=== PATIENT | male | born 1945 | race African-American/Black ===

== ENCOUNTER 2016-12-20 19:34 | Inpatient (IN) | payer OTHER, MEDICAID, MEDICARE ==
[~2016-12-20] VITALS: Ht 177.8 cm; Wt 90.6 kg
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
[2016-12-20 20:01] VITALS: BP 129/77; PULSE 67; RESP 18; TEMP 99.1; O2SAT 99
[2016-12-20 20:44] LABS: AUTOMATED NEUTROPHIL # 5.3 TH/MM3 (1.8-7.7); BASOPHIL # 0.1 TH/MM3 (0-0.2); BASOPHIL % 0.8 % (0.0-2.0); EOSINOPHIL # 0.1 TH/MM3 (0-0.4); HEMATOCRIT 33.3 % (39.0-51.0); HEMO FLAGS DIFF FINAL; LYMPH % 13.8 % (9.0-44.0); MEAN CELL VOLUME 84.5 FL (80.0-100.0); MEAN CORPUSCULAR HEMOGLOBIN 28.3 PG (27.0-34.0); MEAN CORPUSCULAR HGB CONC 33.5 % (32.0-36.0); NEUT % 73.4 % (16.0-70.0); PLATELET COUNT 159 TH/MM3 (150-450); RED BLOOD COUNT 3.95 MIL/MM3 (4.50-5.90); RED CELL DISTRIBUTION WIDTH 13.9 % (11.6-17.2); WHITE BLOOD COUNT 7.3 TH/MM3 (4.0-11.0)
[2016-12-20 21:20] LABS: ALKALINE PHOSPHATASE 136 U/L (45-117); ALT (GPT) 25 U/L (12-78); ANION GAP 6 MEQ/L (5-15); AST (GOT) 23 U/L (15-37); BICARBONATE 28.6 MEQ/L (21.0-32.0); BLOOD UREA NITROGEN 22 MG/DL (7-18); CHLORIDE 106 MEQ/L (98-107); GLOMERULAR FILTRATION RATE 57 ML/MIN (>89); SODIUM (NA) 141 MEQ/L (136-145); TOTAL BILIRUBIN ADULT 0.5 MG/DL (0.2-1.0)
[2016-12-20 21:22] LABS: POTASSIUM 4.1 MEQ/L (3.5-5.1)
[2016-12-20] MEDS ORDERED: ARIP1TAB5 PO (22:11)
[2016-12-20] MEDS ORDERED: APLI5INJ2 IM (22:11)
[2016-12-20] MEDS ORDERED: ALUM1SUS PO (22:11)
[2016-12-20] MEDS ORDERED: VITA100018 PO (22:11)
[2016-12-20] MEDS ORDERED: VITA500T49 PO (22:11)
[2016-12-20] MEDS ORDERED: MELA1TAB18 PO (22:11)
[2016-12-20] MEDS ORDERED: ASPI-110 PO (22:11)
[2016-12-20] MEDS ORDERED: LOSA50TA PO (22:11)
[2016-12-20] MEDS ORDERED: ABH TOPICAL (22:11)
[2016-12-20] MEDS ORDERED: METO25TA6 PO (22:11)
[2016-12-20] MEDS ORDERED: BUSP5TAB PO (22:11)
[2016-12-20] MEDS ORDERED: AMLO10TA2 PO (22:11)
[2016-12-20 23:30] VITALS: BP 132/75; PULSE 68; RESP 18; O2SAT 99
[2016-12-20 23:43] LABS: BLOOD, URINE NEG (NEG); COMMENT (UR) CULT NOT INDICATED; CULTURE IF INDICATED CULT NOT INDICATED; GLUCOSE,URINE NEG (NEG); KETONE, URINE NEG (NEG); NITRITE,URINE NEG (NEG); PH, URINE 6.5 (5.0-8.5); URINE COLOR LIGHT-YELLOW (YELLW/STRAW)
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
[2016-12-21 03:00] VITALS: BP 135/80; PULSE 66; RESP 18; O2SAT 99
[2016-12-21 06:34] VITALS: BP 145/83; PULSE 72; RESP 18; O2SAT 100
[2016-12-21 08:07] VITALS: BP 135/102; PULSE 80; RESP 16; O2SAT 95
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
[2016-12-21] MEDS ORDERED: ALUMINUM/MAGNESIUM/SIMETH 30 ML CUP PO PRN (09:45)
[2016-12-21] MEDS: METOPROLOL SUCCINATE 25 MG EXTENDED RELEASE TAB PO SCH (10:23)
[2016-12-21] MEDS: LOSARTAN 50 MG TAB PO SCH (10:23)
[2016-12-21] MEDS: ASPIRIN EC 81 MG TABEC PO SCH (10:23)
[2016-12-21 13:53] VITALS: BP 132/88; PULSE 72; RESP 18; TEMP 98.8
[2016-12-21] MEDS ORDERED: LORazepam 2 MG/ML VIAL ONE (14:41)
[2016-12-21 18:05] VITALS: BP 128/70; PULSE 67; RESP 16; TEMP 97.2; O2SAT 98
[2016-12-21] MEDS: busPIRone HCL 5 MG TAB PO SCH (20:38)
[2016-12-22 06:07] VITALS: BP 132/86; PULSE 66; RESP 20; TEMP 97.6; O2SAT 95
[2016-12-22 08:40] LABS: HEMOGLOBIN A1a 1.2 %; HEMOGLOBIN A1b 1.3 %; HEMOGLOBIN Ao 86.8 %; HEMOGLOBIN LA1C 1.9 %
[2016-12-22] MEDS: LOSARTAN 50 MG TAB PO SCH (08:42)
[2016-12-22] MEDS: ASPIRIN EC 81 MG TABEC PO SCH (08:42)
[2016-12-22] MEDS: METOPROLOL SUCCINATE 25 MG EXTENDED RELEASE TAB PO SCH (08:42)
[2016-12-22] MEDS: busPIRone HCL 5 MG TAB PO SCH ×2 (08:43→22:13)
[2016-12-22 09:17] LABS: ANION GAP 8 MEQ/L (5-15); BICARBONATE 29.7 MEQ/L (21.0-32.0); BLOOD UREA NITROGEN 24 MG/DL (7-18); CHLORIDE 101 MEQ/L (98-107); GLOMERULAR FILTRATION RATE 75 ML/MIN (>89); HDL CHOLESTEROL 43.9 MG/DL (40.0-60.0); LDL CHOLESTEROL 122 MG/DL (0-99); POTASSIUM 4.1 MEQ/L (3.5-5.1); SODIUM (NA) 139 MEQ/L (136-145)
[2016-12-22] MEDS ORDERED: diphenhydrAMINE HCL 50 MG/ML VIAL IM STA (10:01)
[2016-12-22] MEDS ORDERED: LORazepam 2 MG/ML VIAL IM STA (10:05)
[2016-12-22] MEDS ORDERED: HALOPERIDOL LACTATE 5 MG/ML AMP IM STA (10:07)
[2016-12-22] MEDS ORDERED: ALUMINUM/MAGNESIUM/SIMETH 30 ML CUP PO PRN (10:15)
[2016-12-22] MEDS ORDERED: MAGNESIUM HYDROXIDE SUSP 30 ML CUP PO PRN (10:15)
[2016-12-22] MEDS ORDERED: ACETAMINOPHEN 325 MG TAB PO PRN (10:15)
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
--- NOTE | 2016-12-22 11:53 | HHI.PYPN ---
Objective Alert: Yes [place]: Situation (not oriented) Mood: Agitated Affect: Other (labile) Memory Intact: Comment (Impaired for recent, remote) Hallucinations: Other (unable to determine) Delusions: No Suicidal: Ideation (unable to determine) Homicidal: Ideation (unable to determine) Labs Test 12/22/16 07:14 Sodium Level 139 MEQ/L Potassium Level 4.1 MEQ/L Chloride Level 101 MEQ/L Carbon Dioxide Level 29.7 MEQ/L Anion Gap 8 MEQ/L Blood Urea Nitrogen 24 MG/DL Creatinine 1.16 MG/DL Estimat Glomerular Filtration 75 ML/MIN Rate Random Glucose 79 MG/DL Hemoglobin A1c 4.7 % Calcium Level 9.7 MG/DL Triglycerides Level 118 MG/DL Cholesterol Level 189 MG/DL LDL Cholesterol 122 MG/DL HDL Cholesterol 43.9 MG/DL Cholesterol/HDL Ratio 4.30 RATIO Vitamin B12 Level 1981 PG/ML 25-Hydroxy Vitamin D Total 30.8 ng/ML Vitals/IOs Vital Signs Date Time Temp Pulse Resp B/P Pulse Ox O2 Delivery O2 Flow Rate FiO2 12/22/16 06:07 97.6 66 20 132/86 95 12/21/16 08:07 Room Air Intake and Output 12/21/16 12/21/16 12/22/16 08:00 16:00 00:00 Intake Total 840 ml Balance 840 ml Assessment & Plan Problem List: (1) Dementia of Alzheimer's type with behavioral disturbance ICD Code: G30.8 Assessment & Plan Estimated LOS: days Request HC Surrog/Guard Advoc?: Yes Ashu Wolff MD December 22, 2016 11:53
[2016-12-22 17:18] VITALS: BP 123/80; PULSE 60; RESP 16; TEMP 96.5
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
[2016-12-22] MEDS ORDERED: ALUMINUM/MAGNESIUM/SIMETH 30 ML CUP PO SCH (21:00)
[2016-12-23 06:00] VITALS: BP 120/69; PULSE 73; RESP 16; TEMP 98.3; O2SAT 99
[2016-12-23] MEDS: CYANOCOBALAMIN 100 MCG TAB PO SCH (08:29)
[2016-12-23] MEDS: ARIPiprazole 10 MG TAB PO SCH (08:29)
[2016-12-23] MEDS: PRAVASTATIN SOD 20 MG TAB PO SCH (08:29)
[2016-12-23] MEDS: CHOLECALCIFEROL (VIT D3) 1000 UNIT TAB PO SCH (08:29)
[2016-12-23] MEDS: ASPIRIN EC 81 MG TABEC PO SCH (08:29)
[2016-12-23] MEDS: METOPROLOL SUCCINATE 25 MG EXTENDED RELEASE TAB PO SCH (08:29)
[2016-12-23] MEDS: busPIRone HCL 5 MG TAB PO SCH ×2 (08:29→20:47)
[2016-12-23] MEDS: LOSARTAN 50 MG TAB PO SCH (08:29)
[2016-12-23] MEDS: hydrOXYzine HCL 50 MG TAB PO PRN (12:19)
[2016-12-23 13:28] LABS: BICARBONATE 25.4 MEQ/L (21.0-32.0); POTASSIUM 4.2 MEQ/L (3.5-5.1)
--- NOTE | 2016-12-23 16:23 | HHI.PYPN ---
Subjective Remarks Patient seen in day room for staff, patient continues somewhat irritable labile markedly diffusely confused and demented. He is also attempting frequently to get out of his Saranya chair which the true very high fall risk of injury. Will place patient on one-to-one observation. Compliant medication Review of Systems Except as stated in HPI: all other systems reviewed are Neg Objective Alert: Yes [place]: Situation (not oriented) Mood: Agitated Affect: Other (labile) Memory Intact: Comment (Impaired for recent, remote) Hallucinations: Other (unable to determine) Delusions: No Delusion Type: Paranoid Suicidal: Ideation (unable to determine) Homicidal: Ideation (unable to determine) Insight/Judgment Very poor Labs Test 12/23/16 08:03 Sodium Level 138 MEQ/L Potassium Level 4.2 MEQ/L Chloride Level 102 MEQ/L Carbon Dioxide Level 25.4 MEQ/L Anion Gap 11 MEQ/L Blood Urea Nitrogen 23 MG/DL Creatinine 1.20 MG/DL Estimat Glomerular Filtration 73 ML/MIN Rate Random Glucose 99 MG/DL Calcium Level 9.7 MG/DL Thyroid Stimulating Hormone 2.120 uIU/ML 3rd Gen Vitals/IOs Vital Signs Date Time Temp Pulse Resp B/P Pulse Ox O2 Delivery O2 Flow Rate FiO2 12/23/16 06:00 98.3 73 16 120/69 99 12/21/16 08:07 Room Air Intake and Output 12/22/16 12/22/16 12/23/16 08:00 16:00 00:00 Intake Total 480 ml Balance 480 ml Assessment & Plan Problem List: (1) Dementia of Alzheimer's type with behavioral disturbance ICD Code: G30.8 Assessment & Plan Estimated LOS: days patient continues demented confused at times somewhat labile will place on one-to-one observation. Patient scheduled for [facility] [facility] tomorrow Justification for Cont. Inpt. At this time patient will decompensate if placed in a lower level of care Discharge Planning To be determined Request HC Surrog/Guard Advoc?: Yes Problem Qualifiers (1) Dementia of Alzheimer's type with behavioral disturbance: Qualified Code: G30.8 - Alzheimer's dementia with behavioral disturbance, unspecified timing of dementia onset Bharath Espinal MD December 23, 2016 16:23
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
[2016-12-23 20:00] VITALS: BP 104/64; PULSE 69; RESP 18; TEMP 97.4
[2016-12-23] MEDS: MELATONIN 5 MG TAB PO PRN (20:47)
[2016-12-24] MEDS: diphenhydrAMINE HCL 50 MG CAP PO PRN ×2 (01:39→21:31)
[2016-12-24] MEDS: hydrOXYzine HCL 50 MG TAB PO PRN ×2 (02:48→21:31)
[2016-12-24 05:00] VITALS: BP 93/56; PULSE 62; RESP 17; TEMP 96.5
[2016-12-24 08:34] VITALS: BP 110/60; PULSE 68
[2016-12-24] MEDS: ARIPiprazole 10 MG TAB PO SCH (09:00)
[2016-12-24] MEDS: METOPROLOL SUCCINATE 25 MG EXTENDED RELEASE TAB PO SCH (09:00)
[2016-12-24] MEDS: CYANOCOBALAMIN 100 MCG TAB PO SCH (09:00)
[2016-12-24] MEDS: busPIRone HCL 5 MG TAB PO SCH ×2 (09:00→21:31)
[2016-12-24] MEDS: PRAVASTATIN SOD 20 MG TAB PO SCH (09:00)
[2016-12-24] MEDS: CHOLECALCIFEROL (VIT D3) 1000 UNIT TAB PO SCH (09:00)
[2016-12-24] MEDS: LOSARTAN 50 MG TAB PO SCH (09:00)
[2016-12-24] MEDS: ASPIRIN EC 81 MG TABEC PO SCH (09:00)
--- NOTE | 2016-12-24 10:45 | HHI.PYPN ---
Subjective Remarks Patient seen in [place] [facility], patient case continued by Suction Operator Shauna. Chart reviewed, Patient remains confused disoriented and demented. Though no significant behavioral problems noted, compliant medications. It appears to maybe placement available for this gentleman in the near future. We'll continue to work with this and with family Review of Systems Except as stated in HPI: all other systems reviewed are Neg Objective Alert: Yes [place]: Situation (not oriented) Mood: Agitated Affect: Other (labile) Memory Intact: Comment (Impaired for recent, remote) Hallucinations: Other (unable to determine) Delusions: No Delusion Type: Paranoid Suicidal: Ideation (unable to determine) Homicidal: Ideation (unable to determine) Insight/Judgment Poor Vitals/IOs Vital Signs Date Time Temp Pulse Resp B/P Pulse Ox O2 Delivery O2 Flow Rate FiO2 12/24/16 08:34 68 110/60 12/24/16 05:00 96.5 17 12/23/16 06:00 99 12/21/16 08:07 Room Air Intake and Output 12/23/16 12/23/16 12/24/16 08:00 16:00 00:00 Intake Total 1440 ml 1440 ml Balance 1440 ml 1440 ml Assessment & Plan Problem List: (1) Dementia of Alzheimer's type with behavioral disturbance ICD Code: G30.8 Assessment & Plan Estimated LOS: days patient continues confused and demented, cases been continued by [facility] [facility] production clerks supervisor Shauna. Compliant medication. Justification for Cont. Inpt. At this time patient will decompensate in place to the lower level of care Discharge Planning To be determined Request HC Surrog/Guard Advoc?: Yes Problem Qualifiers (1) Dementia of Alzheimer's type with behavioral disturbance: Qualified Code: G30.8 - Alzheimer's dementia with behavioral disturbance, unspecified timing of dementia onset Bharath Espinal MD Dec 24, 2016 10:45
[2016-12-24 18:00] VITALS: BP 138/77; PULSE 69; RESP 18; TEMP 96.7
[2016-12-25] MEDS: MAGNESIUM HYDROXIDE SUSP 30 ML CUP PO PRN (05:59)
[2016-12-25 06:00] VITALS: BP 153/87; PULSE 64; RESP 16; TEMP 98.2
[2016-12-25] MEDS: ASPIRIN EC 81 MG TABEC PO SCH (09:31)
[2016-12-25] MEDS: METOPROLOL SUCCINATE 25 MG EXTENDED RELEASE TAB PO SCH (09:31)
[2016-12-25] MEDS: ARIPiprazole 10 MG TAB PO SCH (09:31)
[2016-12-25] MEDS: LOSARTAN 50 MG TAB PO SCH (09:31)
[2016-12-25] MEDS: PRAVASTATIN SOD 20 MG TAB PO SCH (09:31)
[2016-12-25] MEDS: CYANOCOBALAMIN 100 MCG TAB PO SCH (09:31)
[2016-12-25] MEDS: busPIRone HCL 5 MG TAB PO SCH ×2 (09:31→20:25)
[2016-12-25] MEDS: CHOLECALCIFEROL (VIT D3) 1000 UNIT TAB PO SCH (09:31)
--- NOTE | 2016-12-25 13:14 | HHI.PYPN ---
Subjective Remarks Patient seen in dayroom with nurse pain. Chart reviewed. Patient this time calm dosing arousable to confused and mildly irritable. Staff states earlier today he was somewhat more irritable especially toward staff. Compliant medications. For now continue treatment Review of Systems Except as stated in HPI: all other systems reviewed are Neg Objective Alert: Yes [place]: Situation (not oriented) Mood: Agitated Affect: Other (labile) Memory Intact: Comment (Impaired for recent, remote) Hallucinations: Other (unable to determine) Delusions: No Delusion Type: Paranoid Suicidal: Ideation (unable to determine) Homicidal: Ideation (unable to determine) Insight/Judgment Poor Vitals/IOs Vital Signs Date Time Temp Pulse Resp B/P Pulse Ox O2 Delivery O2 Flow Rate FiO2 12/25/16 06:00 98.2 64 16 153/87 12/23/16 06:00 99 12/21/16 08:07 Room Air Intake and Output 12/24/16 12/24/16 12/25/16 08:00 16:00 00:00 Intake Total 960 ml 1200 ml 480 ml Balance 960 ml 1200 ml 480 ml Assessment & Plan Problem List: (1) Dementia of Alzheimer's type with behavioral disturbance ICD Code: G30.8 Assessment & Plan Estimated LOS: days patient remains quite confused demented, with some behavioral issues. Compliant medication. For now continue treatment Justification for Cont. Inpt. At this time patient will decompensate the placed in a lower level of care Discharge Planning To be determined Request HC Surrog/Guard Advoc?: Yes Problem Qualifiers (1) Dementia of Alzheimer's type with behavioral disturbance: Qualified Code: G30.8 - Alzheimer's dementia with behavioral disturbance, unspecified timing of dementia onset Bharath Espinal MD Dec 25, 2016 13:14
[2016-12-25 19:25] VITALS: BP 127/81; PULSE 77; RESP 16; TEMP 97.2; O2SAT 95
[2016-12-25] MEDS: hydrOXYzine HCL 50 MG TAB PO PRN (20:24)
[2016-12-25] MEDS: MELATONIN 5 MG TAB PO PRN (20:25)
[2016-12-26 05:35] VITALS: BP 122/60; PULSE 61; RESP 12; TEMP 97.2; O2SAT 97
[2016-12-26] MEDS: ARIPiprazole 10 MG TAB PO SCH (08:42)
[2016-12-26] MEDS: ASPIRIN EC 81 MG TABEC PO SCH (08:43)
[2016-12-26] MEDS: METOPROLOL SUCCINATE 25 MG EXTENDED RELEASE TAB PO SCH (08:43)
[2016-12-26] MEDS: busPIRone HCL 5 MG TAB PO SCH ×2 (08:43→21:51)
[2016-12-26] MEDS: CHOLECALCIFEROL (VIT D3) 1000 UNIT TAB PO SCH (08:43)
[2016-12-26] MEDS: LOSARTAN 50 MG TAB PO SCH (08:43)
[2016-12-26] MEDS: PRAVASTATIN SOD 20 MG TAB PO SCH (08:43)
[2016-12-26] MEDS: CYANOCOBALAMIN 100 MCG TAB PO SCH (08:43)
[2016-12-26] MEDS ORDERED: LORazepam 2 MG/ML VIAL IM STA (10:16)
[2016-12-26] MEDS ORDERED: diphenhydrAMINE HCL 50 MG/ML VIAL IM STA (10:16)
[2016-12-26] MEDS ORDERED: HALOPERIDOL LACTATE 5 MG/ML AMP IM STA (10:16)
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
[2016-12-26] MEDS ORDERED: diphenhydrAMINE HCL 50 MG/ML VIAL IM ONE (16:15)
[2016-12-26] MEDS ORDERED: HALOPERIDOL LACTATE 5 MG/ML AMP IM ONE (16:15)
[2016-12-26] MEDS ORDERED: LORazepam 2 MG/ML VIAL IM ONE (16:15)
[2016-12-26 18:00] VITALS: BP 123/73; PULSE 60; RESP 16; TEMP 96.8; O2SAT 99
[2016-12-27 06:27] VITALS: BP 136/85; PULSE 65; RESP 16; TEMP 98.5; O2SAT 98
[2016-12-27] MEDS: hydrOXYzine HCL 50 MG TAB PO PRN ×2 (09:23→14:14)
[2016-12-27] MEDS: PRAVASTATIN SOD 20 MG TAB PO SCH (09:23)
[2016-12-27] MEDS: LOSARTAN 50 MG TAB PO SCH (09:23)
[2016-12-27] MEDS: busPIRone HCL 5 MG TAB PO SCH ×2 (09:23→21:01)
[2016-12-27] MEDS: CYANOCOBALAMIN 100 MCG TAB PO SCH (09:23)
[2016-12-27] MEDS: ARIPiprazole 10 MG TAB PO SCH (09:24)
[2016-12-27] MEDS: CHOLECALCIFEROL (VIT D3) 1000 UNIT TAB PO SCH (09:24)
[2016-12-27] MEDS: ASPIRIN EC 81 MG TABEC PO SCH (09:24)
[2016-12-27] MEDS: METOPROLOL SUCCINATE 25 MG EXTENDED RELEASE TAB PO SCH (09:24)
--- NOTE | 2016-12-27 10:52 | HHI.PYPN ---
Subjective Remarks Pt seen and discussed with staff. No aggression or agitation today with 1:1 staff. He remains irritable but has been more redirectable. Took medications without complaint. No side effects. Objective Alert: Yes [place]: Person Mood: Other (irritable) Affect: Restricted Memory Intact: Comment (impaired) Hallucinations: Other (none) Delusions: Yes Delusion Type: Paranoid Suicidal: Ideation (unable to determine) Homicidal: Ideation (unable to determine) Insight/Judgment poor Vitals/IOs Vital Signs Date Time Temp Pulse Resp B/P Pulse Ox O2 Delivery O2 Flow Rate FiO2 12/27/16 06:27 98.5 65 16 136/85 98 Intake and Output 12/26/16 12/26/16 12/27/16 08:00 16:00 00:00 Intake Total 0 ml 1630 ml Output Total 550 ml Balance 0 ml 1080 ml Assessment & Plan Problem List: (1) Dementia of Alzheimer's type with behavioral disturbance ICD Code: G30.8 Assessment & Plan Continue current tx plan. Estimated LOS: days Justification for Cont. Inpt. impairments in safety Request HC Surrog/Guard Advoc?: Yes Problem Qualifiers (1) Dementia of Alzheimer's type with behavioral disturbance: Qualified Code: G30.8 - Alzheimer's dementia with behavioral disturbance, unspecified timing of dementia onset Ramona Garcia MD Dec 27, 2016 10:52
[2016-12-27 18:55] VITALS: BP 131/75; PULSE 75; RESP 18; TEMP 97.2
[2016-12-28 05:53] VITALS: BP 120/55; PULSE 60; RESP 20; TEMP 97.8; O2SAT 97
[2016-12-28] MEDS: PRAVASTATIN SOD 20 MG TAB PO SCH (09:33)
[2016-12-28] MEDS: CYANOCOBALAMIN 100 MCG TAB PO SCH (09:33)
[2016-12-28] MEDS: busPIRone HCL 5 MG TAB PO SCH ×2 (09:33→20:26)
[2016-12-28] MEDS: ARIPiprazole 10 MG TAB PO SCH (09:33)
[2016-12-28] MEDS: LOSARTAN 50 MG TAB PO SCH (09:33)
[2016-12-28] MEDS: CHOLECALCIFEROL (VIT D3) 1000 UNIT TAB PO SCH (09:33)
[2016-12-28] MEDS: ASPIRIN EC 81 MG TABEC PO SCH (09:33)
[2016-12-28] MEDS: METOPROLOL SUCCINATE 25 MG EXTENDED RELEASE TAB PO SCH (09:33)
[2016-12-28] MEDS ORDERED: LORazepam 2 MG/ML VIAL IM STA (11:21)
[2016-12-28] MEDS ORDERED: HALOPERIDOL LACTATE 5 MG/ML AMP IM STA (11:21)
[2016-12-28] MEDS ORDERED: diphenhydrAMINE HCL 50 MG/ML VIAL IM STA (11:21)
[2016-12-28] MEDS ORDERED: LORazepam 2 MG/ML VIAL ONE (11:22)
[2016-12-28] MEDS ORDERED: diphenhydrAMINE HCL 50 MG/ML VIAL ONE (11:22)
[2016-12-28] MEDS ORDERED: HALOPERIDOL LACTATE 5 MG/ML AMP ONE (11:22)
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
--- NOTE | 2016-12-28 16:21 | PD.TTN ---
Present for Treatment Team Treatment Team Staff: Provider (Dr. Espinal), Nurse (Juan Alberto), Psych Therapist ( HAKEEM Fishman), Other (Regi, recreation therapy) Patient Problems 1. Discharge planning 2. Medication compliance 3. Knowledge deficit 4. Lack of coping skills Progress Toward Goals Provider Input: Dr. Bronw reported the patient has remained fiesty & aggressive. Patient's medication will be discontinued and Dr. Espinal will try another medication in an effort to see more stabilization. Psych Therapist Input: Patient remains aggressive towards peers and staff and placement will be a challenge due to these aggressive behaviors. Documentation Scribe: HAKEEM Fishman Date Resolved: Dec 28, 2016 Madyson Stanford Dec 28, 2016 16:21
[2016-12-28 18:00] VITALS: BP 103/63; PULSE 87; RESP 18; TEMP 98.2
[2016-12-28] MEDS: hydrOXYzine HCL 50 MG TAB PO PRN (20:26)
[2016-12-28] MEDS: MELATONIN 5 MG TAB PO PRN (20:26)
[2016-12-28] MEDS: QUEtiapine FUMARATE 25 MG TAB PO SCH (20:26)
[2016-12-29 05:41] VITALS: BP 97/56; PULSE 60; RESP 16; TEMP 97.5; O2SAT 96
[2016-12-29] MEDS: QUEtiapine FUMARATE 25 MG TAB PO SCH ×3 (08:00→20:54)
[2016-12-29] MEDS: busPIRone HCL 5 MG TAB PO SCH ×2 (08:40→20:54)
[2016-12-29] MEDS: PRAVASTATIN SOD 20 MG TAB PO SCH (08:40)
[2016-12-29] MEDS: CYANOCOBALAMIN 100 MCG TAB PO SCH (08:40)
[2016-12-29] MEDS: ASPIRIN EC 81 MG TABEC PO SCH (08:40)
[2016-12-29] MEDS: CHOLECALCIFEROL (VIT D3) 1000 UNIT TAB PO SCH (08:40)
[2016-12-29] MEDS: METOPROLOL SUCCINATE 25 MG EXTENDED RELEASE TAB PO SCH (08:41)
[2016-12-29] MEDS: LOSARTAN 50 MG TAB PO SCH (09:00)
--- NOTE | 2016-12-29 12:13 | HHI.PYPN ---
Subjective Remarks Patient seen in day room with nurse Juan Alberto, chart review, patient compliant medications. It appears he remains somewhat impulsive appears earlier today he did staff and they are. With me at this time patient was calm mumbling confusingly though no explosiveness noted for now continue treatment Review of Systems Except as stated in HPI: all other systems reviewed are Neg Objective Alert: Yes [place]: Person Mood: Other (irritable) Affect: Restricted Memory Intact: Comment (impaired) Hallucinations: Other (none) Delusions: Yes Delusion Type: Paranoid Suicidal: Ideation (unable to determine) Homicidal: Ideation (unable to determine) Insight/Judgment Very poor Vitals/IOs Vital Signs Date Time Temp Pulse Resp B/P Pulse Ox O2 Delivery O2 Flow Rate FiO2 12/29/16 05:41 97.5 60 16 97/56 96 Intake and Output 12/28/16 12/28/16 12/29/16 08:00 16:00 00:00 Intake Total 240 ml 720 ml Balance 240 ml 720 ml Assessment & Plan Problem List: (1) Dementia of Alzheimer's type with behavioral disturbance ICD Code: G30.8 Assessment & Plan Estimated LOS: days patient continues implanted at times somewhat explosive with his behavior. Patient compliant with medication changes done yesterday. For now continue treatment Justification for Cont. Inpt. At this time patient will decompensate placed in a lower level of care Discharge Planning To be determined Request HC Surrog/Guard Advoc?: Yes Problem Qualifiers (1) Dementia of Alzheimer's type with behavioral disturbance: Qualified Code: G30.8 - Alzheimer's dementia with behavioral disturbance, unspecified timing of dementia onset Bharath Espinal MD Dec 29, 2016 12:13
[2016-12-29 17:55] VITALS: BP 136/88
[2016-12-29] MEDS: MELATONIN 5 MG TAB PO PRN (20:53)
[2016-12-29] MEDS: hydrOXYzine HCL 50 MG TAB PO PRN (20:55)
[2016-12-30 05:23] VITALS: BP 145/76; PULSE 60; RESP 18; TEMP 96.8; O2SAT 98
[2016-12-30] MEDS: QUEtiapine FUMARATE 25 MG TAB PO SCH ×3 (08:00→20:34)
[2016-12-30] MEDS: busPIRone HCL 5 MG TAB PO SCH ×2 (08:53→20:16)
[2016-12-30] MEDS: ASPIRIN EC 81 MG TABEC PO SCH (08:53)
[2016-12-30] MEDS: LOSARTAN 50 MG TAB PO SCH (08:53)
[2016-12-30] MEDS: CYANOCOBALAMIN 100 MCG TAB PO SCH (08:54)
[2016-12-30] MEDS: METOPROLOL SUCCINATE 25 MG EXTENDED RELEASE TAB PO SCH (08:54)
[2016-12-30] MEDS: PRAVASTATIN SOD 20 MG TAB PO SCH (08:54)
[2016-12-30] MEDS: CHOLECALCIFEROL (VIT D3) 1000 UNIT TAB PO SCH (08:54)
--- NOTE | 2016-12-30 09:04 | HHI.PYPN ---
Subjective Remarks Patient seen in day room with nurse Sandra, patient eating breakfast, patient calm somewhat more alert, continues markedly disorganized speech and diffusely confused. There appears that he might have recognize me from prior visits patient compliant medication staff states he slept better last night Review of Systems Except as stated in HPI: all other systems reviewed are Neg Objective Alert: Yes [place]: Person Mood: Other (irritable) Affect: Restricted Memory Intact: Comment (impaired) Hallucinations: Other (none) Delusions: Yes Delusion Type: Paranoid Suicidal: Ideation (unable to determine) Homicidal: Ideation (unable to determine) Insight/Judgment Very poor Vitals/IOs Vital Signs Date Time Temp Pulse Resp B/P Pulse Ox O2 Delivery O2 Flow Rate FiO2 12/30/16 05:23 96.8 60 18 145/76 98 Intake and Output 12/29/16 12/29/16 12/30/16 08:00 16:00 00:00 Intake Total 0 ml 480 ml Output Total 200 ml Balance -200 ml 480 ml Assessment & Plan Problem List: (1) Dementia of Alzheimer's type with behavioral disturbance ICD Code: G30.8 Assessment & Plan Estimated LOS: days patient continues markedly demented confused though at the present time calm cooperative Justification for Cont. Inpt. At this time patient will decompensate with placed a lower level of care Discharge Planning To be determined Request HC Surrog/Guard Advoc?: Yes Problem Qualifiers (1) Dementia of Alzheimer's type with behavioral disturbance: Qualified Code: G30.8 - Alzheimer's dementia with behavioral disturbance, unspecified timing of dementia onset Bharath Espinal MD Dec 30, 2016 09:04
[2016-12-30 19:40] VITALS: BP 132/63; PULSE 72; RESP 18; TEMP 98.2
[2016-12-31] MEDS: QUEtiapine FUMARATE 25 MG TAB PO SCH ×3 (08:00→20:17)
[2016-12-31 08:45] VITALS: BP 120/63; PULSE 69; RESP 16; TEMP 97.1; O2SAT 99
[2016-12-31] MEDS: METOPROLOL SUCCINATE 25 MG EXTENDED RELEASE TAB PO SCH (09:00)
[2016-12-31] MEDS: PRAVASTATIN SOD 20 MG TAB PO SCH (09:00)
[2016-12-31] MEDS: ASPIRIN EC 81 MG TABEC PO SCH (09:00)
[2016-12-31] MEDS: LOSARTAN 50 MG TAB PO SCH (09:00)
[2016-12-31] MEDS: CHOLECALCIFEROL (VIT D3) 1000 UNIT TAB PO SCH (09:00)
[2016-12-31] MEDS: busPIRone HCL 5 MG TAB PO SCH ×2 (09:00→20:15)
[2016-12-31] MEDS: CYANOCOBALAMIN 100 MCG TAB PO SCH (09:00)
--- NOTE | 2016-12-31 10:59 | HHI.PYPN ---
Subjective Remarks Patient seen in day room with nurse Shanice, chart review, patient compliant medication. Patient continues markedly confused and disoriented though it appears his behaviors are softening this time increasing in intensity frequency and duration. For now continue treatment Review of Systems Except as stated in HPI: all other systems reviewed are Neg Objective Alert: Yes [place]: Person Mood: Other (irritable) Affect: Restricted Memory Intact: Comment (impaired) Hallucinations: Other (none) Delusions: Yes Delusion Type: Paranoid Suicidal: Ideation (unable to determine) Homicidal: Ideation (unable to determine) Insight/Judgment Poor Vitals/IOs Vital Signs Date Time Temp Pulse Resp B/P Pulse Ox O2 Delivery O2 Flow Rate FiO2 12/31/16 08:45 97.1 69 16 120/63 99 Intake and Output 12/30/16 12/30/16 12/31/16 08:00 16:00 00:00 Intake Total 360 ml 360 ml 720 ml Balance 360 ml 360 ml 720 ml Assessment & Plan Problem List: (1) Dementia of Alzheimer's type with behavioral disturbance ICD Code: G30.8 Assessment & Plan Estimated LOS: days patient continues demented confused, though it appears his behavioral issues are starting to soften. For now continue treatment Justification for Cont. Inpt. At this time patient will decompensate the placed in the lower level of care Discharge Planning To be determined Request HC Surrog/Guard Advoc?: Yes Problem Qualifiers (1) Dementia of Alzheimer's type with behavioral disturbance: Qualified Code: G30.8 - Alzheimer's dementia with behavioral disturbance, unspecified timing of dementia onset Bharath Espinal MD Dec 31, 2016 10:59
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
[2016-12-31 18:31] VITALS: BP 131/68; PULSE 68; RESP 18; TEMP 97.3; O2SAT 99
[2016-12-31] MEDS: diphenhydrAMINE HCL 50 MG CAP PO PRN (20:15)
[2017-01-01 05:00] VITALS: BP 143/76; PULSE 70; RESP 17; TEMP 97.1; O2SAT 98
[2017-01-01] MEDS: ASPIRIN EC 81 MG TABEC PO SCH (08:13)
[2017-01-01] MEDS: CYANOCOBALAMIN 100 MCG TAB PO SCH (08:14)
[2017-01-01] MEDS: busPIRone HCL 5 MG TAB PO SCH ×2 (08:14→20:26)
[2017-01-01] MEDS: hydrOXYzine HCL 50 MG TAB PO PRN (08:14)
[2017-01-01] MEDS: LOSARTAN 50 MG TAB PO SCH (08:14)
[2017-01-01] MEDS: CHOLECALCIFEROL (VIT D3) 1000 UNIT TAB PO SCH (08:14)
[2017-01-01] MEDS: METOPROLOL SUCCINATE 25 MG EXTENDED RELEASE TAB PO SCH (08:14)
[2017-01-01] MEDS: PRAVASTATIN SOD 20 MG TAB PO SCH (08:14)
[2017-01-01] MEDS: QUEtiapine FUMARATE 25 MG TAB PO SCH ×3 (08:25→20:28)
--- NOTE | 2017-01-01 11:07 | HHI.PYPN ---
Subjective Remarks Patient seen in day room with nurse Ortega, chart review, patient compliant medications. Patient continues markedly confused disoriented, patient noted recently to be making gestures in the air as if reaching for things. However no aggressive behaviors have been noted towards staff or patients. For now continue treatment Review of Systems Except as stated in HPI: all other systems reviewed are Neg Objective Alert: Yes [place]: Person Mood: Other (irritable) Affect: Restricted Memory Intact: Comment (impaired) Hallucinations: Other (none) Delusions: Yes Delusion Type: Paranoid Suicidal: Ideation (unable to determine) Homicidal: Ideation (unable to determine) Insight/Judgment Very poor Vitals/IOs Vital Signs Date Time Temp Pulse Resp B/P Pulse Ox O2 Delivery O2 Flow Rate FiO2 01/01/17 05:00 97.1 70 17 143/76 98 Intake and Output 12/31/16 12/31/16 01/01/17 08:00 16:00 00:00 Intake Total 240 ml 3360 ml Balance 240 ml 3360 ml Assessment & Plan Problem List: (1) Dementia of Alzheimer's type with behavioral disturbance ICD Code: G30.8 Assessment & Plan Estimated LOS: days patient continues demented and confused, though the been no significant behavioral problems noted. Compliant medications Justification for Cont. Inpt. At this time patient will decompensate if placed in a lower level of care Discharge Planning To be determined Request HC Surrog/Guard Advoc?: Yes Problem Qualifiers (1) Dementia of Alzheimer's type with behavioral disturbance: Qualified Code: G30.8 - Alzheimer's dementia with behavioral disturbance, unspecified timing of dementia onset Bharath Espinal MD Jan 01, 2017 11:07
[2017-01-01 18:00] VITALS: BP 126/76; PULSE 77; RESP 17; TEMP 97.6; O2SAT 96
[2017-01-01] MEDS: diphenhydrAMINE HCL 50 MG CAP PO PRN (20:26)
[2017-01-02 06:02] VITALS: BP 136/75; PULSE 65; RESP 16; TEMP 96.8; O2SAT 98
[2017-01-02] MEDS: QUEtiapine FUMARATE 25 MG TAB PO SCH ×3 (08:00→20:25)
[2017-01-02] MEDS: CHOLECALCIFEROL (VIT D3) 1000 UNIT TAB PO SCH (09:00)
[2017-01-02] MEDS: LOSARTAN 50 MG TAB PO SCH (09:00)
[2017-01-02] MEDS: ASPIRIN EC 81 MG TABEC PO SCH (09:00)
[2017-01-02] MEDS: busPIRone HCL 5 MG TAB PO SCH ×2 (09:00→20:25)
[2017-01-02] MEDS: METOPROLOL SUCCINATE 25 MG EXTENDED RELEASE TAB PO SCH (09:00)
[2017-01-02] MEDS: PRAVASTATIN SOD 20 MG TAB PO SCH (09:00)
[2017-01-02] MEDS: CYANOCOBALAMIN 100 MCG TAB PO SCH (09:00)
[2017-01-02] MEDS: HALOPERIDOL LACTATE 5 MG/ML AMP IM PRN (12:40)
[2017-01-02] MEDS: LORazepam 2 MG/ML VIAL IM PRN (12:40)
[2017-01-02] MEDS: diphenhydrAMINE HCL 50 MG/ML VIAL IM PRN (12:40)
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
[2017-01-02 18:00] VITALS: BP 140/81; PULSE 73; RESP 16; TEMP 97.6; O2SAT 100
[2017-01-03 06:27] VITALS: BP 124/68; PULSE 59; RESP 16; TEMP 97.5; O2SAT 100
[2017-01-03] MEDS: METOPROLOL SUCCINATE 25 MG EXTENDED RELEASE TAB PO SCH (09:47)
[2017-01-03] MEDS: PRAVASTATIN SOD 20 MG TAB PO SCH (09:47)
[2017-01-03] MEDS: CHOLECALCIFEROL (VIT D3) 1000 UNIT TAB PO SCH (09:47)
[2017-01-03] MEDS: LOSARTAN 50 MG TAB PO SCH (09:47)
[2017-01-03] MEDS: CYANOCOBALAMIN 100 MCG TAB PO SCH (09:47)
[2017-01-03] MEDS: busPIRone HCL 5 MG TAB PO SCH ×2 (09:47→20:20)
[2017-01-03] MEDS: ASPIRIN EC 81 MG TABEC PO SCH (09:47)
[2017-01-03] MEDS: QUEtiapine FUMARATE 25 MG TAB PO SCH ×3 (09:49→20:20)
--- NOTE | 2017-01-03 13:19 | HHI.PYPN ---
Subjective Remarks Patient was seen and case discussed with nursing. Patient remains confused and disorganized. Alert and oriented 1. Has not had a need for more ETO's. No longer combative. Compliant with medications Objective Alert: Yes [place]: Person Mood: Calm Affect: Flat Memory Intact: Comment (impaired) Hallucinations: Other (none) Delusions: Yes Delusion Type: Paranoid Suicidal: Ideation (unable to determine) Homicidal: Ideation (unable to determine) Insight/Judgment Poor Vitals/IOs Vital Signs Date Time Temp Pulse Resp B/P Pulse Ox O2 Delivery O2 Flow Rate FiO2 01/03/17 06:27 97.5 59 16 124/68 100 Intake and Output 01/02/17 01/02/17 01/03/17 08:00 16:00 00:00 Intake Total 0 ml 360 ml 960 ml Balance 0 ml 360 ml 960 ml Assessment & Plan Problem List: (1) Dementia of Alzheimer's type with behavioral disturbance ICD Code: G30.8 Assessment & Plan Continue current treatment plan Justification for Cont. Inpt. Patient will decompensate in a less restrictive setting Request HC Surrog/Guard Advoc?: Yes Problem Qualifiers (1) Dementia of Alzheimer's type with behavioral disturbance: Qualified Code: G30.8 - Alzheimer's dementia with behavioral disturbance, unspecified timing of dementia onset Omkar Lazcano DO Jan 03, 2017 13:19
[2017-01-03] MEDS: hydrOXYzine HCL 50 MG TAB PO PRN (13:28)
[2017-01-03 20:00] VITALS: BP 130/72; PULSE 63; RESP 16; TEMP 98
[2017-01-03] MEDS: diphenhydrAMINE HCL 50 MG CAP PO PRN (20:20)
[2017-01-04 05:48] VITALS: BP 138/64; PULSE 59; RESP 16; TEMP 97.5; O2SAT 97
[2017-01-04] MEDS: QUEtiapine FUMARATE 25 MG TAB PO SCH ×3 (08:00→20:36)
[2017-01-04] MEDS: ASPIRIN EC 81 MG TABEC PO SCH (09:00)
[2017-01-04] MEDS: METOPROLOL SUCCINATE 25 MG EXTENDED RELEASE TAB PO SCH (09:00)
[2017-01-04] MEDS: LOSARTAN 50 MG TAB PO SCH (09:00)
[2017-01-04 09:41] VITALS: BP 112/61; PULSE 66
[2017-01-04] MEDS: PRAVASTATIN SOD 20 MG TAB PO SCH (09:52)
[2017-01-04] MEDS: CYANOCOBALAMIN 100 MCG TAB PO SCH (09:52)
[2017-01-04] MEDS: busPIRone HCL 5 MG TAB PO SCH ×2 (09:52→20:36)
[2017-01-04] MEDS: CHOLECALCIFEROL (VIT D3) 1000 UNIT TAB PO SCH (09:52)
--- NOTE | 2017-01-04 11:27 | PD.TTN ---
Present for Treatment Team Treatment Team Staff: Provider (Dr. Espinal), Psych Therapist (Madyson Stanford), Other Clinician (rec. Regi therapy) Patient Problems 1. Discharge planning 2. Medication compliance 3. Knowledge deficit 4. Lack of coping skills Progress Toward Goals Provider Input: Dr. Espinal reported the patient's status remains unchanged. Psych Therapist Input: Counselor reported the patient continues to be a placement issue as a result of his previous behaviors at a residential facillity. Patient remains compliant with medications and oriented to person at least. Patient continues to lack insight into his mental illness, and today her appears to be coping appropriately on the unit. Nursing notes indicated the patient became combative with peers and staff over the weekend and received an injection. Per nursing notes, the patient responded well to the injection and was in good behavioral control the remainder of the weekend. Other Clinican Input: rec. Regi therapy, reported the patient is visible on the unit and unable to tolerate the group activities. Documentation Scribe: Madyson Stanford Date Resolved: Jan 04, 2017 Madyson Stanford [facility] Jan 04, 2017 11:27
--- NOTE | 2017-01-04 13:47 | HHI.PYPN ---
Subjective Remarks Patient seen in day room in Saranya chair with nurse Nguyen, chart reviewed, patient compliant medications. Patient continues confused disoriented, though he has been no significant behavioral problems recently. Patient continues to needs significant interventions and assistance by staff For now continue treatment Review of Systems Except as stated in HPI: all other systems reviewed are Neg Objective Alert: Yes [place]: Person Mood: Calm Affect: Flat Memory Intact: Comment (impaired) Hallucinations: Other (none) Delusions: Yes Delusion Type: Paranoid Suicidal: Ideation (unable to determine) Homicidal: Ideation (unable to determine) Insight/Judgment Very poor Vitals/IOs Vital Signs Date Time Temp Pulse Resp B/P Pulse Ox O2 Delivery O2 Flow Rate FiO2 01/04/17 09:41 66 112/61 01/04/17 05:48 97.5 16 97 Intake and Output 01/03/17 01/03/17 01/04/17 08:00 16:00 00:00 Intake Total 1010 ml 960 ml Balance 1010 ml 960 ml Assessment & Plan Problem List: (1) Dementia of Alzheimer's type with behavioral disturbance ICD Code: G30.8 Assessment & Plan Estimated LOS: days patient continues demented confused, eating significant interventions. But no behavioral problems noted recently Justification for Cont. Inpt. At this time patient will decompensate the placed in a lower level of care Discharge Planning To be determined Request HC Surrog/Guard Advoc?: Yes Problem Qualifiers (1) Dementia of Alzheimer's type with behavioral disturbance: Qualified Code: G30.8 - Alzheimer's dementia with behavioral disturbance, unspecified timing of dementia onset Bharath Espinal MD Jan 04, 2017 13:46
[2017-01-04 18:01] VITALS: BP 112/60; PULSE 64; RESP 17; TEMP 97.4; O2SAT 97
[2017-01-05 06:08] VITALS: BP 114/59; PULSE 67; RESP 16; TEMP 97.2; O2SAT 99
[2017-01-05] MEDS: PRAVASTATIN SOD 20 MG TAB PO SCH (10:02)
[2017-01-05] MEDS: METOPROLOL SUCCINATE 25 MG EXTENDED RELEASE TAB PO SCH (10:02)
[2017-01-05] MEDS: ASPIRIN EC 81 MG TABEC PO SCH (10:03)
[2017-01-05] MEDS: CHOLECALCIFEROL (VIT D3) 1000 UNIT TAB PO SCH (10:03)
[2017-01-05] MEDS: busPIRone HCL 5 MG TAB PO SCH ×2 (10:03→21:00)
[2017-01-05] MEDS: CYANOCOBALAMIN 100 MCG TAB PO SCH (10:03)
[2017-01-05] MEDS: LOSARTAN 50 MG TAB PO SCH (10:04)
[2017-01-05] MEDS: QUEtiapine FUMARATE 25 MG TAB PO SCH ×3 (10:06→20:00)
--- NOTE | 2017-01-05 14:25 | HHI.PYPN ---
Subjective Remarks Patient seen in dayroom with floor staff, chart review, patient compliant medications. She continues diffusely confused disorganized, today is somewhat irritable and demanding reaching for my clipboard. Otherwise no significant behavioral problems. Review of Systems Except as stated in HPI: all other systems reviewed are Neg Objective Alert: Yes [place]: Person Mood: Calm Affect: Flat Memory Intact: Comment (impaired) Hallucinations: Other (none) Delusions: Yes Delusion Type: Paranoid Suicidal: Ideation (unable to determine) Homicidal: Ideation (unable to determine) Insight/Judgment Poor Vitals/IOs Vital Signs Date Time Temp Pulse Resp B/P Pulse Ox O2 Delivery O2 Flow Rate FiO2 01/05/17 06:08 97.2 67 16 114/59 99 Intake and Output 01/04/17 01/04/17 01/05/17 08:00 16:00 00:00 Intake Total 360 ml 1780 ml Output Total 0 ml Balance 0 ml 360 ml 1780 ml Assessment & Plan Problem List: (1) Dementia of Alzheimer's type with behavioral disturbance ICD Code: G30.8 Assessment & Plan Estimated LOS: days patient continues significantly confused and demented, though behaviors she suffered somewhat his little irritable today Justification for Cont. Inpt. At this time patient will decompensate if placed in a lower level of care Discharge Planning To be determined Request HC Surrog/Guard Advoc?: Yes Problem Qualifiers (1) Dementia of Alzheimer's type with behavioral disturbance: Qualified Code: G30.8 - Alzheimer's dementia with behavioral disturbance, unspecified timing of dementia onset Bharath Espinal MD Jan 05, 2017 14:25
[2017-01-05 17:20] VITALS: BP 144/80; PULSE 75; RESP 16; TEMP 97.4; O2SAT 99
[2017-01-05] MEDS: diphenhydrAMINE HCL 50 MG CAP PO PRN (21:00)
[2017-01-05] MEDS: MELATONIN 5 MG TAB PO PRN (21:00)
[2017-01-05] MEDS: ACETAMINOPHEN 325 MG TAB PO PRN (21:00)
[2017-01-06 05:14] VITALS: BP 125/69; PULSE 64; RESP 20; TEMP 98.2
[2017-01-06] MEDS: QUEtiapine FUMARATE 25 MG TAB PO SCH ×3 (08:00→20:00)
[2017-01-06] MEDS: ASPIRIN EC 81 MG TABEC PO SCH (09:00)
[2017-01-06] MEDS: PRAVASTATIN SOD 20 MG TAB PO SCH (09:00)
[2017-01-06] MEDS: LOSARTAN 50 MG TAB PO SCH (09:00)
[2017-01-06] MEDS: CYANOCOBALAMIN 100 MCG TAB PO SCH (09:00)
[2017-01-06] MEDS: METOPROLOL SUCCINATE 25 MG EXTENDED RELEASE TAB PO SCH (09:00)
[2017-01-06] MEDS: busPIRone HCL 5 MG TAB PO SCH ×2 (09:00→21:00)
[2017-01-06] MEDS: CHOLECALCIFEROL (VIT D3) 1000 UNIT TAB PO SCH (09:00)
--- NOTE | 2017-01-06 15:52 | HHI.PYPN ---
Subjective Remarks Patient seen in day room with nurse Shanice, chart review, patient compliant medications. Patient continues confused demented at times somewhat irascible but redirectable for now continue treatment Review of Systems Except as stated in HPI: all other systems reviewed are Neg Objective Alert: Yes [place]: Person Mood: Calm Affect: Flat Memory Intact: Comment (impaired) Hallucinations: Other (none) Delusions: Yes Delusion Type: Paranoid Suicidal: Ideation (unable to determine) Homicidal: Ideation (unable to determine) Insight/Judgment Very poor Vitals/IOs Vital Signs Date Time Temp Pulse Resp B/P Pulse Ox O2 Delivery O2 Flow Rate FiO2 01/06/17 05:14 98.2 64 20 125/69 01/05/17 17:20 99 Intake and Output 01/05/17 01/05/17 01/06/17 08:00 16:00 00:00 Intake Total 720 ml Balance 720 ml Assessment & Plan Problem List: (1) Dementia of Alzheimer's type with behavioral disturbance ICD Code: G30.8 Assessment & Plan Estimated LOS: days patient continues demented and confused, at times somewhat irritable but redirectable Justification for Cont. Inpt. At this time patient decompensate if placed in a lower level of care Discharge Planning To be determined Request HC Surrog/Guard Advoc?: Yes Problem Qualifiers (1) Dementia of Alzheimer's type with behavioral disturbance: Qualified Code: G30.8 - Alzheimer's dementia with behavioral disturbance, unspecified timing of dementia onset Bharath Espinal MD Jan 06, 2017 15:52
[2017-01-06 18:00] VITALS: BP 125/80; PULSE 64; RESP 20; TEMP 98.4; O2SAT 98
[2017-01-07 06:05] VITALS: BP 162/83; PULSE 70; RESP 17; TEMP 97.2; O2SAT 96
[2017-01-07] MEDS: QUEtiapine FUMARATE 25 MG TAB PO SCH ×3 (08:00→21:33)
[2017-01-07] MEDS: CYANOCOBALAMIN 100 MCG TAB PO SCH (09:00)
[2017-01-07] MEDS: busPIRone HCL 5 MG TAB PO SCH ×2 (09:00→21:33)
[2017-01-07] MEDS: PRAVASTATIN SOD 20 MG TAB PO SCH (09:00)
[2017-01-07] MEDS: ASPIRIN EC 81 MG TABEC PO SCH (09:00)
[2017-01-07] MEDS: METOPROLOL SUCCINATE 25 MG EXTENDED RELEASE TAB PO SCH (09:00)
[2017-01-07] MEDS: CHOLECALCIFEROL (VIT D3) 1000 UNIT TAB PO SCH (09:00)
[2017-01-07] MEDS: LOSARTAN 50 MG TAB PO SCH (09:00)
--- NOTE | 2017-01-07 15:26 | HHI.PYPN ---
Subjective Remarks Patient seen in [place] court, retained by [employer] Installer Shauna, patient showed no significant behavioral problems in the court hearing, he remains diffusely confused at times somewhat irritable on the unit. The behavioral issues. For now continue treatment Review of Systems Except as stated in HPI: all other systems reviewed are Neg Objective Alert: Yes [place]: Person Mood: Calm Affect: Flat Memory Intact: Comment (impaired) Hallucinations: Other (none) Delusions: Yes Delusion Type: Paranoid Suicidal: Ideation (unable to determine) Homicidal: Ideation (unable to determine) Insight/Judgment Very poor Vitals/IOs Vital Signs Date Time Temp Pulse Resp B/P Pulse Ox O2 Delivery O2 Flow Rate FiO2 01/07/17 06:05 97.2 70 17 162/83 96 Intake and Output 01/06/17 01/06/17 01/07/17 08:00 16:00 00:00 Intake Total 360 ml 240 ml 1200 ml Output Total 1 ml Balance 359 ml 240 ml 1200 ml Assessment & Plan Problem List: (1) Dementia of Alzheimer's type with behavioral disturbance ICD Code: G30.8 Assessment & Plan Estimated LOS: days patient continues to mentioning confused, no behavioral issues are softening quite a bit. For now continue treatment Justification for Cont. Inpt. At this time patient would decompensate if placed in a lower level of care Discharge Planning To be determined Request HC Surrog/Guard Advoc?: Yes Problem Qualifiers (1) Dementia of Alzheimer's type with behavioral disturbance: Qualified Code: G30.8 - Alzheimer's dementia with behavioral disturbance, unspecified timing of dementia onset Bharath Espinal MD Jan 07, 2017 15:26
[2017-01-07 18:01] VITALS: BP 127/79; PULSE 69; RESP 17; TEMP 98.2; O2SAT 96
[2017-01-08 06:14] VITALS: BP 138/75; PULSE 88; RESP 18; TEMP 97.9; O2SAT 98
[2017-01-08] MEDS: LOSARTAN 50 MG TAB PO SCH (09:47)
[2017-01-08] MEDS: CYANOCOBALAMIN 100 MCG TAB PO SCH (09:47)
[2017-01-08] MEDS: CHOLECALCIFEROL (VIT D3) 1000 UNIT TAB PO SCH (09:48)
[2017-01-08] MEDS: busPIRone HCL 5 MG TAB PO SCH ×2 (09:48→22:00)
[2017-01-08] MEDS: PRAVASTATIN SOD 20 MG TAB PO SCH (09:48)
[2017-01-08] MEDS: ASPIRIN EC 81 MG TABEC PO SCH (09:48)
[2017-01-08] MEDS: METOPROLOL SUCCINATE 25 MG EXTENDED RELEASE TAB PO SCH (09:48)
[2017-01-08] MEDS: QUEtiapine FUMARATE 25 MG TAB PO SCH ×3 (09:49→22:00)
--- NOTE | 2017-01-08 14:20 | HHI.PYPN ---
Subjective Remarks Patient seen in day room with nurse Sandra, patient continues confused disoriented demented, though no recent behavioral problems. Compliant medications for now continue treatment Review of Systems Except as stated in HPI: all other systems reviewed are Neg Objective Alert: Yes [place]: Person Mood: Calm Affect: Flat Memory Intact: Comment (impaired) Hallucinations: Other (none) Delusions: Yes Delusion Type: Paranoid Suicidal: Ideation (unable to determine) Homicidal: Ideation (unable to determine) Insight/Judgment Poor Vitals/IOs Vital Signs Date Time Temp Pulse Resp B/P Pulse Ox O2 Delivery O2 Flow Rate FiO2 01/08/17 06:14 97.9 88 18 138/75 98 Intake and Output 01/07/17 01/07/17 01/08/17 08:00 16:00 00:00 Intake Total 120 ml 1440 ml Balance 120 ml 1440 ml Assessment & Plan Problem List: (1) Dementia of Alzheimer's type with behavioral disturbance ICD Code: G30.8 Assessment & Plan Estimated LOS: days patient continues confused and demented, but no behavioral problems. For now continue treatment Justification for Cont. Inpt. At this time patient will decompensate if placed in a lower level of care Discharge Planning To be determined Request HC Surrog/Guard Advoc?: Yes Problem Qualifiers (1) Dementia of Alzheimer's type with behavioral disturbance: Qualified Code: G30.8 - Alzheimer's dementia with behavioral disturbance, unspecified timing of dementia onset Bharath Espinal MD Jan 08, 2017 14:20
[2017-01-08 18:06] VITALS: BP 152/81; PULSE 81; RESP 18; TEMP 97.3; O2SAT 97
[2017-01-09 05:54] VITALS: BP 110/63; PULSE 62; RESP 17; TEMP 98; O2SAT 98
[2017-01-09] MEDS: QUEtiapine FUMARATE 25 MG TAB PO SCH ×3 (09:00→21:41)
[2017-01-09] MEDS: LOSARTAN 50 MG TAB PO SCH (09:00)
[2017-01-09] MEDS: busPIRone HCL 5 MG TAB PO SCH ×2 (09:00→21:41)
[2017-01-09] MEDS: ASPIRIN EC 81 MG TABEC PO SCH (09:00)
[2017-01-09] MEDS: CYANOCOBALAMIN 100 MCG TAB PO SCH (09:00)
[2017-01-09] MEDS: PRAVASTATIN SOD 20 MG TAB PO SCH (09:00)
[2017-01-09] MEDS: CHOLECALCIFEROL (VIT D3) 1000 UNIT TAB PO SCH (09:00)
[2017-01-09] MEDS: METOPROLOL SUCCINATE 25 MG EXTENDED RELEASE TAB PO SCH (09:00)
--- NOTE | 2017-01-09 13:20 | HHI.PYPN ---
Subjective Remarks Patient was seen and case discussed with nursing. Patient's behavior is well- controlled. He has not had any outbursts or verbal aggression. No longer eating Styrofoam plates. His compliant with his medications. He is alert and oriented 1 and appears internally stimulated. Objective Alert: Yes [place]: Person Mood: Calm Affect: Blunted Memory Intact: Comment (impaired) Hallucinations: Other (none) Delusions: Yes Delusion Type: Paranoid Suicidal: Ideation (unable to determine) Homicidal: Ideation (unable to determine) Insight/Judgment Poor Vitals/IOs Vital Signs Date Time Temp Pulse Resp B/P Pulse Ox O2 Delivery O2 Flow Rate FiO2 01/09/17 05:54 98.0 62 17 110/63 98 Intake and Output 01/08/17 01/08/17 01/09/17 08:00 16:00 00:00 Intake Total 1200 ml 720 ml Balance 1200 ml 720 ml Assessment & Plan Problem List: (1) Dementia of Alzheimer's type with behavioral disturbance ICD Code: G30.8 Assessment & Plan Continue current treatment plan Justification for Cont. Inpt. Patient will decompensate in a less restrictive setting Request HC Surrog/Guard Advoc?: Yes Problem Qualifiers (1) Dementia of Alzheimer's type with behavioral disturbance: Qualified Code: G30.8 - Alzheimer's dementia with behavioral disturbance, unspecified timing of dementia onset Omkar Lazcano DO Jan 09, 2017 13:20
[2017-01-09 18:12] VITALS: BP 146/81; PULSE 77; RESP 18; TEMP 97.8; O2SAT 98
[2017-01-10 06:42] VITALS: BP 143/84; PULSE 71; RESP 16; TEMP 97.6; O2SAT 97
[2017-01-10] MEDS: ASPIRIN EC 81 MG TABEC PO SCH (08:02)
[2017-01-10] MEDS: PRAVASTATIN SOD 20 MG TAB PO SCH (08:02)
[2017-01-10] MEDS: LOSARTAN 50 MG TAB PO SCH (08:02)
[2017-01-10] MEDS: busPIRone HCL 5 MG TAB PO SCH ×2 (08:02→20:26)
[2017-01-10] MEDS: QUEtiapine FUMARATE 25 MG TAB PO SCH ×3 (08:02→20:29)
[2017-01-10] MEDS: CHOLECALCIFEROL (VIT D3) 1000 UNIT TAB PO SCH (08:02)
[2017-01-10] MEDS: CYANOCOBALAMIN 100 MCG TAB PO SCH (08:02)
[2017-01-10] MEDS: METOPROLOL SUCCINATE 25 MG EXTENDED RELEASE TAB PO SCH (08:02)
--- NOTE | 2017-01-10 13:18 | HHI.PYPN ---
Subjective Remarks Patient was seen and case discussed with nursing. Patient is alert and oriented 1. No behavioral outbursts or labile mood noted today. Seclusive to self, internally preoccupied. Compliant with medications Objective Alert: Yes [place]: Person Mood: Calm Affect: Flat Memory Intact: Comment (impaired) Hallucinations: Other (none) Delusions: Yes Delusion Type: Paranoid Suicidal: Ideation (unable to determine) Homicidal: Ideation (unable to determine) Insight/Judgment Poor Vitals/IOs Vital Signs Date Time Temp Pulse Resp B/P Pulse Ox O2 Delivery O2 Flow Rate FiO2 01/10/17 06:42 97.6 71 16 143/84 97 Intake and Output 01/09/17 01/09/17 01/10/17 08:00 16:00 00:00 Intake Total 720 ml 840 ml Balance 720 ml 840 ml Assessment & Plan Problem List: (1) Dementia of Alzheimer's type with behavioral disturbance ICD Code: G30.8 Assessment & Plan Continue current treatment plan Justification for Cont. Inpt. Pt would decompensate in a less restrictive setting Request HC Surrog/Guard Advoc?: Yes Problem Qualifiers (1) Dementia of Alzheimer's type with behavioral disturbance: Qualified Code: G30.8 - Alzheimer's dementia with behavioral disturbance, unspecified timing of dementia onset Omkar Lazcano DO Jan 10, 2017 13:18
[2017-01-10] MEDS: hydrOXYzine HCL 50 MG TAB PO PRN (15:42)
[2017-01-10 18:00] VITALS: BP 119/65; PULSE 85; RESP 16; O2SAT 99
[2017-01-11 06:16] VITALS: BP 124/69; PULSE 70; RESP 20; TEMP 97.9; O2SAT 97
[2017-01-11] MEDS: busPIRone HCL 5 MG TAB PO SCH ×2 (08:37→20:38)
[2017-01-11] MEDS: PRAVASTATIN SOD 20 MG TAB PO SCH (08:37)
[2017-01-11] MEDS: LOSARTAN 50 MG TAB PO SCH (08:37)
[2017-01-11] MEDS: QUEtiapine FUMARATE 25 MG TAB PO SCH ×3 (08:37→20:38)
[2017-01-11] MEDS: CHOLECALCIFEROL (VIT D3) 1000 UNIT TAB PO SCH (08:38)
[2017-01-11] MEDS: ASPIRIN EC 81 MG TABEC PO SCH (08:38)
[2017-01-11] MEDS: CYANOCOBALAMIN 100 MCG TAB PO SCH (08:38)
[2017-01-11] MEDS: METOPROLOL SUCCINATE 25 MG EXTENDED RELEASE TAB PO SCH (08:38)
--- NOTE | 2017-01-11 10:58 | PD.TTN ---
Present for Treatment Team Treatment Team Staff: Provider (Dr. Espinal), Nurse (Juan Alberto), Psych Therapist ( Madyson Stanford), Occupational Therapist (Melia) Patient Problems 1. Discharge planning 2. Medication compliance 3. Knowledge deficit 4. Lack of coping skills Progress Toward Goals Provider Input: Dr. Espinal inquired regarding the status of this patient's placement. Nurse Input: Juan Alberto reported the patient remains compliant with medications, treatment, and in fairly good behavioral control. Psych Therapist Input: Counselor reported the patient continues to be a placement issue as a result of his aggressive behaviors. Patient lacks insight into his mental illness, and is oriented to person only. Occupational Therapist Input: Melia reported the patient does not participate in unit activities. Documentation Scribe: HAKEEM Fishman Date Resolved: Jan 11, 2017 Madyson Stanford Jan 11, 2017 10:58
--- NOTE | 2017-01-11 16:50 | HHI.PYPN ---
Subjective Remarks Patient seen in dayroom with medical student Arias, chart review, patient compliant medications. Patient continues diffusely confused and disoriented in time is doing a little bit obstreperous but overall no behavior problems. For now continue treatment Review of Systems Except as stated in HPI: all other systems reviewed are Neg Objective Alert: Yes [place]: Person Mood: Calm Affect: Flat Memory Intact: Comment (impaired) Hallucinations: Other (none) Delusions: Yes Delusion Type: Paranoid Suicidal: Ideation (unable to determine) Homicidal: Ideation (unable to determine) Insight/Judgment Very poor Vitals/IOs Vital Signs Date Time Temp Pulse Resp B/P Pulse Ox O2 Delivery O2 Flow Rate FiO2 01/11/17 06:16 97.9 70 20 124/69 97 Intake and Output 01/10/17 01/10/17 01/11/17 08:00 16:00 00:00 Intake Total 1320 ml Output Total 2 ml Balance 1318 ml Assessment & Plan Problem List: (1) Dementia of Alzheimer's type with behavioral disturbance ICD Code: G30.8 Assessment & Plan Estimated LOS: days patient continues significant demented and confused, though no significant behavioral problems. Justification for Cont. Inpt. At this time patient decompensate if placed on the lower level of care Discharge Planning To be determined Request HC Surrog/Guard Advoc?: Yes Problem Qualifiers (1) Dementia of Alzheimer's type with behavioral disturbance: Qualified Code: G30.8 - Alzheimer's dementia with behavioral disturbance, unspecified timing of dementia onset Bharath Espinal MD Jan 11, 2017 16:50
[2017-01-11 19:00] VITALS: BP 136/75; PULSE 66; RESP 15; O2SAT 98
[2017-01-12 06:00] VITALS: BP 139/81; PULSE 63; RESP 18; TEMP 97.2
[2017-01-12] MEDS: QUEtiapine FUMARATE 25 MG TAB PO SCH ×3 (08:00→20:58)
[2017-01-12] MEDS: CYANOCOBALAMIN 100 MCG TAB PO SCH (08:22)
[2017-01-12] MEDS: busPIRone HCL 5 MG TAB PO SCH ×2 (08:22→20:58)
[2017-01-12] MEDS: PRAVASTATIN SOD 20 MG TAB PO SCH (08:23)
[2017-01-12] MEDS: LOSARTAN 50 MG TAB PO SCH (08:23)
[2017-01-12] MEDS: METOPROLOL SUCCINATE 25 MG EXTENDED RELEASE TAB PO SCH (08:23)
[2017-01-12] MEDS: ASPIRIN EC 81 MG TABEC PO SCH (08:23)
[2017-01-12] MEDS: CHOLECALCIFEROL (VIT D3) 1000 UNIT TAB PO SCH (08:23)
--- NOTE | 2017-01-12 14:50 | HHI.PYPN ---
Subjective Remarks Patient seen in day room with nurse Juan Alberto and medical student Arias, chart reviewed. Patient continues confused disoriented demented, no significant behavior problems noted at this time. For now continue treatment Review of Systems Except as stated in HPI: all other systems reviewed are Neg Objective Alert: Yes [place]: Person Mood: Calm Affect: Flat Memory Intact: Comment (impaired) Hallucinations: Other (none) Delusions: Yes Delusion Type: Paranoid Suicidal: Ideation (unable to determine) Homicidal: Ideation (unable to determine) Insight/Judgment Very poor Vitals/IOs Vital Signs Date Time Temp Pulse Resp B/P Pulse Ox O2 Delivery O2 Flow Rate FiO2 01/12/17 06:00 97.2 63 18 139/81 01/11/17 19:00 98 Intake and Output 01/11/17 01/11/17 01/12/17 08:00 16:00 00:00 Intake Total 720 ml Balance 720 ml Assessment & Plan Problem List: (1) Dementia of Alzheimer's type with behavioral disturbance ICD Code: G30.8 Assessment & Plan Estimated LOS: days patient continues diffusely confused disoriented no behavior problem now continue treatment Justification for Cont. Inpt. At this time patient will decompensate with placed a lower level of care Discharge Planning To be determined Request HC Surrog/Guard Advoc?: Yes Problem Qualifiers (1) Dementia of Alzheimer's type with behavioral disturbance: Qualified Code: G30.8 - Alzheimer's dementia with behavioral disturbance, unspecified timing of dementia onset Bharath Espinal MD Jan 12, 2017 14:50
[2017-01-12 19:44] VITALS: BP 136/81; PULSE 83; RESP 18; TEMP 96.9
[2017-01-13 05:55] VITALS: BP 119/64; PULSE 67; RESP 18; TEMP 98.5
[2017-01-13] MEDS: QUEtiapine FUMARATE 25 MG TAB PO SCH ×3 (08:30→21:16)
[2017-01-13] MEDS: CYANOCOBALAMIN 100 MCG TAB PO SCH (09:00)
[2017-01-13] MEDS: METOPROLOL SUCCINATE 25 MG EXTENDED RELEASE TAB PO SCH (09:00)
[2017-01-13] MEDS: busPIRone HCL 5 MG TAB PO SCH ×2 (09:00→21:16)
[2017-01-13] MEDS: CHOLECALCIFEROL (VIT D3) 1000 UNIT TAB PO SCH (09:00)
[2017-01-13] MEDS: PRAVASTATIN SOD 20 MG TAB PO SCH (09:00)
[2017-01-13] MEDS: ASPIRIN EC 81 MG TABEC PO SCH (09:00)
[2017-01-13] MEDS: LOSARTAN 50 MG TAB PO SCH (09:00)
--- NOTE | 2017-01-13 16:03 | HHI.PYPN ---
Subjective Remarks Patient seen in day room sitting in Saranya chair, with nurse Shanice, chart reviewed, patient compliant medication. Patient remains confused and demented, though no behavioral problems noted. For now continue treatment Review of Systems Except as stated in HPI: all other systems reviewed are Neg Objective Alert: Yes [place]: Person Mood: Calm Affect: Flat Memory Intact: Comment (impaired) Hallucinations: Other (none) Delusions: Yes Delusion Type: Paranoid Suicidal: Ideation (unable to determine) Homicidal: Ideation (unable to determine) Insight/Judgment Very poor Vitals/IOs Vital Signs Date Time Temp Pulse Resp B/P Pulse Ox O2 Delivery O2 Flow Rate FiO2 01/13/17 05:55 98.5 67 18 119/64 01/11/17 19:00 98 Assessment & Plan Problem List: (1) Dementia of Alzheimer's type with behavioral disturbance ICD Code: G30.8 Assessment & Plan Estimated LOS: days patient continues demented and confused, no significant behavioral problems. For now continue treatment Justification for Cont. Inpt. At this time patient will decompensate the placed a lower level of care Discharge Planning To be determined Request HC Surrog/Guard Advoc?: Yes Problem Qualifiers (1) Dementia of Alzheimer's type with behavioral disturbance: Qualified Code: G30.8 - Alzheimer's dementia with behavioral disturbance, unspecified timing of dementia onset Bharath Espinal MD Jan 13, 2017 16:03
[2017-01-13 21:13] VITALS: BP 120/65; PULSE 75
[2017-01-13] MEDS: diphenhydrAMINE HCL 50 MG CAP PO PRN (21:16)
[2017-01-14 05:11] VITALS: BP 117/57; PULSE 71; RESP 18; TEMP 98.3
[2017-01-14] MEDS: QUEtiapine FUMARATE 25 MG TAB PO SCH ×3 (08:00→20:25)
[2017-01-14] MEDS: CYANOCOBALAMIN 100 MCG TAB PO SCH (09:00)
[2017-01-14] MEDS: METOPROLOL SUCCINATE 25 MG EXTENDED RELEASE TAB PO SCH (09:51)
[2017-01-14] MEDS: CHOLECALCIFEROL (VIT D3) 1000 UNIT TAB PO SCH (09:51)
[2017-01-14] MEDS: busPIRone HCL 5 MG TAB PO SCH ×2 (09:51→20:25)
[2017-01-14] MEDS: ASPIRIN EC 81 MG TABEC PO SCH (09:51)
[2017-01-14] MEDS: PRAVASTATIN SOD 20 MG TAB PO SCH (09:51)
[2017-01-14] MEDS: LOSARTAN 50 MG TAB PO SCH (09:51)
--- NOTE | 2017-01-14 11:00 | HHI.PYPN ---
Subjective Remarks Patient seen in dayroom with nurse Sheela medical student Arias, chart review , patient compliant medication. Patient alert though continues diffusely confused, though no significant behavioral problems. For now continue treatment Review of Systems Except as stated in HPI: all other systems reviewed are Neg Objective Alert: Yes [place]: Person Mood: Calm Affect: Flat Memory Intact: Comment (impaired) Hallucinations: Other (none) Delusions: Yes Delusion Type: Paranoid Suicidal: Ideation (unable to determine) Homicidal: Ideation (unable to determine) Insight/Judgment Poor Vitals/IOs Vital Signs Date Time Temp Pulse Resp B/P Pulse Ox O2 Delivery O2 Flow Rate FiO2 01/14/17 05:11 98.3 71 18 117/57 01/11/17 19:00 98 Intake and Output 01/13/17 01/13/17 01/13/17 07:59 15:59 23:59 Intake Total 840 ml 960 ml Balance 840 ml 960 ml Assessment & Plan Problem List: (1) Dementia of Alzheimer's type with behavioral disturbance ICD Code: G30.8 Assessment & Plan Estimated LOS: days patient seen in day room sitting in Saranya chair, his calm no 7 behavioral problems noted continues diffusely confused and disoriented for now continue treatment Justification for Cont. Inpt. At this time patient will decompensate with placed in a lower level of care Discharge Planning To be determined Request HC Surrog/Guard Advoc?: Yes Problem Qualifiers (1) Dementia of Alzheimer's type with behavioral disturbance: Qualified Code: G30.8 - Alzheimer's dementia with behavioral disturbance, unspecified timing of dementia onset Bharath Espinal MD Jan 14, 2017 11:00
[2017-01-14 18:00] VITALS: BP 147/88; PULSE 68; RESP 17; TEMP 97.9; O2SAT 99
[2017-01-15 06:19] VITALS: BP 114/62; PULSE 64; RESP 16; TEMP 98.3; O2SAT 96
[2017-01-15] MEDS: QUEtiapine FUMARATE 25 MG TAB PO SCH ×3 (08:00→21:32)
[2017-01-15] MEDS: PRAVASTATIN SOD 20 MG TAB PO SCH (09:00)
[2017-01-15] MEDS: busPIRone HCL 5 MG TAB PO SCH ×2 (09:39→21:32)
[2017-01-15] MEDS: CHOLECALCIFEROL (VIT D3) 1000 UNIT TAB PO SCH (09:39)
[2017-01-15] MEDS: ASPIRIN EC 81 MG TABEC PO SCH (09:39)
[2017-01-15] MEDS: CYANOCOBALAMIN 100 MCG TAB PO SCH (09:39)
[2017-01-15] MEDS: METOPROLOL SUCCINATE 25 MG EXTENDED RELEASE TAB PO SCH (09:39)
[2017-01-15] MEDS: LOSARTAN 50 MG TAB PO SCH (09:40)
--- NOTE | 2017-01-15 10:43 | HHI.PYPN ---
Subjective Remarks Patient seen in day room with nurse Momo and medical student Arias, chart review, patient compliant medication. He should alert diffusely confused disoriented though no significant behavioral problems. For now continue treatment Review of Systems Except as stated in HPI: all other systems reviewed are Neg Objective Alert: Yes [place]: Person Mood: Calm Affect: Flat Memory Intact: Comment (impaired) Hallucinations: Other (none) Delusions: Yes Delusion Type: Paranoid Suicidal: Ideation (unable to determine) Homicidal: Ideation (unable to determine) Insight/Judgment Very poor Vitals/IOs Vital Signs Date Time Temp Pulse Resp B/P Pulse Ox O2 Delivery O2 Flow Rate FiO2 01/15/17 06:19 98.3 64 16 114/62 96 Intake and Output 01/14/17 01/14/17 01/15/17 08:00 16:00 00:00 Intake Total 1080 ml 600 ml Balance 1080 ml 600 ml Assessment & Plan Problem List: (1) Dementia of Alzheimer's type with behavioral disturbance ICD Code: G30.8 Assessment & Plan Estimated LOS: days patient continues confused and demented, compliant medication, no significant pain or problems noted. Justification for Cont. Inpt. At this time patient will decompensate if placed in a lower level of care Discharge Planning To be determined Request HC Surrog/Guard Advoc?: Yes Problem Qualifiers (1) Dementia of Alzheimer's type with behavioral disturbance: Qualified Code: G30.8 - Alzheimer's dementia with behavioral disturbance, unspecified timing of dementia onset Bharath Espinal MD Jan 15, 2017 10:43
[2017-01-15 18:28] VITALS: BP 123/72; PULSE 76; RESP 17; TEMP 98.4; O2SAT 97
[2017-01-16 06:00] VITALS: BP_SYST 123; BP_SYST 135; BP_DIAS 63; BP_DIAS 72; PULSE 68; PULSE 76; RESP 16; RESP 17; TEMP 97.4; TEMP 98.4; O2SAT 97
[2017-01-16] MEDS: ASPIRIN EC 81 MG TABEC PO SCH (11:29)
[2017-01-16] MEDS: QUEtiapine FUMARATE 25 MG TAB PO SCH ×3 (11:31→21:19)
[2017-01-16] MEDS: LOSARTAN 50 MG TAB PO SCH (11:31)
[2017-01-16] MEDS: busPIRone HCL 5 MG TAB PO SCH ×2 (11:31→21:17)
[2017-01-16] MEDS: METOPROLOL SUCCINATE 25 MG EXTENDED RELEASE TAB PO SCH (11:31)
[2017-01-16] MEDS: CHOLECALCIFEROL (VIT D3) 1000 UNIT TAB PO SCH (11:31)
[2017-01-16] MEDS: CYANOCOBALAMIN 100 MCG TAB PO SCH (11:31)
[2017-01-16] MEDS: PRAVASTATIN SOD 20 MG TAB PO SCH (11:31)
[2017-01-16] MEDS: ACETAMINOPHEN 325 MG TAB PO PRN (12:01)
--- NOTE | 2017-01-16 12:51 | HHI.PYPN ---
Subjective Remarks Pt seen and discussed with staff. He has been intermittently resistant and combative during care today. Compliant with medications. He states that MD has been fired. No SI/HI Objective Alert: Yes [place]: Person Mood: Calm Affect: Restricted Memory Intact: Comment (impaired) Hallucinations: Other (none) Delusions: Yes Delusion Type: Paranoid Suicidal: Ideation (denies) Homicidal: Ideation (denies) Insight/Judgment poor Vitals/IOs Vital Signs Date Time Temp Pulse Resp B/P Pulse Ox O2 Delivery O2 Flow Rate FiO2 01/16/17 06:00 97.4 68 16 135/63 97 Intake and Output 01/15/17 01/15/17 01/16/17 08:00 16:00 00:00 Intake Total 480 ml 3440 ml Balance 480 ml 3440 ml Assessment & Plan Problem List: (1) Dementia of Alzheimer's type with behavioral disturbance ICD Code: G30.8 Assessment & Plan Continue current tx plan. Estimated LOS: days Justification for Cont. Inpt. risk of decompensation Request HC Surrog/Guard Advoc?: Yes Problem Qualifiers (1) Dementia of Alzheimer's type with behavioral disturbance: Qualified Code: G30.8 - Alzheimer's dementia with behavioral disturbance, unspecified timing of dementia onset Ramona Garcia MD Jan 16, 2017 12:51
[2017-01-16 18:00] VITALS: BP 123/69; PULSE 70; TEMP 97.8; O2SAT 99
[2017-01-17 05:39] VITALS: BP 122/60; PULSE 63; RESP 18; TEMP 97.4
[2017-01-17] MEDS: LOSARTAN 50 MG TAB PO SCH (09:26)
[2017-01-17] MEDS: ASPIRIN EC 81 MG TABEC PO SCH (09:26)
[2017-01-17] MEDS: QUEtiapine FUMARATE 25 MG TAB PO SCH ×3 (09:26→21:17)
[2017-01-17] MEDS: PRAVASTATIN SOD 20 MG TAB PO SCH (09:27)
[2017-01-17] MEDS: CYANOCOBALAMIN 100 MCG TAB PO SCH (09:27)
[2017-01-17] MEDS: METOPROLOL SUCCINATE 25 MG EXTENDED RELEASE TAB PO SCH (09:27)
[2017-01-17] MEDS: busPIRone HCL 5 MG TAB PO SCH ×2 (09:27→21:17)
[2017-01-17] MEDS: CHOLECALCIFEROL (VIT D3) 1000 UNIT TAB PO SCH (09:27)
--- NOTE | 2017-01-17 11:31 | HHI.PYPN ---
Subjective Remarks Pt seen and discussed with staff. He has been less combative with care but is still impulsive and has been grabbing at staff on occasion.Spending most of morning napping in dayroom. Appetite is good. Cooperative with medications. No SI/HI Objective Alert: Yes [place]: Person Mood: Calm Affect: Restricted Memory Intact: Comment (impaired) Hallucinations: Other (none) Delusions: No Delusion Type: Other (none elicited) Suicidal: Ideation (denies) Homicidal: Ideation (denies) Insight/Judgment poor Vitals/IOs Vital Signs Date Time Temp Pulse Resp B/P Pulse Ox O2 Delivery O2 Flow Rate FiO2 01/17/17 05:39 97.4 63 18 122/60 01/16/17 18:00 99 Intake and Output 01/16/17 01/16/17 01/17/17 08:00 16:00 00:00 Intake Total 360 ml 360 ml 960 ml Balance 360 ml 360 ml 960 ml Assessment & Plan Problem List: (1) Dementia of Alzheimer's type with behavioral disturbance ICD Code: G30.8 Assessment & Plan Continue current tx plan Estimated LOS: days Justification for Cont. Inpt. risk of decompensation Request HC Surrog/Guard Advoc?: Yes Problem Qualifiers (1) Dementia of Alzheimer's type with behavioral disturbance: Qualified Code: G30.8 - Alzheimer's dementia with behavioral disturbance, unspecified timing of dementia onset aRmona Garcia MD Jan 17, 2017 11:30
[2017-01-17] MEDS: LORazepam 2 MG/ML VIAL IM PRN (17:33)
[2017-01-18 05:30] VITALS: BP 137/75; PULSE 69; RESP 16; TEMP 98.2; O2SAT 96
[2017-01-18] MEDS: QUEtiapine FUMARATE 25 MG TAB PO SCH ×4 (08:00→21:04)
--- NOTE | 2017-01-18 08:52 | HHI.PYPN ---
Subjective Remarks Patient seen in day room with nurse Tiffany chart review, patient compliant medication. This continues confused demented, at times somewhat mildly irritable but no behavior problems. For now continue treatment Review of Systems Except as stated in HPI: all other systems reviewed are Neg Objective Alert: Yes [place]: Person Mood: Calm Affect: Restricted Memory Intact: Comment (impaired) Hallucinations: Other (none) Delusions: No Delusion Type: Other (none elicited) Suicidal: Ideation (denies) Homicidal: Ideation (denies) Insight/Judgment Poor Vitals/IOs Vital Signs Date Time Temp Pulse Resp B/P Pulse Ox O2 Delivery O2 Flow Rate FiO2 01/18/17 05:30 98.2 69 16 137/75 96 Intake and Output 01/17/17 01/17/17 01/18/17 08:00 16:00 00:00 Intake Total 720 ml 960 ml Balance 720 ml 960 ml Assessment & Plan Problem List: (1) Dementia of Alzheimer's type with behavioral disturbance ICD Code: G30.8 Assessment & Plan Patient continues confused and demented, though no significant behavioral problems Estimated LOS: days Justification for Cont. Inpt. At this time patient will decompensate with placed in a lower level of care Discharge Planning To be determined Request HC Surrog/Guard Advoc?: Yes Problem Qualifiers (1) Dementia of Alzheimer's type with behavioral disturbance: Qualified Code: G30.8 - Alzheimer's dementia with behavioral disturbance, unspecified timing of dementia onset Bharath Espinal MD Jan 18, 2017 08:52
[2017-01-18] MEDS: METOPROLOL SUCCINATE 25 MG EXTENDED RELEASE TAB PO SCH (09:08)
[2017-01-18] MEDS: CHOLECALCIFEROL (VIT D3) 1000 UNIT TAB PO SCH (09:08)
[2017-01-18] MEDS: PRAVASTATIN SOD 20 MG TAB PO SCH (09:08)
[2017-01-18] MEDS: busPIRone HCL 5 MG TAB PO SCH ×3 (09:09→21:04)
[2017-01-18] MEDS: LOSARTAN 50 MG TAB PO SCH (09:09)
[2017-01-18] MEDS: ASPIRIN EC 81 MG TABEC PO SCH (09:09)
[2017-01-18] MEDS: CYANOCOBALAMIN 100 MCG TAB PO SCH (09:10)
--- NOTE | 2017-01-18 11:52 | PD.TTN ---
Present for Treatment Team Treatment Team Staff: Provider (Dr. Bai), Psych Therapist (Madyson Stanford), Occupational Therapist (Jim) Patient Problems 1. Discharge planning 2. Medication compliance 3. Knowledge deficit 4. Lack of coping skills Progress Toward Goals Provider Input: Dr. bai reported the patient's mental status remains unchanged. Psych Therapist Input: Counselor reproted the patient remains a difficult placement based on patient's previous behaviors at his SNF. Occupational Therapist Input: Jim reported the patient is not attemding therapeutic groups or activities. Documentation Scribe: HAKEEM Fishman Date Resolved: Jan 18, 2017 Madyson StanfordKris Jan 18, 2017 11:52
[2017-01-18] MEDS: HALOPERIDOL LACTATE 5 MG/ML AMP IM PRN (17:47)
[2017-01-18 18:00] VITALS: BP 133/78; PULSE 86; RESP 20
[2017-01-18 22:31] VITALS: BP 111/66; PULSE 64; RESP 20; TEMP 97.4; O2SAT 98
[2017-01-19 06:00] VITALS: BP 151/71; PULSE 71; RESP 17; O2SAT 95
[2017-01-19] MEDS: QUEtiapine FUMARATE 25 MG TAB PO SCH ×3 (08:00→21:14)
[2017-01-19] MEDS: CYANOCOBALAMIN 100 MCG TAB PO SCH (09:00)
[2017-01-19] MEDS: LOSARTAN 50 MG TAB PO SCH (09:00)
[2017-01-19] MEDS: CHOLECALCIFEROL (VIT D3) 1000 UNIT TAB PO SCH (09:00)
[2017-01-19] MEDS: ASPIRIN EC 81 MG TABEC PO SCH (09:00)
[2017-01-19] MEDS: PRAVASTATIN SOD 20 MG TAB PO SCH (09:00)
[2017-01-19] MEDS: METOPROLOL SUCCINATE 25 MG EXTENDED RELEASE TAB PO SCH (09:00)
[2017-01-19] MEDS: busPIRone HCL 5 MG TAB PO SCH ×2 (09:00→21:14)
--- NOTE | 2017-01-19 12:57 | HHI.PYPN ---
Subjective Remarks Patient seen in day room with medical student Arias, patient seen in Saranya chair, chart review, patient compliant medication. Patient continues calm no diffusely confused all 4 spheres Review of Systems Except as stated in HPI: all other systems reviewed are Neg Objective Alert: Yes [place]: Person Mood: Calm Affect: Restricted Memory Intact: Comment (impaired) Hallucinations: Other (none) Delusions: No Delusion Type: Other (none elicited) Suicidal: Ideation (denies) Homicidal: Ideation (denies) Insight/Judgment Very poor Vitals/IOs Vital Signs Date Time Temp Pulse Resp B/P Pulse Ox O2 Delivery O2 Flow Rate FiO2 01/19/17 06:00 71 17 151/71 95 01/18/17 22:31 97.4 Intake and Output 01/18/17 01/18/17 01/19/17 08:00 16:00 00:00 Intake Total 0 ml 1080 ml 2160 ml Output Total 4 ml Balance 0 ml 1080 ml 2156 ml Assessment & Plan Problem List: (1) Dementia of Alzheimer's type with behavioral disturbance ICD Code: G30.8 Assessment & Plan Estimated LOS: days patient continues demented and confused, though no significant behavioral problems. For now continue treatment Justification for Cont. Inpt. At this time patient will decompensate as to the lower level of care Discharge Planning To be determined Request HC Surrog/Guard Advoc?: Yes Problem Qualifiers (1) Dementia of Alzheimer's type with behavioral disturbance: Qualified Code: G30.8 - Alzheimer's dementia with behavioral disturbance, unspecified timing of dementia onset Bharath Espinal MD Jan 19, 2017 12:57
[2017-01-19 17:43] VITALS: BP 128/84; PULSE 82; RESP 16; O2SAT 95
[2017-01-19] MEDS: MELATONIN 5 MG TAB PO PRN (23:58)
[2017-01-20 06:25] VITALS: BP 140/78; PULSE 65; RESP 17; TEMP 96.4; O2SAT 95
[2017-01-20] MEDS: QUEtiapine FUMARATE 25 MG TAB PO SCH ×3 (08:00→20:00)
[2017-01-20] MEDS: CHOLECALCIFEROL (VIT D3) 1000 UNIT TAB PO SCH (09:00)
[2017-01-20] MEDS: CYANOCOBALAMIN 100 MCG TAB PO SCH (09:00)
[2017-01-20] MEDS: busPIRone HCL 5 MG TAB PO SCH ×2 (09:00→21:00)
[2017-01-20] MEDS: LOSARTAN 50 MG TAB PO SCH (09:00)
[2017-01-20] MEDS: METOPROLOL SUCCINATE 25 MG EXTENDED RELEASE TAB PO SCH (09:00)
[2017-01-20] MEDS: ASPIRIN EC 81 MG TABEC PO SCH (09:00)
[2017-01-20] MEDS: PRAVASTATIN SOD 20 MG TAB PO SCH (09:00)
--- NOTE | 2017-01-20 10:49 | HHI.PYPN ---
Subjective Remarks Patient seen in day room with nurse Shanice, chart reviewed, patient compliant medication. Patient continues confused demented at this time no significant behavioral problems. Compliant medications. Review of Systems Except as stated in HPI: all other systems reviewed are Neg Objective Alert: Yes [place]: Person Mood: Calm Affect: Restricted Memory Intact: Comment (impaired) Hallucinations: Other (none) Delusions: No Delusion Type: Other (none elicited) Suicidal: Ideation (denies) Homicidal: Ideation (denies) Insight/Judgment Poor Vitals/IOs Vital Signs Date Time Temp Pulse Resp B/P Pulse Ox O2 Delivery O2 Flow Rate FiO2 01/20/17 06:25 96.4 65 17 140/78 95 Intake and Output 01/19/17 01/19/17 01/20/17 08:00 16:00 00:00 Intake Total 960 ml 1950 ml Balance 960 ml 1950 ml Assessment & Plan Problem List: (1) Dementia of Alzheimer's type with behavioral disturbance ICD Code: G30.8 Assessment & Plan Estimated LOS: days patient continues demented confused though no behavior problems at the present time. Justification for Cont. Inpt. At this time patient decompensate and placed a lower level of care Discharge Planning To be determined Request HC Surrog/Guard Advoc?: Yes Problem Qualifiers (1) Dementia of Alzheimer's type with behavioral disturbance: Qualified Code: G30.8 - Alzheimer's dementia with behavioral disturbance, unspecified timing of dementia onset Bharath Espinal MD Jan 20, 2017 10:49
[2017-01-20 18:00] VITALS: BP 142/75; PULSE 86; RESP 19; TEMP 92.7; O2SAT 96
[2017-01-21 06:03] VITALS: BP 122/62; PULSE 63; RESP 18; TEMP 98.2; O2SAT 96
[2017-01-21] MEDS: QUEtiapine FUMARATE 25 MG TAB PO SCH ×3 (08:00→20:00)
[2017-01-21] MEDS: CYANOCOBALAMIN 100 MCG TAB PO SCH (09:00)
[2017-01-21] MEDS: busPIRone HCL 5 MG TAB PO SCH ×2 (09:00→20:52)
[2017-01-21] MEDS: LOSARTAN 50 MG TAB PO SCH (09:00)
[2017-01-21] MEDS: ASPIRIN EC 81 MG TABEC PO SCH (09:00)
[2017-01-21] MEDS: METOPROLOL SUCCINATE 25 MG EXTENDED RELEASE TAB PO SCH (09:00)
[2017-01-21] MEDS: CHOLECALCIFEROL (VIT D3) 1000 UNIT TAB PO SCH (09:00)
[2017-01-21] MEDS: PRAVASTATIN SOD 20 MG TAB PO SCH (09:00)
--- NOTE | 2017-01-21 10:02 | HHI.PYPN ---
Subjective Remarks Patient seen in dayroom with medical student Arias, chart reviewed, patient compliant medications. She continues no significant behavioral problems continues markedly confused disoriented though redirectable. For now continue treatment Review of Systems Except as stated in HPI: all other systems reviewed are Neg Objective Alert: Yes [place]: Person Mood: Calm Affect: Restricted Memory Intact: Comment (impaired) Hallucinations: Other (none) Delusions: No Delusion Type: Other (none elicited) Suicidal: Ideation (denies) Homicidal: Ideation (denies) Insight/Judgment Very poor Vitals/IOs Vital Signs Date Time Temp Pulse Resp B/P Pulse Ox O2 Delivery O2 Flow Rate FiO2 01/21/17 06:03 98.2 63 18 122/62 96 Intake and Output 01/20/17 01/20/17 01/21/17 08:00 16:00 00:00 Intake Total 360 ml 240 ml 960 ml Output Total 111 ml Balance 249 ml 240 ml 960 ml Assessment & Plan Problem List: (1) Dementia of Alzheimer's type with behavioral disturbance ICD Code: G30.8 Assessment & Plan Estimated LOS: days patient continues confused and demented, though most significant behavioral problems. Compliant medication Justification for Cont. Inpt. At this time patient will decompensate if placed in a lower level of care Discharge Planning To be determined Request HC Surrog/Guard Advoc?: Yes Problem Qualifiers (1) Dementia of Alzheimer's type with behavioral disturbance: Qualified Code: G30.8 - Alzheimer's dementia with behavioral disturbance, unspecified timing of dementia onset Bharath Espinal MD Jan 21, 2017 10:02
[2017-01-21 20:47] VITALS: BP 138/73; PULSE 69; RESP 18; TEMP 98.6; O2SAT 99
[2017-01-22 06:05] VITALS: BP 132/68; PULSE 72; RESP 17; TEMP 97.3; O2SAT 97
[2017-01-22] MEDS: QUEtiapine FUMARATE 25 MG TAB PO SCH ×3 (08:00→20:00)
[2017-01-22] MEDS: CYANOCOBALAMIN 100 MCG TAB PO SCH (08:37)
[2017-01-22] MEDS: CHOLECALCIFEROL (VIT D3) 1000 UNIT TAB PO SCH (08:37)
[2017-01-22] MEDS: ASPIRIN EC 81 MG TABEC PO SCH (08:37)
[2017-01-22] MEDS: LOSARTAN 50 MG TAB PO SCH (08:37)
[2017-01-22] MEDS: PRAVASTATIN SOD 20 MG TAB PO SCH (08:37)
[2017-01-22] MEDS: busPIRone HCL 5 MG TAB PO SCH ×2 (08:37→22:01)
[2017-01-22] MEDS: METOPROLOL SUCCINATE 25 MG EXTENDED RELEASE TAB PO SCH (08:37)
--- NOTE | 2017-01-22 11:08 | HHI.PYPN ---
Subjective Remarks Patient seen in day room with nurse Juan Alberto and medical student Arias, chart review, patient compliant medication. Patient continues confused demented, times showing some mild irritability but overall no significant behavioral problems Review of Systems Except as stated in HPI: all other systems reviewed are Neg Objective Alert: Yes [place]: Person Mood: Calm Affect: Restricted Memory Intact: Comment (impaired) Hallucinations: Other (none) Delusions: No Delusion Type: Other (none elicited) Suicidal: Ideation (denies) Homicidal: Ideation (denies) Insight/Judgment Very poor Vitals/IOs Vital Signs Date Time Temp Pulse Resp B/P Pulse Ox O2 Delivery O2 Flow Rate FiO2 01/22/17 06:05 97.3 72 17 132/68 97 Intake and Output 01/21/17 01/21/17 01/22/17 08:00 16:00 00:00 Intake Total 240 ml 240 ml 600 ml Balance 240 ml 240 ml 600 ml Assessment & Plan Problem List: (1) Dementia of Alzheimer's type with behavioral disturbance ICD Code: G30.8 Assessment & Plan Estimated LOS: days patient is demented and confused though no significant behavioral problems. For now continue treatment Justification for Cont. Inpt. At this time patient decompensate if placed in a lower level of care Discharge Planning To be determined Request HC Surrog/Guard Advoc?: Yes Problem Qualifiers (1) Dementia of Alzheimer's type with behavioral disturbance: Qualified Code: G30.8 - Alzheimer's dementia with behavioral disturbance, unspecified timing of dementia onset Bharath Espinal MD Jan 22, 2017 11:08
[2017-01-22 17:51] VITALS: BP 112/66; PULSE 89; RESP 16; TEMP 97.8; O2SAT 95
[2017-01-23] MEDS: QUEtiapine FUMARATE 25 MG TAB PO SCH ×3 (08:00→19:56)
[2017-01-23 09:06] VITALS: BP 103/59; PULSE 65; RESP 18; O2SAT 99
[2017-01-23] MEDS: PRAVASTATIN SOD 20 MG TAB PO SCH (10:32)
[2017-01-23] MEDS: busPIRone HCL 5 MG TAB PO SCH ×2 (10:32→19:57)
[2017-01-23] MEDS: LOSARTAN 50 MG TAB PO SCH (10:32)
[2017-01-23] MEDS: ASPIRIN EC 81 MG TABEC PO SCH (10:32)
[2017-01-23] MEDS: METOPROLOL SUCCINATE 25 MG EXTENDED RELEASE TAB PO SCH (10:33)
[2017-01-23] MEDS: CYANOCOBALAMIN 100 MCG TAB PO SCH (10:33)
[2017-01-23] MEDS: CHOLECALCIFEROL (VIT D3) 1000 UNIT TAB PO SCH (10:33)
--- NOTE | 2017-01-23 12:10 | HHI.PYPN ---
Subjective Remarks Patient was seen and case discussed with nursing. Patient is pleasant and cooperative with exam. She is alert and oriented 1. Responding to internal stimuli pretending to eat and grabbing at things that are not there. Mood is "alright." He is eating and drinking well per nursing. Compliant with his medications Objective Alert: Yes [place]: Person Mood: Calm Affect: Blunted Memory Intact: Comment (impaired) Hallucinations: Other (none) Delusions: No Delusion Type: Other (internally stimulated) Suicidal: Ideation (denies) Homicidal: Ideation (denies) Insight/Judgment Poor Vitals/IOs Vital Signs Date Time Temp Pulse Resp B/P Pulse Ox O2 Delivery O2 Flow Rate FiO2 01/23/17 09:06 65 18 103/59 99 01/22/17 17:51 97.8 Intake and Output 01/22/17 01/22/17 01/23/17 08:00 16:00 00:00 Intake Total 3600 ml 1320 ml Balance 3600 ml 1320 ml Assessment & Plan Problem List: (1) Dementia of Alzheimer's type with behavioral disturbance ICD Code: G30.8 Assessment & Plan Continue current treatment plan Justification for Cont. Inpt. Patient will decompensate in a less restrictive setting Request HC Surrog/Guard Advoc?: Yes Problem Qualifiers (1) Dementia of Alzheimer's type with behavioral disturbance: Qualified Code: G30.8 - Alzheimer's dementia with behavioral disturbance, unspecified timing of dementia onset Omkar Lazcano DO Jan 23, 2017 12:10
[2017-01-23 18:24] VITALS: BP 139/73; PULSE 74; RESP 17; TEMP 98.1; O2SAT 97
[2017-01-24 06:13] VITALS: BP 125/73; PULSE 79; RESP 16; TEMP 97.9; O2SAT 97
[2017-01-24] MEDS: QUEtiapine FUMARATE 25 MG TAB PO SCH ×3 (08:29→21:14)
[2017-01-24] MEDS: ASPIRIN EC 81 MG TABEC PO SCH (08:29)
[2017-01-24] MEDS: PRAVASTATIN SOD 20 MG TAB PO SCH (08:29)
[2017-01-24] MEDS: busPIRone HCL 5 MG TAB PO SCH ×2 (08:29→21:14)
[2017-01-24] MEDS: METOPROLOL SUCCINATE 25 MG EXTENDED RELEASE TAB PO SCH (08:29)
[2017-01-24] MEDS: CHOLECALCIFEROL (VIT D3) 1000 UNIT TAB PO SCH (08:30)
[2017-01-24] MEDS: LOSARTAN 50 MG TAB PO SCH (08:34)
[2017-01-24] MEDS: CYANOCOBALAMIN 100 MCG TAB PO SCH (08:36)
--- NOTE | 2017-01-24 12:26 | HHI.PYPN ---
Subjective Remarks Patient was seen and case discussed with nursing. Patient is alert and oriented 1. Remains internally preoccupied picking at things in the air. Behaving well on the unit. Denies suicidal ideation intent or plan. Eating and sleeping well per nursing Objective Alert: Yes [place]: Person Mood: Calm Affect: Restricted Memory Intact: Comment (impaired) Hallucinations: Other (none) Delusions: No Delusion Type: Other (internally stimulated) Suicidal: Ideation (denies) Homicidal: Ideation (denies) Insight/Judgment Poor Vitals/IOs Vital Signs Date Time Temp Pulse Resp B/P Pulse Ox O2 Delivery O2 Flow Rate FiO2 01/24/17 06:13 97.9 79 16 125/73 97 Intake and Output 01/23/17 01/23/17 01/24/17 08:00 16:00 00:00 Intake Total 360 ml 840 ml Balance 360 ml 840 ml Assessment & Plan Problem List: (1) Dementia of Alzheimer's type with behavioral disturbance ICD Code: G30.8 Assessment & Plan Continue current treatment plan Justification for Cont. Inpt. Patient will decompensate in a less restrictive setting Request HC Surrog/Guard Advoc?: Yes Problem Qualifiers (1) Dementia of Alzheimer's type with behavioral disturbance: Qualified Code: G30.8 - Alzheimer's dementia with behavioral disturbance, unspecified timing of dementia onset Omkar Lazcano DO Jan 24, 2017 12:26
[2017-01-24 18:16] VITALS: BP 117/57; PULSE 63; RESP 18; TEMP 97.3; O2SAT 98
[2017-01-25 05:37] VITALS: BP 109/69; PULSE 61; RESP 18; TEMP 96.4; O2SAT 97
[2017-01-25] MEDS: QUEtiapine FUMARATE 25 MG TAB PO SCH ×3 (08:00→20:23)
[2017-01-25] MEDS: METOPROLOL SUCCINATE 25 MG EXTENDED RELEASE TAB PO SCH (08:21)
[2017-01-25] MEDS: PRAVASTATIN SOD 20 MG TAB PO SCH (08:21)
[2017-01-25] MEDS: CHOLECALCIFEROL (VIT D3) 1000 UNIT TAB PO SCH (08:21)
[2017-01-25] MEDS: ASPIRIN EC 81 MG TABEC PO SCH (08:21)
[2017-01-25] MEDS: busPIRone HCL 5 MG TAB PO SCH ×2 (08:21→20:23)
[2017-01-25] MEDS: LOSARTAN 50 MG TAB PO SCH (08:21)
[2017-01-25] MEDS: CYANOCOBALAMIN 100 MCG TAB PO SCH (09:00)
--- NOTE | 2017-01-25 09:41 | HHI.PYPN ---
Subjective Remarks Patient seen in the day room with nurse Juan Alberto and medical student Arias, chart review, patient compliant medications. Continues confused demented though no significant behavioral issues. For now continue treatment Review of Systems Except as stated in HPI: all other systems reviewed are Neg Objective Alert: Yes [place]: Person Mood: Calm Affect: Restricted Memory Intact: Comment (impaired) Hallucinations: Other (none) Delusions: No Delusion Type: Other (internally stimulated) Suicidal: Ideation (denies) Homicidal: Ideation (denies) Insight/Judgment Very poor Vitals/IOs Vital Signs Date Time Temp Pulse Resp B/P Pulse Ox O2 Delivery O2 Flow Rate FiO2 01/25/17 05:37 96.4 61 18 109/69 97 Intake and Output 01/24/17 01/24/17 01/25/17 08:00 16:00 00:00 Intake Total 0 ml 1680 ml Balance 0 ml 1680 ml Assessment & Plan Problem List: (1) Dementia of Alzheimer's type with behavioral disturbance ICD Code: G30.8 Assessment & Plan Estimated LOS: days patient continues confused and demented, though no significant behavioral problems. Compliant medications Justification for Cont. Inpt. At this time patient will decompensate the placed in a lower level of care Discharge Planning To be determined Request HC Surrog/Guard Advoc?: Yes Problem Qualifiers (1) Dementia of Alzheimer's type with behavioral disturbance: Qualified Code: G30.8 - Alzheimer's dementia with behavioral disturbance, unspecified timing of dementia onset Bharath Espinal MD Jan 25, 2017 09:41
--- NOTE | 2017-01-25 11:14 | PD.TTN ---
Present for Treatment Team Treatment Team Staff: Provider, Psych Therapist, Occupational Therapist Patient Problems 1. Discharge planning 2. Medication compliance 3. Knowledge deficit 4. Lack of coping skills Progress Toward Goals Provider Input: Per treating psychiatrist patient's medication adjustments continues, no major behavior issues or concerns. Psych Therapist Input: [facility] who states they are unsure if they are able to accept patient due to his previous behavior towards accepting care/treatment. Counselor will contact other facilities to initiate appropriate discharge plan. Occupational Therapist Input: Per OT staff patient lacks insight or ability to participate with unit actives. Documentation Scribe: KHAI Fontenot Sandra LMHC Jan 25, 2017 11:14
[2017-01-25 18:00] VITALS: BP 135/75; PULSE 85; RESP 17; TEMP 97.6; O2SAT 98
[2017-01-26 05:47] VITALS: BP 138/68; PULSE 63; RESP 16; O2SAT 96
--- NOTE | 2017-01-26 07:57 | HHI.PYPN ---
Subjective Remarks Patient seen in day room with nurse Juan Alberto and medical student Arias, chart reviewed, patient compliant medications. Patient continues confused demented, but no behavioral problems. For now continue treatment Review of Systems Except as stated in HPI: all other systems reviewed are Neg Objective Alert: Yes [place]: Person Mood: Calm Affect: Restricted Memory Intact: Comment (impaired) Hallucinations: Other (none) Delusions: No Delusion Type: Other (internally stimulated) Suicidal: Ideation (denies) Homicidal: Ideation (denies) Insight/Judgment Very poor Vitals/IOs Vital Signs Date Time Temp Pulse Resp B/P Pulse Ox O2 Delivery O2 Flow Rate FiO2 01/26/17 05:47 63 16 138/68 96 01/25/17 18:00 97.6 Intake and Output 01/25/17 01/25/17 01/26/17 08:00 16:00 00:00 Intake Total 360 ml 2400 ml Balance 360 ml 2400 ml Assessment & Plan Problem List: (1) Dementia of Alzheimer's type with behavioral disturbance ICD Code: G30.8 Assessment & Plan Estimated LOS: days patient continues to [place] confused though no behavioral problems. Compliant medications. For now continue treatment Justification for Cont. Inpt. This time patient would decompensate if placed in a lower level of care Discharge Planning To be determined Request HC Surrog/Guard Advoc?: Yes Problem Qualifiers (1) Dementia of Alzheimer's type with behavioral disturbance: Qualified Code: G30.8 - Alzheimer's dementia with behavioral disturbance, unspecified timing of dementia onset Bharath Espinal MD Jan 26, 2017 07:57
[2017-01-26] MEDS: QUEtiapine FUMARATE 25 MG TAB PO SCH ×3 (08:04→20:00)
[2017-01-26] MEDS: CYANOCOBALAMIN 100 MCG TAB PO SCH (08:04)
[2017-01-26] MEDS: LOSARTAN 50 MG TAB PO SCH (08:05)
[2017-01-26] MEDS: busPIRone HCL 5 MG TAB PO SCH ×2 (08:05→21:15)
[2017-01-26] MEDS: METOPROLOL SUCCINATE 25 MG EXTENDED RELEASE TAB PO SCH (08:05)
[2017-01-26] MEDS: PRAVASTATIN SOD 20 MG TAB PO SCH (08:05)
[2017-01-26] MEDS: CHOLECALCIFEROL (VIT D3) 1000 UNIT TAB PO SCH (08:05)
[2017-01-26] MEDS: ASPIRIN EC 81 MG TABEC PO SCH (08:05)
[2017-01-26 18:34] VITALS: BP 134/72; PULSE 72; RESP 16; O2SAT 97
[2017-01-27 04:48] VITALS: BP 126/70; PULSE 65; RESP 16; TEMP 97.1; O2SAT 96
[2017-01-27] MEDS: METOPROLOL SUCCINATE 25 MG EXTENDED RELEASE TAB PO SCH (08:44)
[2017-01-27] MEDS: CYANOCOBALAMIN 100 MCG TAB PO SCH (08:44)
[2017-01-27] MEDS: ASPIRIN EC 81 MG TABEC PO SCH (08:44)
[2017-01-27] MEDS: PRAVASTATIN SOD 20 MG TAB PO SCH (08:44)
[2017-01-27] MEDS: busPIRone HCL 5 MG TAB PO SCH ×2 (08:44→22:18)
[2017-01-27] MEDS: LOSARTAN 50 MG TAB PO SCH (08:45)
[2017-01-27] MEDS: CHOLECALCIFEROL (VIT D3) 1000 UNIT TAB PO SCH (08:45)
[2017-01-27] MEDS: QUEtiapine FUMARATE 25 MG TAB PO SCH ×3 (08:46→22:18)
--- NOTE | 2017-01-27 09:56 | HHI.PYPN ---
Subjective Remarks Patient seen in day room with nurse Chanel and counselor Madyson, chart review , patient compliant medications. Patient continues alert diffusely confused demented, though no significant behavioral problems noted. For now continue treatment Review of Systems Except as stated in HPI: all other systems reviewed are Neg Objective Alert: Yes [place]: Person Mood: Calm Affect: Restricted Memory Intact: Comment (impaired) Hallucinations: Other (none) Delusions: No Delusion Type: Other (internally stimulated) Suicidal: Ideation (denies) Homicidal: Ideation (denies) Insight/Judgment Very poor Vitals/IOs Vital Signs Date Time Temp Pulse Resp B/P Pulse Ox O2 Delivery O2 Flow Rate FiO2 01/27/17 04:48 97.1 65 16 126/70 96 Intake and Output 01/26/17 01/26/17 01/27/17 08:00 16:00 00:00 Intake Total 240 ml 1680 ml Balance 240 ml 1680 ml Assessment & Plan Problem List: (1) Dementia of Alzheimer's type with behavioral disturbance ICD Code: G30.8 Assessment & Plan Estimated LOS: days patient continues demented confused but no significant behavioral problems. For now continue treatment Justification for Cont. Inpt. At this time patient will decompensate if placed in a lower level of care Discharge Planning To be determined Request HC Surrog/Guard Advoc?: Yes Problem Qualifiers (1) Dementia of Alzheimer's type with behavioral disturbance: Qualified Code: G30.8 - Alzheimer's dementia with behavioral disturbance, unspecified timing of dementia onset Bharath Espinal MD Jan 27, 2017 09:56
[2017-01-27] MEDS: diphenhydrAMINE HCL 50 MG/ML VIAL IM PRN (14:30)
[2017-01-27] MEDS: LORazepam 2 MG/ML VIAL IM PRN (14:30)
[2017-01-27] MEDS: HALOPERIDOL LACTATE 5 MG/ML AMP IM PRN (14:30)
[2017-01-28 06:30] VITALS: BP 131/87; PULSE 74; RESP 19; TEMP 97
[2017-01-28] MEDS: QUEtiapine FUMARATE 25 MG TAB PO SCH ×3 (08:00→20:43)
[2017-01-28] MEDS: busPIRone HCL 5 MG TAB PO SCH ×2 (09:00→20:43)
[2017-01-28] MEDS: LOSARTAN 50 MG TAB PO SCH (09:00)
[2017-01-28] MEDS: CHOLECALCIFEROL (VIT D3) 1000 UNIT TAB PO SCH (09:00)
[2017-01-28] MEDS: CYANOCOBALAMIN 100 MCG TAB PO SCH (09:00)
[2017-01-28] MEDS: ASPIRIN EC 81 MG TABEC PO SCH (09:00)
[2017-01-28] MEDS: METOPROLOL SUCCINATE 25 MG EXTENDED RELEASE TAB PO SCH (09:00)
[2017-01-28] MEDS: PRAVASTATIN SOD 20 MG TAB PO SCH (09:00)
--- NOTE | 2017-01-28 10:56 | HHI.PYPN ---
Subjective Remarks Patient seen in day room with nurse Candace and medical student Arias. Chart reviewed. Patient continues confused disoriented at this time no behavioral problem. Compliant medications. Now continue treatment Review of Systems Except as stated in HPI: all other systems reviewed are Neg Objective Alert: Yes [place]: Person Mood: Calm Affect: Restricted Memory Intact: Comment (impaired) Hallucinations: Other (none) Delusions: No Delusion Type: Other (internally stimulated) Suicidal: Ideation (denies) Homicidal: Ideation (denies) Insight/Judgment Poor Vitals/IOs Vital Signs Date Time Temp Pulse Resp B/P Pulse Ox O2 Delivery O2 Flow Rate FiO2 01/28/17 06:30 97.0 74 19 131/87 01/27/17 04:48 96 Intake and Output 01/27/17 01/27/17 01/28/17 08:00 16:00 00:00 Intake Total 480 ml 360 ml Balance 480 ml 360 ml Assessment & Plan Problem List: (1) Dementia of Alzheimer's type with behavioral disturbance ICD Code: G30.8 Assessment & Plan Estimated LOS: days patient continues confused demented, but this time no significant behavioral problems. Compliant medication. For now continue treatment Justification for Cont. Inpt. This time patient would decompensate the placed in the lower level of care Discharge Planning To be determined Request HC Surrog/Guard Advoc?: Yes Problem Qualifiers (1) Dementia of Alzheimer's type with behavioral disturbance: Qualified Code: G30.8 - Alzheimer's dementia with behavioral disturbance, unspecified timing of dementia onset Bharath Espinal MD Jan 28, 2017 10:56
[2017-01-28 19:46] VITALS: BP 120/70; PULSE 77; RESP 17; TEMP 98; O2SAT 95
[2017-01-29 04:00] VITALS: BP 135/84; PULSE 67; RESP 18; TEMP 96.6; O2SAT 100
[2017-01-29] MEDS: CHOLECALCIFEROL (VIT D3) 1000 UNIT TAB PO SCH (08:10)
[2017-01-29] MEDS: PRAVASTATIN SOD 20 MG TAB PO SCH (08:10)
[2017-01-29] MEDS: ASPIRIN EC 81 MG TABEC PO SCH (08:10)
[2017-01-29] MEDS: busPIRone HCL 5 MG TAB PO SCH ×2 (08:10→20:31)
[2017-01-29] MEDS: CYANOCOBALAMIN 100 MCG TAB PO SCH (08:10)
[2017-01-29] MEDS: METOPROLOL SUCCINATE 25 MG EXTENDED RELEASE TAB PO SCH (08:10)
[2017-01-29] MEDS: LOSARTAN 50 MG TAB PO SCH (08:10)
[2017-01-29] MEDS: QUEtiapine FUMARATE 25 MG TAB PO SCH ×3 (08:11→20:31)
[2017-01-29] MEDS: HALOPERIDOL LACTATE 5 MG/ML AMP IM PRN (14:41)
--- NOTE | 2017-01-29 16:06 | HHI.PYPN ---
Subjective Remarks Patient seen in day room with nurses bernardino good. Chart reviewed. Patient continues confused demented at times somewhat irritable. There is an area of dryness noted on his right forearm just distal to the antecubital fossa. Daughter some cream for that Review of Systems Except as stated in HPI: all other systems reviewed are Neg Objective Alert: Yes [place]: Person Mood: Calm Affect: Restricted Memory Intact: Comment (impaired) Hallucinations: Other (none) Delusions: No Delusion Type: Other (internally stimulated) Suicidal: Ideation (denies) Homicidal: Ideation (denies) Insight/Judgment Very poor Vitals/IOs Vital Signs Date Time Temp Pulse Resp B/P Pulse Ox O2 Delivery O2 Flow Rate FiO2 01/29/17 04:00 96.6 67 18 135/84 100 Intake and Output 01/28/17 01/28/17 01/29/17 08:00 16:00 00:00 Intake Total 720 ml 480 ml Balance 720 ml 480 ml Assessment & Plan Problem List: (1) Dementia of Alzheimer's type with behavioral disturbance ICD Code: G30.8 Assessment & Plan Estimated LOS: days patient continues dementia confused at times somewhat irritable. His rash noted on his right volar proximal forearm will order some appointment for that Justification for Cont. Inpt. At this time patient will decompensate a placed a lower level of care Discharge Planning To be determined Request HC Surrog/Guard Advoc?: Yes Problem Qualifiers (1) Dementia of Alzheimer's type with behavioral disturbance: Qualified Code: G30.8 - Alzheimer's dementia with behavioral disturbance, unspecified timing of dementia onset Bharath Espinal MD Jan 29, 2017 16:06
[2017-01-29 16:31] VITALS: BP 109/61; PULSE 67; RESP 18; TEMP 97.8; O2SAT 97
[2017-01-29] MEDS: MELATONIN 5 MG TAB PO PRN (20:29)
[2017-01-29] MEDS: ACETAMINOPHEN 325 MG TAB PO PRN (20:31)
[2017-01-29] MEDS: BETAMETHASONE/CLOTRIMAZOLE CREAM 15 GM TOPICAL SCH (21:52)
[2017-01-30 04:00] VITALS: BP 115/63; PULSE 60; RESP 16; TEMP 98.4
[2017-01-30] MEDS: BETAMETHASONE/CLOTRIMAZOLE CREAM 15 GM TOPICAL SCH ×2 (08:42→21:53)
[2017-01-30] MEDS: PRAVASTATIN SOD 20 MG TAB PO SCH (08:42)
[2017-01-30] MEDS: busPIRone HCL 5 MG TAB PO SCH ×2 (08:43→21:53)
[2017-01-30] MEDS: CYANOCOBALAMIN 100 MCG TAB PO SCH (08:43)
[2017-01-30] MEDS: ASPIRIN EC 81 MG TABEC PO SCH (08:43)
[2017-01-30] MEDS: LOSARTAN 50 MG TAB PO SCH (08:43)
[2017-01-30] MEDS: METOPROLOL SUCCINATE 25 MG EXTENDED RELEASE TAB PO SCH (08:43)
[2017-01-30] MEDS: CHOLECALCIFEROL (VIT D3) 1000 UNIT TAB PO SCH (08:43)
[2017-01-30] MEDS: QUEtiapine FUMARATE 25 MG TAB PO SCH ×3 (08:48→21:53)
--- NOTE | 2017-01-30 16:27 | HHI.PYPN ---
Subjective Remarks Pt seen and discussed with staff. Pt has been calm and cooperative without any behavioral problems on unit. He is compliant with care and medications. No SI/HI Objective Alert: Yes [place]: Person Mood: Calm Affect: Restricted Memory Intact: Comment (impaired) Hallucinations: Other (none) Delusions: No Delusion Type: Other (none) Suicidal: Ideation (denies) Homicidal: Ideation (denies) Insight/Judgment poor Vitals/IOs Vital Signs Date Time Temp Pulse Resp B/P Pulse Ox O2 Delivery O2 Flow Rate FiO2 01/30/17 04:00 98.4 60 16 115/63 01/29/17 16:31 97 Intake and Output 01/29/17 01/29/17 01/30/17 08:00 16:00 00:00 Intake Total 240 ml 360 ml Balance 240 ml 360 ml Assessment & Plan Problem List: (1) Dementia of Alzheimer's type with behavioral disturbance ICD Code: G30.8 Assessment & Plan Continue current tx plan. Estimated LOS: days Justification for Cont. Inpt. risk of decompensation Request HC Surrog/Guard Advoc?: Yes Problem Qualifiers (1) Dementia of Alzheimer's type with behavioral disturbance: Qualified Code: G30.8 - Alzheimer's dementia with behavioral disturbance, unspecified timing of dementia onset Ramona Garcia MD Jan 30, 2017 16:27
[2017-01-30 18:00] VITALS: BP 122/71; PULSE 76; RESP 18; TEMP 97.6; O2SAT 97
[2017-01-31 06:11] VITALS: BP 132/74; PULSE 65; RESP 18; TEMP 98.5; O2SAT 98
[2017-01-31] MEDS: ASPIRIN EC 81 MG TABEC PO SCH (07:59)
[2017-01-31] MEDS: PRAVASTATIN SOD 20 MG TAB PO SCH (08:01)
[2017-01-31] MEDS: LOSARTAN 50 MG TAB PO SCH (08:01)
[2017-01-31] MEDS: busPIRone HCL 5 MG TAB PO SCH ×2 (08:01→21:15)
[2017-01-31] MEDS: METOPROLOL SUCCINATE 25 MG EXTENDED RELEASE TAB PO SCH (08:01)
[2017-01-31] MEDS: CHOLECALCIFEROL (VIT D3) 1000 UNIT TAB PO SCH (08:01)
[2017-01-31] MEDS: CYANOCOBALAMIN 100 MCG TAB PO SCH (08:01)
[2017-01-31] MEDS: QUEtiapine FUMARATE 25 MG TAB PO SCH ×3 (08:03→21:16)
[2017-01-31] MEDS: BETAMETHASONE/CLOTRIMAZOLE CREAM 15 GM TOPICAL SCH ×2 (08:03→21:15)
--- NOTE | 2017-01-31 14:22 | HHI.PYPN ---
Subjective Remarks Pt seen and discussed with staff. No behavioral disturbances or agitation. Cooperative with care. Pt has been napping off and on for most of the day but easily arouses. No SI/HI Objective Alert: Yes [place]: Person Mood: Calm Affect: Restricted Memory Intact: Comment (impaired) Hallucinations: Other (none) Delusions: No Delusion Type: Other (none) Suicidal: Ideation (denies) Homicidal: Ideation (denies) Insight/Judgment poor Vitals/IOs Vital Signs Date Time Temp Pulse Resp B/P Pulse Ox O2 Delivery O2 Flow Rate FiO2 01/31/17 06:11 98.5 65 18 132/74 98 Intake and Output 01/30/17 01/30/17 01/31/17 08:00 16:00 00:00 Intake Total 340 ml 720 ml Balance 340 ml 720 ml Assessment & Plan Problem List: (1) Dementia of Alzheimer's type with behavioral disturbance ICD Code: G30.8 Assessment & Plan continue current tx plan. Estimated LOS: days Justification for Cont. Inpt. risk of decompensation Request HC Surrog/Guard Advoc?: Yes Problem Qualifiers (1) Dementia of Alzheimer's type with behavioral disturbance: Qualified Code: G30.8 - Alzheimer's dementia with behavioral disturbance, unspecified timing of dementia onset Ramona Garcia MD Jan 31, 2017 14:22
[2017-02-01 06:29] VITALS: BP 141/77; PULSE 67; RESP 17; TEMP 97.6; O2SAT 96
[2017-02-01] MEDS: LOSARTAN 50 MG TAB PO SCH (08:17)
[2017-02-01] MEDS: QUEtiapine FUMARATE 25 MG TAB PO SCH ×3 (08:17→21:02)
[2017-02-01] MEDS: CYANOCOBALAMIN 100 MCG TAB PO SCH (08:18)
[2017-02-01] MEDS: ASPIRIN EC 81 MG TABEC PO SCH (08:18)
[2017-02-01] MEDS: BETAMETHASONE/CLOTRIMAZOLE CREAM 15 GM TOPICAL SCH ×2 (08:18→21:02)
[2017-02-01] MEDS: METOPROLOL SUCCINATE 25 MG EXTENDED RELEASE TAB PO SCH (08:18)
[2017-02-01] MEDS: busPIRone HCL 5 MG TAB PO SCH ×2 (08:18→21:02)
[2017-02-01] MEDS: CHOLECALCIFEROL (VIT D3) 1000 UNIT TAB PO SCH (08:18)
[2017-02-01] MEDS: PRAVASTATIN SOD 20 MG TAB PO SCH (08:18)
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
--- NOTE | 2017-02-01 14:20 | HHI.PYPN ---
Subjective Remarks Patient discussed with treatment team, patient seen on unit with nurse a she chart reviewed. Patient compliant medication. Patients napping today in Saranya chair was arousable to somewhat irritable continues confused and disoriented. For now continue treatment Review of Systems Except as stated in HPI: all other systems reviewed are Neg Objective Alert: Yes [place]: Person Mood: Calm Affect: Restricted Memory Intact: Comment (impaired) Hallucinations: Other (none) Delusions: No Delusion Type: Other (none) Suicidal: Ideation (denies) Homicidal: Ideation (denies) Insight/Judgment Poor Vitals/IOs Vital Signs Date Time Temp Pulse Resp B/P Pulse Ox O2 Delivery O2 Flow Rate FiO2 02/01/17 06:29 97.6 67 17 141/77 96 Intake and Output 01/31/17 01/31/17 02/01/17 08:00 16:00 00:00 Intake Total 840 ml 240 ml Balance 840 ml 240 ml Assessment & Plan Problem List: (1) Dementia of Alzheimer's type with behavioral disturbance ICD Code: G30.8 Assessment & Plan Estimated LOS: days patient continues confused and demented, though no significant behavioral problems. For now continue treatment Justification for Cont. Inpt. At this time patient will decompensate if placed in a lower level of care Discharge Planning To be determined Request HC Surrog/Guard Advoc?: Yes Problem Qualifiers (1) Dementia of Alzheimer's type with behavioral disturbance: Qualified Code: G30.8 - Alzheimer's dementia with behavioral disturbance, unspecified timing of dementia onset Bharath Espinal MD Feb 01, 2017 14:20
[2017-02-01 18:00] VITALS: BP 132/72; PULSE 88; RESP 16; O2SAT 97
[2017-02-02 06:00] VITALS: BP 143/79; PULSE 64; RESP 20; TEMP 97.7; O2SAT 97
[2017-02-02] MEDS: BETAMETHASONE/CLOTRIMAZOLE CREAM 15 GM TOPICAL SCH ×2 (09:00→21:55)
[2017-02-02] MEDS: PRAVASTATIN SOD 20 MG TAB PO SCH (09:13)
[2017-02-02] MEDS: METOPROLOL SUCCINATE 25 MG EXTENDED RELEASE TAB PO SCH (09:13)
[2017-02-02] MEDS: CHOLECALCIFEROL (VIT D3) 1000 UNIT TAB PO SCH (09:13)
[2017-02-02] MEDS: LOSARTAN 50 MG TAB PO SCH (09:13)
[2017-02-02] MEDS: CYANOCOBALAMIN 100 MCG TAB PO SCH (09:13)
[2017-02-02] MEDS: busPIRone HCL 5 MG TAB PO SCH ×2 (09:13→21:54)
[2017-02-02] MEDS: ASPIRIN EC 81 MG TABEC PO SCH (09:13)
[2017-02-02] MEDS: QUEtiapine FUMARATE 25 MG TAB PO SCH ×3 (09:14→21:54)
--- NOTE | 2017-02-02 11:47 | HHI.PYPN ---
Subjective Remarks Patient seen in day room with nurse Sheela. Patient calm confused at this time, though issues some resistance at times to interventions by staff. For now continue treatment Review of Systems Except as stated in HPI: all other systems reviewed are Neg Objective Alert: Yes [place]: Person Mood: Calm Affect: Restricted Memory Intact: Comment (impaired) Hallucinations: Other (none) Delusions: No Delusion Type: Other (none) Suicidal: Ideation (denies) Homicidal: Ideation (denies) Insight/Judgment Very poor Vitals/IOs Vital Signs Date Time Temp Pulse Resp B/P Pulse Ox O2 Delivery O2 Flow Rate FiO2 02/02/17 06:00 97.7 64 20 143/79 97 Intake and Output 02/01/17 02/01/17 02/02/17 08:00 16:00 00:00 Intake Total 360 ml 1440 ml 360 ml Balance 360 ml 1440 ml 360 ml Assessment & Plan Problem List: (1) Dementia of Alzheimer's type with behavioral disturbance ICD Code: G30.8 Assessment & Plan Estimated LOS: days patient continues [place] confused showing some resistance when interventions and necessary Justification for Cont. Inpt. At this time patient will decompensate then placed the lower level of care Discharge Planning To be determined Request HC Surrog/Guard Advoc?: Yes Problem Qualifiers (1) Dementia of Alzheimer's type with behavioral disturbance: Qualified Code: G30.8 - Alzheimer's dementia with behavioral disturbance, unspecified timing of dementia onset Bharath Espinal MD Feb 02, 2017 11:46
[2017-02-02 16:12] VITALS: BP 127/67; PULSE 80; RESP 18; TEMP 96.9; O2SAT 95
[2017-02-03 07:06] VITALS: BP 128/72; PULSE 63; RESP 18; TEMP 97.5
[2017-02-03] MEDS: QUEtiapine FUMARATE 25 MG TAB PO SCH ×3 (08:00→21:35)
[2017-02-03] MEDS: METOPROLOL SUCCINATE 25 MG EXTENDED RELEASE TAB PO SCH (09:00)
[2017-02-03] MEDS: CHOLECALCIFEROL (VIT D3) 1000 UNIT TAB PO SCH (09:00)
[2017-02-03] MEDS: CYANOCOBALAMIN 100 MCG TAB PO SCH (09:00)
[2017-02-03] MEDS: BETAMETHASONE/CLOTRIMAZOLE CREAM 15 GM TOPICAL SCH ×2 (09:00→21:00)
[2017-02-03] MEDS: PRAVASTATIN SOD 20 MG TAB PO SCH (09:00)
[2017-02-03] MEDS: LOSARTAN 50 MG TAB PO SCH (09:00)
[2017-02-03] MEDS: ASPIRIN EC 81 MG TABEC PO SCH (09:00)
[2017-02-03] MEDS: busPIRone HCL 5 MG TAB PO SCH ×2 (09:00→21:35)
--- NOTE | 2017-02-03 15:01 | HHI.PYPN ---
Subjective Remarks Patient seen in day room with nurse Shanice, chart review, patient compliant medications. Patient continues confused disoriented at times somewhat irritable and labile though overall able to be redirected patient scheduled for [place] [facility] tomorrow Review of Systems Except as stated in HPI: all other systems reviewed are Neg Objective Alert: Yes [place]: Person Mood: Calm Affect: Restricted Memory Intact: Comment (impaired) Hallucinations: Other (none) Delusions: No Delusion Type: Other (none) Suicidal: Ideation (denies) Homicidal: Ideation (denies) Insight/Judgment Very poor Vitals/IOs Vital Signs Date Time Temp Pulse Resp B/P Pulse Ox O2 Delivery O2 Flow Rate FiO2 02/03/17 07:06 97.5 63 18 128/72 02/02/17 16:12 95 Intake and Output 02/02/17 02/02/17 02/03/17 08:00 16:00 00:00 Intake Total 600 ml 2160 ml Balance 600 ml 2160 ml Assessment & Plan Problem List: (1) Dementia of Alzheimer's type with behavioral disturbance ICD Code: G30.8 Assessment & Plan Estimated LOS: days patient continues diffusely confused and demented at times needing redirection at times somewhat irritable Justification for Cont. Inpt. At this time patient will decompensate placed a lower level of care Discharge Planning To be determined Request HC Surrog/Guard Advoc?: Yes Problem Qualifiers (1) Dementia of Alzheimer's type with behavioral disturbance: Qualified Code: G30.8 - Alzheimer's dementia with behavioral disturbance, unspecified timing of dementia onset Bharath Espinal MD Feb 03, 2017 15:01
[2017-02-03 18:00] VITALS: BP 127/60; PULSE 84; RESP 16; TEMP 97.6; O2SAT 99
[2017-02-04 06:18] VITALS: BP 128/69; PULSE 66; RESP 16; TEMP 98.1; O2SAT 96
[2017-02-04] MEDS: QUEtiapine FUMARATE 25 MG TAB PO SCH ×3 (08:00→21:21)
[2017-02-04] MEDS: PRAVASTATIN SOD 20 MG TAB PO SCH (09:00)
[2017-02-04] MEDS: CHOLECALCIFEROL (VIT D3) 1000 UNIT TAB PO SCH (09:00)
[2017-02-04] MEDS: busPIRone HCL 5 MG TAB PO SCH ×2 (09:00→21:21)
[2017-02-04] MEDS: CYANOCOBALAMIN 1,000 MCG TAB PO SCH (09:00)
[2017-02-04] MEDS: ASPIRIN EC 81 MG TABEC PO SCH (09:00)
[2017-02-04] MEDS: METOPROLOL SUCCINATE 25 MG EXTENDED RELEASE TAB PO SCH (09:00)
[2017-02-04] MEDS: LOSARTAN 50 MG TAB PO SCH (09:00)
[2017-02-04] MEDS: BETAMETHASONE/CLOTRIMAZOLE CREAM 15 GM TOPICAL SCH (09:00)
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
[2017-02-04 18:00] VITALS: BP 152/74; PULSE 77; RESP 17; TEMP 98; O2SAT 96
[2017-02-05 06:00] VITALS: BP 146/74; PULSE 71; RESP 17; TEMP 98.5
[2017-02-05] MEDS: QUEtiapine FUMARATE 25 MG TAB PO SCH ×3 (08:00→20:33)
[2017-02-05] MEDS: CHOLECALCIFEROL (VIT D3) 1000 UNIT TAB PO SCH (09:00)
[2017-02-05] MEDS: PRAVASTATIN SOD 20 MG TAB PO SCH (09:00)
[2017-02-05] MEDS: CYANOCOBALAMIN 1,000 MCG TAB PO SCH (09:00)
[2017-02-05] MEDS: LOSARTAN 50 MG TAB PO SCH (09:00)
[2017-02-05] MEDS: busPIRone HCL 5 MG TAB PO SCH ×2 (09:00→20:33)
[2017-02-05] MEDS: ASPIRIN EC 81 MG TABEC PO SCH (09:00)
[2017-02-05] MEDS: METOPROLOL SUCCINATE 25 MG EXTENDED RELEASE TAB PO SCH (09:00)
--- NOTE | 2017-02-05 15:37 | HHI.PYPN ---
Subjective Remarks Patient seen in day room with nurse Juan Alberto. Patient continues confused demented , at times somewhat irritable but there is no aggressive outbursts noted yet today, compliant medications Review of Systems Except as stated in HPI: all other systems reviewed are Neg Objective Alert: Yes [place]: Person Mood: Calm Affect: Restricted Memory Intact: Comment (impaired) Hallucinations: Other (none) Delusions: No Delusion Type: Other (none) Suicidal: Ideation (denies) Homicidal: Ideation (denies) Insight/Judgment Very poor Vitals/IOs Vital Signs Date Time Temp Pulse Resp B/P Pulse Ox O2 Delivery O2 Flow Rate FiO2 02/05/17 06:00 98.5 71 17 146/74 02/04/17 18:00 96 Intake and Output 02/04/17 02/04/17 02/04/17 07:59 15:59 23:59 Intake Total 0 ml 960 ml Balance 0 ml 960 ml Assessment & Plan Problem List: (1) Dementia of Alzheimer's type with behavioral disturbance ICD Code: G30.8 Assessment & Plan Patient continues dementia confused though today no behavioral problems Justification for Cont. Inpt. At this time patient will decompensate if placed in a lower level of care Discharge Planning To be determined Request HC Surrog/Guard Advoc?: Yes Problem Qualifiers (1) Dementia of Alzheimer's type with behavioral disturbance: Qualified Code: G30.8 - Alzheimer's dementia with behavioral disturbance, unspecified timing of dementia onset Bharath Espinal MD Feb 05, 2017 15:37
[2017-02-05 18:00] VITALS: BP 166/77; PULSE 75; RESP 19; TEMP 97.5; O2SAT 97
[2017-02-06 05:52] VITALS: BP 134/65; PULSE 63; RESP 18; TEMP 97.5; O2SAT 97
[2017-02-06] MEDS: busPIRone HCL 5 MG TAB PO SCH ×2 (08:49→20:44)
[2017-02-06] MEDS: LOSARTAN 50 MG TAB PO SCH (08:49)
[2017-02-06] MEDS: CYANOCOBALAMIN 1,000 MCG TAB PO SCH (08:49)
[2017-02-06] MEDS: PRAVASTATIN SOD 20 MG TAB PO SCH (08:49)
[2017-02-06] MEDS: METOPROLOL SUCCINATE 25 MG EXTENDED RELEASE TAB PO SCH (08:49)
[2017-02-06] MEDS: ASPIRIN EC 81 MG TABEC PO SCH (08:49)
[2017-02-06] MEDS: CHOLECALCIFEROL (VIT D3) 1000 UNIT TAB PO SCH (08:49)
[2017-02-06] MEDS: QUEtiapine FUMARATE 25 MG TAB PO SCH ×3 (09:44→20:44)
--- NOTE | 2017-02-06 09:52 | HHI.PYPN ---
Subjective Remarks Patient was seen and case discussed with nursing. Patient is alert and oriented 1. Internally preoccupied and picking at things in the air. Behaving well on the unit. Compliant with his medications. Objective Alert: Yes [place]: Person Mood: Calm Affect: Blunted Memory Intact: Comment (impaired) Hallucinations: Other (none) Delusions: No Delusion Type: Other (internally preoccupied) Suicidal: Ideation (denies) Homicidal: Ideation (denies) Insight/Judgment Poor Vitals/IOs Vital Signs Date Time Temp Pulse Resp B/P Pulse Ox O2 Delivery O2 Flow Rate FiO2 02/06/17 05:52 97.5 63 18 134/65 97 Intake and Output 02/05/17 02/05/17 02/05/17 07:59 15:59 23:59 Intake Total 960 ml 960 ml 360 ml Output Total 1 ml Balance 960 ml 960 ml 359 ml Assessment & Plan Problem List: (1) Dementia of Alzheimer's type with behavioral disturbance ICD Code: G30.8 Assessment & Plan Continue current treatment plan Justification for Cont. Inpt. Patient will decompensate in a less restrictive setting Request HC Surrog/Guard Advoc?: Yes Problem Qualifiers (1) Dementia of Alzheimer's type with behavioral disturbance: Qualified Code: G30.8 - Alzheimer's dementia with behavioral disturbance, unspecified timing of dementia onset Omkar Lazcano DO Feb 06, 2017 09:52
[2017-02-06 20:00] VITALS: BP 161/78; PULSE 70; RESP 18; TEMP 97.1; O2SAT 98
[2017-02-07 06:00] VITALS: BP 117/61; PULSE 70; RESP 16; TEMP 98.6; O2SAT 96
[2017-02-07] MEDS: METOPROLOL SUCCINATE 25 MG EXTENDED RELEASE TAB PO SCH (09:00)
[2017-02-07] MEDS: PRAVASTATIN SOD 20 MG TAB PO SCH (09:05)
[2017-02-07] MEDS: CYANOCOBALAMIN 1,000 MCG TAB PO SCH (09:05)
[2017-02-07] MEDS: CHOLECALCIFEROL (VIT D3) 1000 UNIT TAB PO SCH (09:05)
[2017-02-07] MEDS: LOSARTAN 50 MG TAB PO SCH (09:05)
[2017-02-07] MEDS: busPIRone HCL 5 MG TAB PO SCH ×2 (09:05→20:03)
[2017-02-07] MEDS: ASPIRIN EC 81 MG TABEC PO SCH (09:05)
[2017-02-07] MEDS: QUEtiapine FUMARATE 25 MG TAB PO SCH ×3 (09:07→20:03)
--- NOTE | 2017-02-07 13:45 | HHI.PYPN ---
Subjective Remarks Patient was seen and case discussed with nursing. Patient is less internally preoccupied and his not picking at the air today. When asked them what purpose of that was, if perhaps he is seen things that are not there, patient mumbles unintelligibly. Alert and oriented 1. Compliant with medications and behaving well on the unit Objective Alert: Yes [place]: Person Mood: Calm Affect: Restricted Memory Intact: Comment (impaired) Hallucinations: Other (none) Delusions: No Delusion Type: Other (internally preoccupied) Suicidal: Ideation (denies) Homicidal: Ideation (denies) Insight/Judgment Poor Vitals/IOs Vital Signs Date Time Temp Pulse Resp B/P Pulse Ox O2 Delivery O2 Flow Rate FiO2 02/07/17 06:00 98.6 70 16 117/61 96 Intake and Output 02/06/17 02/06/17 02/06/17 07:59 15:59 23:59 Intake Total 360 ml 780 ml Balance 360 ml 780 ml Assessment & Plan Problem List: (1) Dementia of Alzheimer's type with behavioral disturbance ICD Code: G30.8 Assessment & Plan Continue current treatment plan Justification for Cont. Inpt. Patient will decompensate in a less restrictive setting Request HC Surrog/Guard Advoc?: Yes Problem Qualifiers (1) Dementia of Alzheimer's type with behavioral disturbance: Qualified Code: G30.8 - Alzheimer's dementia with behavioral disturbance, unspecified timing of dementia onset Omkar Lazcano DO Feb 07, 2017 13:44
[2017-02-08 05:28] VITALS: BP 129/73; PULSE 67; RESP 19; TEMP 98.9; O2SAT 95
[2017-02-08] MEDS: CHOLECALCIFEROL (VIT D3) 1000 UNIT TAB PO SCH (09:55)
[2017-02-08] MEDS: PRAVASTATIN SOD 20 MG TAB PO SCH (09:55)
[2017-02-08] MEDS: LOSARTAN 50 MG TAB PO SCH (09:55)
[2017-02-08] MEDS: CYANOCOBALAMIN 1,000 MCG TAB PO SCH (09:56)
[2017-02-08] MEDS: busPIRone HCL 5 MG TAB PO SCH ×2 (09:56→20:46)
[2017-02-08] MEDS: METOPROLOL SUCCINATE 25 MG EXTENDED RELEASE TAB PO SCH (09:56)
[2017-02-08] MEDS: ASPIRIN EC 81 MG TABEC PO SCH (09:56)
[2017-02-08] MEDS: QUEtiapine FUMARATE 25 MG TAB PO SCH ×3 (10:01→20:46)
--- NOTE | 2017-02-08 15:56 | HHI.PYPN ---
Subjective Remarks Patient seen in day room with Dr. Sharp, chart reviewed. Patient calm cooperative no issues at this time with his behavior. Continues diffusely confused and disoriented. Compliant medications. For now continue treatment Review of Systems Except as stated in HPI: all other systems reviewed are Neg Objective Alert: Yes [place]: Person Mood: Calm Affect: Restricted Memory Intact: Comment (impaired) Hallucinations: Other (none) Delusions: No Delusion Type: Other (internally preoccupied) Suicidal: Ideation (denies) Homicidal: Ideation (denies) Insight/Judgment Very poor Vitals/IOs Vital Signs Date Time Temp Pulse Resp B/P Pulse Ox O2 Delivery O2 Flow Rate FiO2 02/08/17 05:28 98.9 67 19 129/73 95 Intake and Output 02/07/17 02/07/17 02/08/17 08:00 16:00 00:00 Intake Total 3030 ml Balance 3030 ml Assessment & Plan Problem List: (1) Dementia of Alzheimer's type with behavioral disturbance ICD Code: G30.8 Assessment & Plan Estimated LOS: days patient continues confused and demented, no behavior problems noted today Justification for Cont. Inpt. At this time patient decompensate if placed on lower level of care Discharge Planning To be determined Request HC Surrog/Guard Advoc?: Yes Problem Qualifiers (1) Dementia of Alzheimer's type with behavioral disturbance: Qualified Code: G30.8 - Alzheimer's dementia with behavioral disturbance, unspecified timing of dementia onset Bharath Espinal MD Feb 08, 2017 15:56
[2017-02-08 16:50] VITALS: BP 134/77; PULSE 72; RESP 18; TEMP 97.3; O2SAT 96
[2017-02-09 06:10] VITALS: BP 148/92; PULSE 88; RESP 18; TEMP 98.3; O2SAT 98
[2017-02-09] MEDS: CHOLECALCIFEROL (VIT D3) 1000 UNIT TAB PO SCH (08:45)
[2017-02-09] MEDS: CYANOCOBALAMIN 1,000 MCG TAB PO SCH (08:45)
[2017-02-09] MEDS: ASPIRIN EC 81 MG TABEC PO SCH (08:45)
[2017-02-09] MEDS: METOPROLOL SUCCINATE 25 MG EXTENDED RELEASE TAB PO SCH (08:45)
[2017-02-09] MEDS: busPIRone HCL 5 MG TAB PO SCH ×2 (08:46→21:04)
[2017-02-09] MEDS: PRAVASTATIN SOD 20 MG TAB PO SCH (08:46)
[2017-02-09] MEDS: LOSARTAN 50 MG TAB PO SCH (08:46)
[2017-02-09] MEDS: QUEtiapine FUMARATE 25 MG TAB PO SCH ×3 (08:47→21:04)
--- NOTE | 2017-02-09 10:49 | HHI.PYPN ---
Subjective Remarks Patient seen in day room with nurse Candi, chart review, patient compliant medications. Patient at this time calm continues confused and demented. Though no behavioral problems. For now continue treatment Review of Systems Except as stated in HPI: all other systems reviewed are Neg Objective Alert: Yes [place]: Person Mood: Calm Affect: Restricted Memory Intact: Comment (impaired) Hallucinations: Other (none) Delusions: No Delusion Type: Other (internally preoccupied) Suicidal: Ideation (denies) Homicidal: Ideation (denies) Insight/Judgment Very poor Vitals/IOs Vital Signs Date Time Temp Pulse Resp B/P Pulse Ox O2 Delivery O2 Flow Rate FiO2 02/09/17 06:10 98.3 88 18 148/92 98 Intake and Output 02/08/17 02/08/17 02/09/17 08:00 16:00 00:00 Intake Total 1920 ml Balance 1920 ml Assessment & Plan Problem List: (1) Dementia of Alzheimer's type with behavioral disturbance ICD Code: G30.8 Assessment & Plan Estimated LOS: days patient continues confused and demented, noticing a behavior problems noted recently. Compliant with medications Justification for Cont. Inpt. At this time patient will decompensate if placed in a lower level of care Discharge Planning To be determined Request HC Surrog/Guard Advoc?: Yes Problem Qualifiers (1) Dementia of Alzheimer's type with behavioral disturbance: Qualified Code: G30.8 - Alzheimer's dementia with behavioral disturbance, unspecified timing of dementia onset Bharath Espinal MD Feb 09, 2017 10:49
--- NOTE | 2017-02-09 13:39 | PD.TTN ---
Present for Treatment Team Treatment Team Staff: Provider (Dr. Espinal), Nurse (Candi), Psych Therapist ( HAKEEM Fishman) Patient Problems 1. Discharge planning 2. Medication compliance 3. Knowledge deficit 4. Lack of coping skills Progress Toward Goals Provider Input: Dr. Espinal inquired regarding patient's medication compliance and placement. Nurse Input: Candi reported the patient remains compliant with medications and calm. Psych Therapist Input: Counselor requested the Doctor order a evaluation of patient's pacemaker, per patient's 's request. Documentation Scribe: Hakeem Fishman Date Resolved: Feb 08, 2017 Madyson Stanford Feb 09, 2017 13:39
[2017-02-09 18:04] VITALS: BP 123/75; PULSE 80; RESP 18; O2SAT 99
[2017-02-10 06:00] VITALS: BP 143/73; PULSE 70; RESP 18; TEMP 98.4
[2017-02-10] MEDS: QUEtiapine FUMARATE 25 MG TAB PO SCH ×3 (09:12→20:45)
[2017-02-10] MEDS: CYANOCOBALAMIN 1,000 MCG TAB PO SCH (09:13)
[2017-02-10] MEDS: busPIRone HCL 5 MG TAB PO SCH ×2 (09:14→20:45)
[2017-02-10] MEDS: METOPROLOL SUCCINATE 25 MG EXTENDED RELEASE TAB PO SCH (09:14)
[2017-02-10] MEDS: LOSARTAN 50 MG TAB PO SCH (09:14)
[2017-02-10] MEDS: CHOLECALCIFEROL (VIT D3) 1000 UNIT TAB PO SCH (09:14)
[2017-02-10] MEDS: PRAVASTATIN SOD 20 MG TAB PO SCH (09:14)
[2017-02-10] MEDS: ASPIRIN EC 81 MG TABEC PO SCH (09:15)
--- NOTE | 2017-02-10 11:08 | HHI.PYPN ---
Subjective Remarks Patient seen in activities room nurse Alex, chart review, patient compliant medications. Patient continues diffusely confused demented, though no significant behavior problems noted recently. Review of Systems Except as stated in HPI: all other systems reviewed are Neg Objective Alert: Yes [place]: Person Mood: Calm Affect: Restricted Memory Intact: Comment (impaired) Hallucinations: Other (none) Delusions: No Delusion Type: Other (internally preoccupied) Suicidal: Ideation (denies) Homicidal: Ideation (denies) Insight/Judgment Very poor Vitals/IOs Vital Signs Date Time Temp Pulse Resp B/P Pulse Ox O2 Delivery O2 Flow Rate FiO2 02/10/17 06:00 98.4 70 18 143/73 02/09/17 18:04 99 Intake and Output 02/09/17 02/09/17 02/10/17 08:00 16:00 00:00 Intake Total 960 ml 840 ml Balance 960 ml 840 ml Assessment & Plan Problem List: (1) Dementia of Alzheimer's type with behavioral disturbance ICD Code: G30.8 Assessment & Plan Patient continues demented confused somewhat disoriented, but no behavior problems recently. Justification for Cont. Inpt. At this time patient will decompensate if placed in a lower level of care Discharge Planning To be determined Request HC Surrog/Guard Advoc?: Yes Problem Qualifiers (1) Dementia of Alzheimer's type with behavioral disturbance: Qualified Code: G30.8 - Alzheimer's dementia with behavioral disturbance, unspecified timing of dementia onset Bharath Espinal MD Feb 10, 2017 11:08
[2017-02-10 18:00] VITALS: BP 146/80; PULSE 75; RESP 18; TEMP 97.6; O2SAT 98
[2017-02-10] MEDS: MELATONIN 5 MG TAB PO PRN (23:29)
[2017-02-11 06:00] VITALS: BP 153/76; PULSE 65; RESP 16; TEMP 98
[2017-02-11] MEDS: QUEtiapine FUMARATE 25 MG TAB PO SCH ×3 (08:00→20:03)
[2017-02-11] MEDS: ASPIRIN EC 81 MG TABEC PO SCH (09:00)
[2017-02-11] MEDS: CYANOCOBALAMIN 1,000 MCG TAB PO SCH (10:02)
[2017-02-11] MEDS: busPIRone HCL 5 MG TAB PO SCH ×2 (10:02→20:03)
[2017-02-11] MEDS: LOSARTAN 50 MG TAB PO SCH (10:03)
[2017-02-11] MEDS: PRAVASTATIN SOD 20 MG TAB PO SCH (10:03)
[2017-02-11] MEDS: CHOLECALCIFEROL (VIT D3) 1000 UNIT TAB PO SCH (10:03)
[2017-02-11] MEDS: METOPROLOL SUCCINATE 25 MG EXTENDED RELEASE TAB PO SCH (10:03)
--- NOTE | 2017-02-11 11:32 | HHI.PYPN ---
Subjective Remarks Patient seen in day room in Saranya chair with nurse Nguyen, chart reviewed, patient compliant medications. Patient continues diffusely confused and demented the no recent behavioral problems, Review of Systems Except as stated in HPI: all other systems reviewed are Neg Objective Alert: Yes [place]: Person Mood: Calm Affect: Restricted Memory Intact: Comment (impaired) Hallucinations: Other (none) Delusions: No Delusion Type: Other (internally preoccupied) Suicidal: Ideation (denies) Homicidal: Ideation (denies) Insight/Judgment Very poor Vitals/IOs Vital Signs Date Time Temp Pulse Resp B/P Pulse Ox O2 Delivery O2 Flow Rate FiO2 02/11/17 06:00 98.0 65 16 153/76 02/10/17 18:00 98 Intake and Output 02/10/17 02/10/17 02/11/17 08:00 16:00 00:00 Intake Total 240 ml 240 ml 1320 ml Balance 240 ml 240 ml 1320 ml Assessment & Plan Problem List: (1) Dementia of Alzheimer's type with behavioral disturbance ICD Code: G30.8 (2) DEMENTIA IN OTH DISEASES CLASSD ELSWHR W BEHAVIORAL DISTURB ICD Code: F02.81 Assessment & Plan Estimated LOS: days patient continues confused demented though most of her. Problems at this time Justification for Cont. Inpt. At this time patient may decompensate if not placed an appropriate level of care Discharge Planning To be determined Request HC Surrog/Guard Advoc?: Yes Problem Qualifiers (1) Dementia of Alzheimer's type with behavioral disturbance: Qualified Code: G30.8 - Alzheimer's dementia with behavioral disturbance, unspecified timing of dementia onset Bharath Espinal MD Feb 11, 2017 11:31
[2017-02-12 07:23] VITALS: BP 124/65; PULSE 79; RESP 16; TEMP 98.2; O2SAT 94
[2017-02-12] MEDS: QUEtiapine FUMARATE 25 MG TAB PO SCH ×3 (08:00→21:39)
[2017-02-12] MEDS: CYANOCOBALAMIN 1,000 MCG TAB PO SCH (10:03)
[2017-02-12] MEDS: METOPROLOL SUCCINATE 25 MG EXTENDED RELEASE TAB PO SCH (10:03)
[2017-02-12] MEDS: LOSARTAN 50 MG TAB PO SCH (10:03)
[2017-02-12] MEDS: PRAVASTATIN SOD 20 MG TAB PO SCH (10:03)
[2017-02-12] MEDS: ASPIRIN EC 81 MG TABEC PO SCH (10:03)
[2017-02-12] MEDS: CHOLECALCIFEROL (VIT D3) 1000 UNIT TAB PO SCH (10:04)
[2017-02-12] MEDS: busPIRone HCL 5 MG TAB PO SCH ×2 (10:04→21:39)
--- NOTE | 2017-02-12 13:00 | HHI.PYPN ---
Subjective Remarks Patient seen in day room with nurse Nguyen, chart review, patient compliant medications. Patient sitting in Saranya chair, he is calm quiet continues diffusely confused but no behavioral issues. For now continue treatment, placement is becoming somewhat problematic Review of Systems Except as stated in HPI: all other systems reviewed are Neg Objective Alert: Yes [place]: Person Mood: Calm Affect: Restricted Memory Intact: Comment (impaired) Hallucinations: Other (none) Delusions: No Delusion Type: Other (internally preoccupied) Suicidal: Ideation (denies) Homicidal: Ideation (denies) Insight/Judgment Very poor Vitals/IOs Vital Signs Date Time Temp Pulse Resp B/P Pulse Ox O2 Delivery O2 Flow Rate FiO2 02/12/17 07:23 98.2 79 16 124/65 94 Intake and Output 02/11/17 02/11/17 02/12/17 08:00 16:00 00:00 Intake Total 240 ml 480 ml 600 ml Balance 240 ml 480 ml 600 ml Assessment & Plan Problem List: (1) Dementia of Alzheimer's type with behavioral disturbance ICD Code: G30.8 (2) DEMENTIA IN OTH DISEASES CLASSD ELSWHR W BEHAVIORAL DISTURB ICD Code: F02.81 Assessment & Plan Estimated LOS: days patient continues confused and demented, though today no significant behavioral problems. Now continue treatment Justification for Cont. Inpt. At this time patient may decompensate if not placed in an appropriate level of care Discharge Planning To be determined Request HC Surrog/Guard Advoc?: Yes Problem Qualifiers (1) Dementia of Alzheimer's type with behavioral disturbance: Qualified Code: G30.8 - Alzheimer's dementia with behavioral disturbance, unspecified timing of dementia onset Bharath Espinal MD Feb 12, 2017 13:00
[2017-02-12 16:20] VITALS: BP 128/71; PULSE 80; RESP 16; O2SAT 94
[2017-02-13 06:10] VITALS: BP 140/77; PULSE 72; RESP 17; TEMP 98; O2SAT 95
[2017-02-13] MEDS: CHOLECALCIFEROL (VIT D3) 1000 UNIT TAB PO SCH (10:06)
[2017-02-13] MEDS: CYANOCOBALAMIN 1,000 MCG TAB PO SCH (10:06)
[2017-02-13] MEDS: LOSARTAN 50 MG TAB PO SCH (10:07)
[2017-02-13] MEDS: PRAVASTATIN SOD 20 MG TAB PO SCH (10:07)
[2017-02-13] MEDS: busPIRone HCL 5 MG TAB PO SCH ×2 (10:07→20:40)
[2017-02-13] MEDS: ASPIRIN EC 81 MG TABEC PO SCH (10:07)
[2017-02-13] MEDS: METOPROLOL SUCCINATE 25 MG EXTENDED RELEASE TAB PO SCH (10:07)
[2017-02-13] MEDS: QUEtiapine FUMARATE 25 MG TAB PO SCH ×3 (10:07→20:40)
--- NOTE | 2017-02-13 13:14 | HHI.PYPN ---
Subjective Remarks Patient was seen and case discussed with nursing. Patient is blunted and apathetic during the interview. Sleeping throughout the day per nursing. Is requiring assistance with eating. Alert and oriented 1 Objective Alert: Yes [place]: Person Mood: Calm Affect: Blunted Memory Intact: Comment (impaired) Hallucinations: Other (none) Delusions: No Delusion Type: Other (internally preoccupied) Suicidal: Ideation (denies) Homicidal: Ideation (denies) Insight/Judgment Poor Vitals/IOs Vital Signs Date Time Temp Pulse Resp B/P Pulse Ox O2 Delivery O2 Flow Rate FiO2 02/13/17 06:10 98.0 72 17 140/77 95 Intake and Output 02/12/17 02/12/17 02/12/17 07:59 15:59 23:59 Intake Total 720 ml 1200 ml Balance 720 ml 1200 ml Assessment & Plan Problem List: (1) Dementia of Alzheimer's type with behavioral disturbance ICD Code: G30.8 (2) DEMENTIA IN OTH DISEASES CLASSD ELSWHR W BEHAVIORAL DISTURB ICD Code: F02.81 Assessment & Plan Continue current treatment plan Justification for Cont. Inpt. Patient will decompensate in a less restrictive setting Request HC Surrog/Guard Advoc?: Yes Problem Qualifiers (1) Dementia of Alzheimer's type with behavioral disturbance: Qualified Code: G30.8 - Alzheimer's dementia with behavioral disturbance, unspecified timing of dementia onset Omkar Lazcano DO Feb 13, 2017 13:14
[2017-02-14 06:00] VITALS: BP 141/68; PULSE 74; RESP 18; TEMP 99.1; O2SAT 94
[2017-02-14] MEDS: QUEtiapine FUMARATE 25 MG TAB PO SCH ×3 (09:00→20:18)
[2017-02-14] MEDS: PRAVASTATIN SOD 20 MG TAB PO SCH (09:49)
[2017-02-14] MEDS: CYANOCOBALAMIN 1,000 MCG TAB PO SCH (09:49)
[2017-02-14] MEDS: LOSARTAN 50 MG TAB PO SCH (09:51)
[2017-02-14] MEDS: busPIRone HCL 5 MG TAB PO SCH ×2 (09:51→20:18)
[2017-02-14] MEDS: METOPROLOL SUCCINATE 25 MG EXTENDED RELEASE TAB PO SCH (09:51)
[2017-02-14] MEDS: ASPIRIN EC 81 MG TABEC PO SCH (09:51)
[2017-02-14] MEDS: CHOLECALCIFEROL (VIT D3) 1000 UNIT TAB PO SCH (09:51)
[2017-02-14] MEDS: PILL SPLITTER OTHER PRN (09:52)
--- NOTE | 2017-02-14 11:52 | HHI.PYPN ---
Subjective Remarks Patient was seen and case discussed with nursing. Patient remains sedated throughout the day per nursing. During my interview he was groggy and oriented 1. Compliant with his medications and behaving well on the unit Objective Alert: Yes [place]: Person Mood: Calm Affect: Flat Memory Intact: Comment (impaired) Hallucinations: Other (none) Delusions: No Delusion Type: Other (internally preoccupied) Suicidal: Ideation (denies) Homicidal: Ideation (denies) Insight/Judgment Poor Vitals/IOs Vital Signs Date Time Temp Pulse Resp B/P Pulse Ox O2 Delivery O2 Flow Rate FiO2 02/14/17 06:00 99.1 74 18 141/68 94 Intake and Output 02/13/17 02/13/17 02/14/17 08:00 16:00 00:00 Intake Total 240 ml 480 ml 1200 ml Balance 240 ml 480 ml 1200 ml Assessment & Plan Problem List: (1) Dementia of Alzheimer's type with behavioral disturbance ICD Code: G30.8 (2) DEMENTIA IN OTH DISEASES CLASSD ELSWHR W BEHAVIORAL DISTURB ICD Code: F02.81 Assessment & Plan Consider lowering medication dosing given sedation over the past 2 days Justification for Cont. Inpt. Patient would decompensate in a less restrictive setting Request HC Surrog/Guard Advoc?: Yes Problem Qualifiers (1) Dementia of Alzheimer's type with behavioral disturbance: Qualified Code: G30.8 - Alzheimer's dementia with behavioral disturbance, unspecified timing of dementia onset Omkar Lazcano DO Feb 14, 2017 11:52
[2017-02-14 20:48] VITALS: BP 139/69; PULSE 93; RESP 17; TEMP 97; O2SAT 98
[2017-02-15 06:29] VITALS: BP 145/82; PULSE 78; RESP 18; TEMP 97.1; O2SAT 94
[2017-02-15] MEDS: METOPROLOL SUCCINATE 25 MG EXTENDED RELEASE TAB PO SCH (08:21)
[2017-02-15] MEDS: ASPIRIN EC 81 MG TABEC PO SCH (08:21)
[2017-02-15] MEDS: QUEtiapine FUMARATE 25 MG TAB PO SCH ×3 (08:21→21:39)
[2017-02-15] MEDS: busPIRone HCL 5 MG TAB PO SCH ×2 (08:21→21:39)
[2017-02-15] MEDS: CYANOCOBALAMIN 1,000 MCG TAB PO SCH (08:21)
[2017-02-15] MEDS: PRAVASTATIN SOD 20 MG TAB PO SCH (08:21)
[2017-02-15] MEDS: CHOLECALCIFEROL (VIT D3) 1000 UNIT TAB PO SCH (08:21)
[2017-02-15] MEDS: LOSARTAN 50 MG TAB PO SCH (08:21)
--- NOTE | 2017-02-15 17:24 | HHI.PYPN ---
Subjective Remarks Patient discussed with treatment team, patient seen on unit 4 staff. Chart reviewed. Patient compliant medications. Patient continues no significant behavioral problems at times somewhat irritable and needing some encouragement for cooperation. For now continue treatment Review of Systems Except as stated in HPI: all other systems reviewed are Neg Objective Alert: Yes [place]: Person Mood: Calm Affect: Flat Memory Intact: Comment (impaired) Hallucinations: Other (none) Delusions: No Delusion Type: Other (internally preoccupied) Suicidal: Ideation (denies) Homicidal: Ideation (denies) Insight/Judgment Poor Vitals/IOs Vital Signs Date Time Temp Pulse Resp B/P Pulse Ox O2 Delivery O2 Flow Rate FiO2 02/15/17 06:29 97.1 78 18 145/82 94 Intake and Output 02/14/17 02/14/17 02/14/17 07:59 15:59 23:59 Intake Total 360 ml Balance 360 ml Assessment & Plan Problem List: (1) Dementia of Alzheimer's type with behavioral disturbance ICD Code: G30.8 (2) DEMENTIA IN OTH DISEASES CLASSD ELSWHR W BEHAVIORAL DISTURB ICD Code: F02.81 Assessment & Plan Estimated LOS: days patient continues confused demented at times somewhat irritable when needing care and assistance otherwise no behavior problems Justification for Cont. Inpt. At this time patient will decompensate if placed in a lower level of care Discharge Planning To be determined Request HC Surrog/Guard Advoc?: Yes Problem Qualifiers (1) Dementia of Alzheimer's type with behavioral disturbance: Qualified Code: G30.8 - Alzheimer's dementia with behavioral disturbance, unspecified timing of dementia onset Bharath Espinal MD Feb 15, 2017 17:23
[2017-02-15 18:00] VITALS: BP 133/67; PULSE 74; RESP 18; TEMP 97.8; O2SAT 98
[2017-02-16 06:00] VITALS: BP 145/89; PULSE 73; RESP 17; TEMP 97.7; O2SAT 97
[2017-02-16] MEDS: CHOLECALCIFEROL (VIT D3) 1000 UNIT TAB PO SCH (08:45)
[2017-02-16] MEDS: LOSARTAN 50 MG TAB PO SCH (08:45)
[2017-02-16] MEDS: QUEtiapine FUMARATE 25 MG TAB PO SCH ×4 (08:45→20:22)
[2017-02-16] MEDS: PRAVASTATIN SOD 20 MG TAB PO SCH (08:45)
[2017-02-16] MEDS: METOPROLOL SUCCINATE 25 MG EXTENDED RELEASE TAB PO SCH (08:45)
[2017-02-16] MEDS: CYANOCOBALAMIN 1,000 MCG TAB PO SCH (08:46)
[2017-02-16] MEDS: busPIRone HCL 5 MG TAB PO SCH ×2 (08:47→20:22)
[2017-02-16] MEDS: ASPIRIN EC 81 MG TABEC PO SCH (08:47)
--- NOTE | 2017-02-16 10:51 | HHI.PYPN ---
Subjective Remarks Patient seen in Saranya chair, in day room, with nurse Isamar, chart review, patient compliant medications. Patient somewhat drowsy but arousable to confused disoriented and mildly irritable. Patient is asked if we could from patient's hair I'll put order to have patient's hair trimmed at staff's supervision Review of Systems Except as stated in HPI: all other systems reviewed are Neg Objective Alert: Yes [place]: Person Mood: Calm Affect: Flat Memory Intact: Comment (impaired) Hallucinations: Other (none) Delusions: No Delusion Type: Other (internally preoccupied) Suicidal: Ideation (denies) Homicidal: Ideation (denies) Insight/Judgment Very poor Vitals/IOs Vital Signs Date Time Temp Pulse Resp B/P Pulse Ox O2 Delivery O2 Flow Rate FiO2 02/16/17 06:00 97.7 73 17 145/89 97 Intake and Output 02/15/17 02/15/17 02/16/17 08:00 16:00 00:00 Intake Total 360 ml 240 ml 1320 ml Balance 360 ml 240 ml 1320 ml Assessment & Plan Problem List: (1) Dementia of Alzheimer's type with behavioral disturbance ICD Code: G30.8 (2) DEMENTIA IN OTH DISEASES CLASSD ELSWHR W BEHAVIORAL DISTURB ICD Code: F02.81 Assessment & Plan Estimated LOS: days patient continues confused and demented though no significant behavioral problems. Patient request will have staff attempt to trim patient's care Justification for Cont. Inpt. At this time patient would decompensate if place to the lower level of care Discharge Planning To be determined Request HC Surrog/Guard Advoc?: Yes Problem Qualifiers (1) Dementia of Alzheimer's type with behavioral disturbance: Qualified Code: G30.8 - Alzheimer's dementia with behavioral disturbance, unspecified timing of dementia onset Bharath Espinal MD Feb 16, 2017 10:51
[2017-02-16 15:53] VITALS: BP 132/77; PULSE 68; RESP 18; TEMP 98.6
[2017-02-17 06:00] VITALS: BP 134/80; PULSE 72; RESP 17; TEMP 96.4; O2SAT 95
[2017-02-17] MEDS: busPIRone HCL 5 MG TAB PO SCH ×2 (09:22→20:34)
[2017-02-17] MEDS: QUEtiapine FUMARATE 25 MG TAB PO SCH ×3 (09:22→20:34)
[2017-02-17] MEDS: PRAVASTATIN SOD 20 MG TAB PO SCH (09:22)
[2017-02-17] MEDS: LOSARTAN 50 MG TAB PO SCH (09:23)
[2017-02-17] MEDS: ASPIRIN EC 81 MG TABEC PO SCH (09:23)
[2017-02-17] MEDS: CYANOCOBALAMIN 1,000 MCG TAB PO SCH (09:23)
[2017-02-17] MEDS: METOPROLOL SUCCINATE 25 MG EXTENDED RELEASE TAB PO SCH (09:24)
[2017-02-17] MEDS: CHOLECALCIFEROL (VIT D3) 1000 UNIT TAB PO SCH (09:24)
--- NOTE | 2017-02-17 15:48 | HHI.PYPN ---
Subjective Remarks Patient seen in day room in Saranya chair, patient awake though somewhat drowsy continues diffusely confused and demented, though no significant behavioral problems. Compliant medications. Review of Systems Except as stated in HPI: all other systems reviewed are Neg Objective Alert: Yes [place]: Person Mood: Calm Affect: Flat Memory Intact: Comment (impaired) Hallucinations: Other (none) Delusions: No Delusion Type: Other (internally preoccupied) Suicidal: Ideation (denies) Homicidal: Ideation (denies) Insight/Judgment Very poor Vitals/IOs Vital Signs Date Time Temp Pulse Resp B/P Pulse Ox O2 Delivery O2 Flow Rate FiO2 02/17/17 06:00 96.4 72 17 134/80 95 Intake and Output 02/16/17 02/16/17 02/17/17 08:00 16:00 00:00 Intake Total 360 ml Balance 360 ml Assessment & Plan Problem List: (1) Dementia of Alzheimer's type with behavioral disturbance ICD Code: G30.8 (2) DEMENTIA IN OTH DISEASES CLASSD ELSWHR W BEHAVIORAL DISTURB ICD Code: F02.81 Assessment & Plan Estimated LOS: days patient continues demented confused though no significant behavioral problems recently Justification for Cont. Inpt. At this time patient will decompensate if placed in a lower level of care Discharge Planning To be determined Request HC Surrog/Guard Advoc?: Yes Problem Qualifiers (1) Dementia of Alzheimer's type with behavioral disturbance: Qualified Code: G30.8 - Alzheimer's dementia with behavioral disturbance, unspecified timing of dementia onset Bharath Espinal MD Feb 17, 2017 15:48
[2017-02-17 18:00] VITALS: BP 147/79; PULSE 78; RESP 18; TEMP 97.6; O2SAT 97
[2017-02-18 05:33] VITALS: BP 140/71; PULSE 61; RESP 16; TEMP 97; O2SAT 96
[2017-02-18] MEDS: busPIRone HCL 5 MG TAB PO SCH ×2 (09:06→22:26)
[2017-02-18] MEDS: METOPROLOL SUCCINATE 25 MG EXTENDED RELEASE TAB PO SCH (09:06)
[2017-02-18] MEDS: PRAVASTATIN SOD 20 MG TAB PO SCH (09:06)
[2017-02-18] MEDS: ASPIRIN EC 81 MG TABEC PO SCH (09:06)
[2017-02-18] MEDS: CHOLECALCIFEROL (VIT D3) 1000 UNIT TAB PO SCH (09:07)
[2017-02-18] MEDS: CYANOCOBALAMIN 1,000 MCG TAB PO SCH (09:07)
[2017-02-18] MEDS: LOSARTAN 50 MG TAB PO SCH (09:08)
[2017-02-18] MEDS: QUEtiapine FUMARATE 25 MG TAB PO SCH ×3 (09:09→22:27)
[2017-02-18] MEDS: PILL SPLITTER OTHER PRN (09:17)
--- NOTE | 2017-02-18 10:39 | HHI.PYPN ---
Subjective Remarks Patient seen in dayroom the floor staff, patient sitting in Saranya chair, chart review, patient compliant medication. Patient calm no behavior problems noted at this time, continues diffusely confused disoriented. For now continue treatment Review of Systems Except as stated in HPI: all other systems reviewed are Neg Objective Alert: Yes [place]: Person Mood: Calm Affect: Flat Memory Intact: Comment (impaired) Hallucinations: Other (none) Delusions: No Delusion Type: Other (internally preoccupied) Suicidal: Ideation (denies) Homicidal: Ideation (denies) Insight/Judgment Very poor Vitals/IOs Vital Signs Date Time Temp Pulse Resp B/P Pulse Ox O2 Delivery O2 Flow Rate FiO2 02/18/17 05:33 97.0 61 16 140/71 96 Intake and Output 02/17/17 02/17/17 02/17/17 07:59 15:59 23:59 Intake Total 480 ml 240 ml 840 ml Balance 480 ml 240 ml 840 ml Assessment & Plan Problem List: (1) Dementia of Alzheimer's type with behavioral disturbance ICD Code: G30.8 (2) DEMENTIA IN OTH DISEASES CLASSD ELSWHR W BEHAVIORAL DISTURB ICD Code: F02.81 Assessment & Plan Estimated LOS: days patient is demented confused though no significant behavioral problems at this time for now continue treatment Justification for Cont. Inpt. At this time patient may decompensate has not placed in an appropriate level of care Discharge Planning Determined Request HC Surrog/Guard Advoc?: Yes Problem Qualifiers (1) Dementia of Alzheimer's type with behavioral disturbance: Qualified Code: G30.8 - Alzheimer's dementia with behavioral disturbance, unspecified timing of dementia onset Bharath Espinal MD Feb 18, 2017 10:39
[2017-02-18 17:57] VITALS: BP 132/77; PULSE 68; RESP 18; TEMP 96.4
[2017-02-19 06:05] VITALS: BP 132/70; PULSE 73; RESP 18; TEMP 97.9; O2SAT 94
[2017-02-19] MEDS: CHOLECALCIFEROL (VIT D3) 1000 UNIT TAB PO SCH (09:58)
[2017-02-19] MEDS: CYANOCOBALAMIN 1,000 MCG TAB PO SCH (09:59)
[2017-02-19] MEDS: ASPIRIN EC 81 MG TABEC PO SCH (10:00)
[2017-02-19] MEDS: QUEtiapine FUMARATE 25 MG TAB PO SCH ×3 (10:00→21:03)
[2017-02-19] MEDS: busPIRone HCL 5 MG TAB PO SCH ×2 (10:00→21:03)
[2017-02-19] MEDS: PRAVASTATIN SOD 20 MG TAB PO SCH (10:00)
[2017-02-19] MEDS: METOPROLOL SUCCINATE 25 MG EXTENDED RELEASE TAB PO SCH (10:00)
[2017-02-19] MEDS: LOSARTAN 50 MG TAB PO SCH (10:05)
--- NOTE | 2017-02-19 15:35 | HHI.PYPN ---
Subjective Remarks Patient seen in dayroom with lower staff, chart review, patient compliant medication., patient nodding often napping somewhat arousable to alert confused disoriented. Compliant medication. Review of Systems Except as stated in HPI: all other systems reviewed are Neg Objective Alert: Yes [place]: Person Mood: Calm Affect: Flat Memory Intact: Comment (impaired) Hallucinations: Other (none) Delusions: No Delusion Type: Other (internally preoccupied) Suicidal: Ideation (denies) Homicidal: Ideation (denies) Insight/Judgment Very poor Vitals/IOs Vital Signs Date Time Temp Pulse Resp B/P Pulse Ox O2 Delivery O2 Flow Rate FiO2 02/19/17 06:05 97.9 73 18 132/70 94 Intake and Output 02/18/17 02/18/17 02/18/17 07:59 15:59 23:59 Intake Total 170 ml 120 ml 240 ml Balance 170 ml 120 ml 240 ml Assessment & Plan Problem List: (1) Dementia of Alzheimer's type with behavioral disturbance ICD Code: G30.8 (2) DEMENTIA IN OTH DISEASES CLASSD ELSWHR W BEHAVIORAL DISTURB ICD Code: F02.81 Assessment & Plan Estimated LOS: days patient continues confused demented, though no significant behavioral problems, compliant medications Justification for Cont. Inpt. At this time patient will decompensate now placed in an appropriate level of care Discharge Planning To be determined Request HC Surrog/Guard Advoc?: Yes Problem Qualifiers (1) Dementia of Alzheimer's type with behavioral disturbance: Qualified Code: G30.8 - Alzheimer's dementia with behavioral disturbance, unspecified timing of dementia onset Bharath Espinal MD Feb 19, 2017 15:35
[2017-02-19 17:30] VITALS: BP 143/83; PULSE 88; RESP 16; TEMP 97.3; O2SAT 96
[2017-02-20 07:06] VITALS: BP 140/77; PULSE 76; RESP 15; TEMP 98.2; O2SAT 96
[2017-02-20] MEDS: LOSARTAN 50 MG TAB PO SCH (08:18)
[2017-02-20] MEDS: PRAVASTATIN SOD 20 MG TAB PO SCH (08:18)
[2017-02-20] MEDS: METOPROLOL SUCCINATE 25 MG EXTENDED RELEASE TAB PO SCH (08:18)
[2017-02-20] MEDS: CHOLECALCIFEROL (VIT D3) 1000 UNIT TAB PO SCH (08:18)
[2017-02-20] MEDS: busPIRone HCL 5 MG TAB PO SCH ×2 (08:18→21:40)
[2017-02-20] MEDS: CYANOCOBALAMIN 1,000 MCG TAB PO SCH (08:19)
[2017-02-20] MEDS: ASPIRIN EC 81 MG TABEC PO SCH (08:19)
[2017-02-20] MEDS: QUEtiapine FUMARATE 25 MG TAB PO SCH ×3 (08:21→21:40)
--- NOTE | 2017-02-20 15:22 | HHI.PYPN ---
Subjective Remarks Pt seen and discussed with staff. No behavioral problems on unit. He has been cooperative and pleasant. Compliant with medications. He has been napping most of afternoon but does arouse easily. No SI/HI Objective Alert: Yes [place]: Person Mood: Calm Affect: Flat Memory Intact: Comment (impaired) Hallucinations: Other (none) Delusions: No Delusion Type: Other (internally preoccupied) Suicidal: Ideation (denies) Homicidal: Ideation (denies) Insight/Judgment poor Vitals/IOs Vital Signs Date Time Temp Pulse Resp B/P Pulse Ox O2 Delivery O2 Flow Rate FiO2 02/20/17 07:06 98.2 76 15 140/77 96 Intake and Output 02/19/17 02/19/17 02/20/17 08:00 16:00 00:00 Intake Total 120 ml 1080 ml 1080 ml Balance 120 ml 1080 ml 1080 ml Assessment & Plan Problem List: (1) Dementia of Alzheimer's type with behavioral disturbance ICD Code: G30.8 (2) DEMENTIA IN OTH DISEASES CLASSD ELSWHR W BEHAVIORAL DISTURB ICD Code: F02.81 Assessment & Plan Cotninue current tx plan. Estimated LOS: days Justification for Cont. Inpt. risk of decompensation Request HC Surrog/Guard Advoc?: Yes Problem Qualifiers (1) Dementia of Alzheimer's type with behavioral disturbance: Qualified Code: G30.8 - Alzheimer's dementia with behavioral disturbance, unspecified timing of dementia onset Ramona Garcia MD Feb 20, 2017 15:22
[2017-02-20 18:00] VITALS: BP 127/77; PULSE 86; RESP 16; TEMP 97.6; O2SAT 95
[2017-02-21 06:00] VITALS: BP 138/78; PULSE 68; RESP 18; TEMP 97.8; O2SAT 98
[2017-02-21] MEDS: CYANOCOBALAMIN 1,000 MCG TAB PO SCH (09:29)
[2017-02-21] MEDS: LOSARTAN 50 MG TAB PO SCH (09:29)
[2017-02-21] MEDS: CHOLECALCIFEROL (VIT D3) 1000 UNIT TAB PO SCH (09:30)
[2017-02-21] MEDS: PRAVASTATIN SOD 20 MG TAB PO SCH (09:30)
[2017-02-21] MEDS: busPIRone HCL 5 MG TAB PO SCH ×2 (09:30→21:27)
[2017-02-21] MEDS: METOPROLOL SUCCINATE 25 MG EXTENDED RELEASE TAB PO SCH (09:30)
[2017-02-21] MEDS: ASPIRIN EC 81 MG TABEC PO SCH (09:30)
[2017-02-21] MEDS: QUEtiapine FUMARATE 25 MG TAB PO SCH ×3 (09:31→21:27)
--- NOTE | 2017-02-21 16:51 | HHI.PYPN ---
Subjective Remarks Pt seen and discussed with staff. No behavioral problems on unit. He is compliant and cooperative with care. Tolerating medications without side effects. Objective Alert: Yes [place]: Person Mood: Calm Affect: Flat Memory Intact: Comment (impaired) Hallucinations: Other (none) Delusions: No Delusion Type: Other (internally preoccupied) Suicidal: Ideation (denies) Homicidal: Ideation (denies) Insight/Judgment poor Vitals/IOs Vital Signs Date Time Temp Pulse Resp B/P Pulse Ox O2 Delivery O2 Flow Rate FiO2 02/21/17 06:00 97.8 68 18 138/78 98 Intake and Output 02/20/17 02/20/17 02/21/17 08:00 16:00 00:00 Intake Total 240 ml 1080 ml Balance 240 ml 1080 ml Assessment & Plan Problem List: (1) Dementia of Alzheimer's type with behavioral disturbance ICD Code: G30.8 (2) DEMENTIA IN OTH DISEASES CLASSD ELSWHR W BEHAVIORAL DISTURB ICD Code: F02.81 Assessment & Plan Continue current tx plan Estimated LOS: days Justification for Cont. Inpt. risk of decompensation Request HC Surrog/Guard Advoc?: Yes Problem Qualifiers (1) Dementia of Alzheimer's type with behavioral disturbance: Qualified Code: G30.8 - Alzheimer's dementia with behavioral disturbance, unspecified timing of dementia onset Ramona Garcia MD Feb 21, 2017 16:51
[2017-02-21 18:46] VITALS: BP 140/86; PULSE 70; RESP 16; TEMP 97.8; O2SAT 96
[2017-02-22 07:16] VITALS: BP 144/78; PULSE 65; RESP 17; TEMP 98; O2SAT 97
[2017-02-22] MEDS: CYANOCOBALAMIN 1,000 MCG TAB PO SCH (08:27)
[2017-02-22] MEDS: ASPIRIN EC 81 MG TABEC PO SCH (08:28)
[2017-02-22] MEDS: CHOLECALCIFEROL (VIT D3) 1000 UNIT TAB PO SCH (08:28)
[2017-02-22] MEDS: busPIRone HCL 5 MG TAB PO SCH ×2 (08:28→19:52)
[2017-02-22] MEDS: METOPROLOL SUCCINATE 25 MG EXTENDED RELEASE TAB PO SCH (08:28)
[2017-02-22] MEDS: QUEtiapine FUMARATE 25 MG TAB PO SCH ×3 (08:28→19:52)
[2017-02-22] MEDS: PRAVASTATIN SOD 20 MG TAB PO SCH (08:28)
[2017-02-22] MEDS: LOSARTAN 50 MG TAB PO SCH (08:28)
--- NOTE | 2017-02-22 11:18 | PD.TTN ---
Present for Treatment Team Treatment Team Staff: Provider (Dr. Espinal), Psych Therapist (HAKEEM Fishman), Other Clinician (Regi, debby. therapy) Patient Problems 1. Discharge planning 2. Medication compliance 3. Knowledge deficit 4. Lack of coping skills Progress Toward Goals Provider Input: Dr. Espinal requested an update regarding patient's behavioral status, medication compliance, progress, and plan for discharge. Psych Therapist Input: Counselor reported the patient remanis compliant with medications and in good beahvioral control today. Patient mental status remains unchanged and placement remains problematic related to patient's previous behaviors. Counselor reported the patient's [employer] insurance rep faxed this counselor a list of placement options and counselor will fax patient's packet to each facility on the list. Other Clinican Input: Regi reported the patient occasioanlly participates in recreational groups. Documentation Scribe: HAKEEM Fishman Date Resolved: Feb 22, 2017 Madyson Stanford Feb 22, 2017 11:18
--- NOTE | 2017-02-22 15:14 | HHI.PYPN ---
Subjective Remarks Patient seen in day room with nurse Juan Alberto and medical student Elsa, chart review, patient compliant medications. Patient dosing somewhat at this time though arousable to alert confused and somewhat labile. But overall no significant behavioral problems. Review of Systems Except as stated in HPI: all other systems reviewed are Neg Objective Alert: Yes [place]: Person Mood: Calm Affect: Flat Memory Intact: Comment (impaired) Hallucinations: Other (none) Delusions: No Delusion Type: Other (internally preoccupied) Suicidal: Ideation (denies) Homicidal: Ideation (denies) Insight/Judgment Very poor Vitals/IOs Vital Signs Date Time Temp Pulse Resp B/P Pulse Ox O2 Delivery O2 Flow Rate FiO2 02/22/17 07:16 98.0 65 17 144/78 97 Intake and Output 02/21/17 02/21/17 02/22/17 08:00 16:00 00:00 Intake Total 600 ml 1920 ml Balance 600 ml 1920 ml Assessment & Plan Problem List: (1) Dementia of Alzheimer's type with behavioral disturbance ICD Code: G30.8 (2) DEMENTIA IN OTH DISEASES CLASSD ELSWHR W BEHAVIORAL DISTURB ICD Code: F02.81 Assessment & Plan Estimated LOS: days patient continues confused and demented, though no significant behavioral problems Justification for Cont. Inpt. At this time patient may decompensate if not placed in an appropriate level of care Discharge Planning To be determined Request HC Surrog/Guard Advoc?: Yes Problem Qualifiers (1) Dementia of Alzheimer's type with behavioral disturbance: Qualified Code: G30.8 - Alzheimer's dementia with behavioral disturbance, unspecified timing of dementia onset Bharath Espinal MD Feb 22, 2017 15:14
[2017-02-22 18:40] VITALS: BP 114/92; PULSE 70; RESP 18; TEMP 96.8; O2SAT 95
[2017-02-23 05:43] VITALS: BP 125/70; PULSE 62; RESP 17; TEMP 98.2; O2SAT 98
[2017-02-23] MEDS: PRAVASTATIN SOD 20 MG TAB PO SCH (08:24)
[2017-02-23] MEDS: CHOLECALCIFEROL (VIT D3) 1000 UNIT TAB PO SCH (08:24)
[2017-02-23] MEDS: busPIRone HCL 5 MG TAB PO SCH ×2 (08:24→20:40)
[2017-02-23] MEDS: CYANOCOBALAMIN 1,000 MCG TAB PO SCH (08:24)
[2017-02-23] MEDS: QUEtiapine FUMARATE 25 MG TAB PO SCH ×4 (08:24→20:44)
[2017-02-23] MEDS: METOPROLOL SUCCINATE 25 MG EXTENDED RELEASE TAB PO SCH (08:24)
[2017-02-23] MEDS: LOSARTAN 50 MG TAB PO SCH (08:25)
[2017-02-23] MEDS: ASPIRIN EC 81 MG TABEC PO SCH (08:25)
--- NOTE | 2017-02-23 13:01 | HHI.PYPN ---
Subjective Remarks Patient seen in the day room with medical student Elsa, chart reviewed, patient compliant medication, patient calm continues diffusely confused and disoriented, for now continue treatment Review of Systems Except as stated in HPI: all other systems reviewed are Neg Objective Alert: Yes [place]: Person Mood: Calm Affect: Flat Memory Intact: Comment (impaired) Hallucinations: Other (none) Delusions: No Delusion Type: Other (internally preoccupied) Suicidal: Ideation (denies) Homicidal: Ideation (denies) Insight/Judgment Very poor Vitals/IOs Vital Signs Date Time Temp Pulse Resp B/P Pulse Ox O2 Delivery O2 Flow Rate FiO2 02/23/17 05:43 98.2 62 17 125/70 98 Intake and Output 02/22/17 02/22/17 02/23/17 08:00 16:00 00:00 Intake Total 360 ml 120 ml Balance 360 ml 120 ml Assessment & Plan Problem List: (1) Dementia of Alzheimer's type with behavioral disturbance ICD Code: G30.8 (2) DEMENTIA IN OTH DISEASES CLASSD ELSWHR W BEHAVIORAL DISTURB ICD Code: F02.81 Assessment & Plan Estimated LOS: days patient continues demented and confused, no significant behavior problems so far today Justification for Cont. Inpt. At this time patient will decompensate placed in a lower level of care Discharge Planning To be determined Request HC Surrog/Guard Advoc?: Yes Problem Qualifiers (1) Dementia of Alzheimer's type with behavioral disturbance: Qualified Code: G30.8 - Alzheimer's dementia with behavioral disturbance, unspecified timing of dementia onset Bharath Espinal MD Feb 23, 2017 13:01
[2017-02-23 19:58] VITALS: BP 115/56; PULSE 82; RESP 18; TEMP 98.5; O2SAT 96
[2017-02-24 05:11] VITALS: BP 125/60; PULSE 65; RESP 18; TEMP 96.8; O2SAT 99
[2017-02-24] MEDS: ASPIRIN EC 81 MG TABEC PO SCH (08:19)
[2017-02-24] MEDS: busPIRone HCL 5 MG TAB PO SCH ×2 (08:19→20:55)
[2017-02-24] MEDS: LOSARTAN 50 MG TAB PO SCH (08:19)
[2017-02-24] MEDS: CHOLECALCIFEROL (VIT D3) 1000 UNIT TAB PO SCH (08:19)
[2017-02-24] MEDS: METOPROLOL SUCCINATE 25 MG EXTENDED RELEASE TAB PO SCH (08:20)
[2017-02-24] MEDS: PRAVASTATIN SOD 20 MG TAB PO SCH (08:20)
[2017-02-24] MEDS: CYANOCOBALAMIN 1,000 MCG TAB PO SCH (08:22)
[2017-02-24] MEDS: QUEtiapine FUMARATE 25 MG TAB PO SCH ×2 (14:03→14:59)
--- NOTE | 2017-02-24 16:18 | HHI.PYPN ---
Subjective Remarks Patient seen in day room with nurse Isamar, chart reviewed, patient compliant medication. Somewhat calmer today, continues confused disoriented Review of Systems Except as stated in HPI: all other systems reviewed are Neg Objective Alert: Yes [place]: Person Mood: Calm Affect: Flat Memory Intact: Comment (impaired) Hallucinations: Other (none) Delusions: No Delusion Type: Other (internally preoccupied) Suicidal: Ideation (denies) Homicidal: Ideation (denies) Insight/Judgment Very poor Vitals/IOs Vital Signs Date Time Temp Pulse Resp B/P Pulse Ox O2 Delivery O2 Flow Rate FiO2 02/24/17 05:11 96.8 65 18 125/60 99 Intake and Output 02/23/17 02/23/17 02/24/17 08:00 16:00 00:00 Intake Total 480 ml 480 ml Balance 480 ml 480 ml Assessment & Plan Problem List: (1) Dementia of Alzheimer's type with behavioral disturbance ICD Code: G30.8 (2) 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 Inpt. This time patient will decompensate placed in a lower level of care Discharge Planning To be determined Request HC Surrog/Guard Advoc?: Yes Problem Qualifiers (1) Dementia of Alzheimer's type with behavioral disturbance: Qualified Code: G30.8 - Alzheimer's dementia with behavioral disturbance, unspecified timing of dementia onset Bharath Espinal MD Feb 24, 2017 16:18
[2017-02-24 18:00] VITALS: BP 130/75; PULSE 71; RESP 16; TEMP 97.7; O2SAT 96
[2017-02-25 06:00] VITALS: BP 136/82; PULSE 70; RESP 19; TEMP 99.6; O2SAT 97
[2017-02-25] MEDS: CYANOCOBALAMIN 1,000 MCG TAB PO SCH (08:40)
[2017-02-25] MEDS: LOSARTAN 50 MG TAB PO SCH (08:40)
[2017-02-25] MEDS: METOPROLOL SUCCINATE 25 MG EXTENDED RELEASE TAB PO SCH (08:40)
[2017-02-25] MEDS: ASPIRIN EC 81 MG TABEC PO SCH (08:40)
[2017-02-25] MEDS: busPIRone HCL 5 MG TAB PO SCH ×2 (08:40→20:57)
[2017-02-25] MEDS: PRAVASTATIN SOD 20 MG TAB PO SCH (08:40)
[2017-02-25] MEDS: CHOLECALCIFEROL (VIT D3) 1000 UNIT TAB PO SCH (08:40)
[2017-02-25] MEDS: QUEtiapine FUMARATE 25 MG TAB PO SCH ×3 (08:43→20:58)
--- NOTE | 2017-02-25 11:17 | HHI.PYPN ---
Subjective Remarks Patient seen in day room with nurse Isamar, chart reviewed, patient compliant medications. Patient calm with me at this time continues diffusely confused. He has had no significant behavioral problems so far today Review of Systems Except as stated in HPI: all other systems reviewed are Neg Objective Alert: Yes [place]: Person Mood: Calm Affect: Flat Memory Intact: Comment (impaired) Hallucinations: Other (none) Delusions: No Delusion Type: Other (internally preoccupied) Suicidal: Ideation (denies) Homicidal: Ideation (denies) Insight/Judgment Poor Vitals/IOs Vital Signs Date Time Temp Pulse Resp B/P Pulse Ox O2 Delivery O2 Flow Rate FiO2 02/25/17 06:00 99.6 70 19 136/82 97 Intake and Output 02/24/17 02/24/17 02/25/17 08:00 16:00 00:00 Intake Total 240 ml 240 ml 720 ml Balance 240 ml 240 ml 720 ml Assessment & Plan Problem List: (1) Dementia of Alzheimer's type with behavioral disturbance ICD Code: G30.8 (2) DEMENTIA IN OTH DISEASES CLASSD ELSWHR W BEHAVIORAL DISTURB ICD Code: F02.81 Assessment & Plan Estimated LOS: days patient continues quite confused disoriented demented, no behavior problems noted today Compliant medications Justification for Cont. Inpt. At this time patient may decompensate if not placed in an appropriate level of care Request HC Surrog/Guard Advoc?: Yes Problem Qualifiers (1) Dementia of Alzheimer's type with behavioral disturbance: Qualified Code: G30.8 - Alzheimer's dementia with behavioral disturbance, unspecified timing of dementia onset Bharath Espinal MD Feb 25, 2017 11:17
[2017-02-25 17:40] VITALS: BP 142/91; PULSE 74; RESP 19; TEMP 97.6; O2SAT 98
[2017-02-26 06:00] VITALS: BP 135/81; PULSE 68; RESP 19; TEMP 97.9; O2SAT 96
[2017-02-26] MEDS: PRAVASTATIN SOD 20 MG TAB PO SCH (09:21)
[2017-02-26] MEDS: busPIRone HCL 5 MG TAB PO SCH ×2 (09:21→21:40)
[2017-02-26] MEDS: ASPIRIN EC 81 MG TABEC PO SCH (09:21)
[2017-02-26] MEDS: METOPROLOL SUCCINATE 25 MG EXTENDED RELEASE TAB PO SCH (09:21)
[2017-02-26] MEDS: QUEtiapine FUMARATE 25 MG TAB PO SCH ×3 (09:21→21:40)
[2017-02-26] MEDS: LOSARTAN 50 MG TAB PO SCH (09:21)
[2017-02-26] MEDS: CHOLECALCIFEROL (VIT D3) 1000 UNIT TAB PO SCH (09:21)
[2017-02-26] MEDS: CYANOCOBALAMIN 1,000 MCG TAB PO SCH (09:21)
--- NOTE | 2017-02-26 11:30 | HHI.PYPN ---
Subjective Remarks Patient seen in dayroom with floor staff, chart review, patient compliant medications. Staff states patient is doing well today, remains calm and diffusely confused. For now continue treatment Review of Systems Except as stated in HPI: all other systems reviewed are Neg Objective Alert: Yes [place]: Person Mood: Calm Affect: Flat Memory Intact: Comment (impaired) Hallucinations: Other (none) Delusions: No Delusion Type: Other (internally preoccupied) Suicidal: Ideation (denies) Homicidal: Ideation (denies) Insight/Judgment Very poor Vitals/IOs Vital Signs Date Time Temp Pulse Resp B/P Pulse Ox O2 Delivery O2 Flow Rate FiO2 02/26/17 06:00 97.9 68 19 135/81 96 Intake and Output 02/25/17 02/25/17 02/26/17 08:00 16:00 00:00 Intake Total 240 ml 960 ml Balance 240 ml 960 ml Assessment & Plan Problem List: (1) Dementia of Alzheimer's type with behavioral disturbance ICD Code: G30.8 (2) DEMENTIA IN OTH DISEASES CLASSD ELSWHR W BEHAVIORAL DISTURB ICD Code: F02.81 Assessment & Plan Estimated LOS: days patient continues confused and demented though no significant behavior problems at this time, compliant medications Justification for Cont. Inpt. At this time patient would decompensate if not placed in an appropriate level of care Discharge Planning To be determined Request HC Surrog/Guard Advoc?: Yes Problem Qualifiers (1) Dementia of Alzheimer's type with behavioral disturbance: Qualified Code: G30.8 - Alzheimer's dementia with behavioral disturbance, unspecified timing of dementia onset Bharath Espinal MD Feb 26, 2017 11:30
[2017-02-26 17:32] VITALS: BP 130/81; PULSE 71; RESP 18; TEMP 97; O2SAT 95
[2017-02-27 06:27] VITALS: BP 131/82; PULSE 73; RESP 17; TEMP 98.3; O2SAT 95
[2017-02-27] MEDS: QUEtiapine FUMARATE 25 MG TAB PO SCH ×3 (08:00→20:25)
[2017-02-27] MEDS: CHOLECALCIFEROL (VIT D3) 1000 UNIT TAB PO SCH (09:37)
[2017-02-27] MEDS: busPIRone HCL 5 MG TAB PO SCH ×2 (09:37→20:25)
[2017-02-27] MEDS: CYANOCOBALAMIN 1,000 MCG TAB PO SCH (09:38)
[2017-02-27] MEDS: LOSARTAN 50 MG TAB PO SCH (09:38)
[2017-02-27] MEDS: PRAVASTATIN SOD 20 MG TAB PO SCH (09:38)
[2017-02-27] MEDS: METOPROLOL SUCCINATE 25 MG EXTENDED RELEASE TAB PO SCH (09:38)
[2017-02-27] MEDS: ASPIRIN EC 81 MG TABEC PO SCH (09:38)
--- NOTE | 2017-02-27 13:26 | HHI.PYPN ---
Subjective Remarks Patient was seen and case discussed with nursing. Patient is alert and oriented 1. Eating and sleeping well per nursing. He picks at the air at times and remains internally preoccupied. Compliant with medications, behaving well on the unit Objective Alert: Yes [place]: Person Mood: Calm Affect: Blunted Memory Intact: Comment (impaired) Hallucinations: Other (none) Delusions: No Delusion Type: Other (internally preoccupied) Suicidal: Ideation (denies) Homicidal: Ideation (denies) Insight/Judgment Poor Vitals/IOs Vital Signs Date Time Temp Pulse Resp B/P Pulse Ox O2 Delivery O2 Flow Rate FiO2 02/27/17 06:27 98.3 73 17 131/82 95 Intake and Output 02/26/17 02/26/17 02/27/17 08:00 16:00 00:00 Intake Total 240 ml 960 ml Balance 240 ml 960 ml Assessment & Plan Problem List: (1) Dementia of Alzheimer's type with behavioral disturbance ICD Code: G30.8 (2) DEMENTIA IN OTH DISEASES CLASSD ELSWHR W BEHAVIORAL DISTURB ICD Code: F02.81 Assessment & Plan Continue current treatment plan Justification for Cont. Inpt. Patient will decompensate in a less restrictive setting Request HC Surrog/Guard Advoc?: Yes Problem Qualifiers (1) Dementia of Alzheimer's type with behavioral disturbance: Qualified Code: G30.8 - Alzheimer's dementia with behavioral disturbance, unspecified timing of dementia onset Omkar Lazcano DO Feb 27, 2017 13:26
[2017-02-27 20:00] VITALS: BP 145/79; PULSE 76; RESP 18; TEMP 97.5; O2SAT 96
[2017-02-28 06:01] VITALS: BP 131/77; PULSE 70; RESP 22; TEMP 97.8; O2SAT 94
[2017-02-28] MEDS: CYANOCOBALAMIN 1,000 MCG TAB PO SCH (09:00)
[2017-02-28] MEDS: LOSARTAN 50 MG TAB PO SCH (09:49)
[2017-02-28] MEDS: busPIRone HCL 5 MG TAB PO SCH ×2 (09:49→20:33)
[2017-02-28] MEDS: PRAVASTATIN SOD 20 MG TAB PO SCH (09:52)
[2017-02-28] MEDS: QUEtiapine FUMARATE 25 MG TAB PO SCH ×3 (09:52→20:33)
[2017-02-28] MEDS: CHOLECALCIFEROL (VIT D3) 1000 UNIT TAB PO SCH (09:52)
[2017-02-28] MEDS: ASPIRIN EC 81 MG TABEC PO SCH (09:52)
[2017-02-28] MEDS: METOPROLOL SUCCINATE 25 MG EXTENDED RELEASE TAB PO SCH (09:52)
--- NOTE | 2017-02-28 11:37 | HHI.PYPN ---
Subjective Remarks Patient was seen and case discussed with nursing. Patient is pleasant and cooperative with exam. He is awake and alert and oriented 1. Appears less internally preoccupied. No outbursts. Denies suicidal ideation intent or plan Objective Alert: Yes [place]: Person Mood: Calm Affect: Restricted Memory Intact: Comment (impaired) Hallucinations: Other (none) Delusions: No Delusion Type: Other (internally preoccupied) Suicidal: Ideation (denies) Homicidal: Ideation (denies) Insight/Judgment Poor Vitals/IOs Vital Signs Date Time Temp Pulse Resp B/P Pulse Ox O2 Delivery O2 Flow Rate FiO2 02/28/17 06:01 97.8 70 22 131/77 94 Intake and Output 02/27/17 02/27/17 02/28/17 08:00 16:00 00:00 Intake Total 480 ml 960 ml Balance 480 ml 960 ml Assessment & Plan Problem List: (1) Dementia of Alzheimer's type with behavioral disturbance ICD Code: G30.8 (2) DEMENTIA IN OTH DISEASES CLASSD ELSWHR W BEHAVIORAL DISTURB ICD Code: F02.81 Assessment & Plan Continue current treatment plan Justification for Cont. Inpt. Patient will decompensate in a less restrictive setting Request HC Surrog/Guard Advoc?: Yes Problem Qualifiers (1) Dementia of Alzheimer's type with behavioral disturbance: Qualified Code: G30.8 - Alzheimer's dementia with behavioral disturbance, unspecified timing of dementia onset Omkar Lazcano DO Feb 28, 2017 11:37
[2017-02-28 18:10] VITALS: BP 137/84; PULSE 85; TEMP 98.6; O2SAT 96
[2017-03-01 05:43] VITALS: BP 146/67; PULSE 70; RESP 18; TEMP 98.6; O2SAT 97
[2017-03-01] MEDS: METOPROLOL SUCCINATE 25 MG EXTENDED RELEASE TAB PO SCH (08:43)
[2017-03-01] MEDS: busPIRone HCL 5 MG TAB PO SCH ×2 (08:43→21:00)
[2017-03-01] MEDS: QUEtiapine FUMARATE 25 MG TAB PO SCH ×3 (08:43→21:14)
[2017-03-01] MEDS: PRAVASTATIN SOD 20 MG TAB PO SCH (08:43)
[2017-03-01] MEDS: ASPIRIN EC 81 MG TABEC PO SCH (08:43)
[2017-03-01] MEDS: CYANOCOBALAMIN 1,000 MCG TAB PO SCH (08:43)
[2017-03-01] MEDS: LOSARTAN 50 MG TAB PO SCH (08:43)
[2017-03-01] MEDS: CHOLECALCIFEROL (VIT D3) 1000 UNIT TAB PO SCH (08:43)
--- NOTE | 2017-03-01 13:58 | HHI.PYPN ---
Subjective Remarks Patient discussed with treatment team, patient been seen on unit with nurse Chanel, and medical students Doretha and . Chart review, patient compliant medication. Patient continues no significant behavioral problems. Continues significantly confused and demented. Review of Systems Except as stated in HPI: all other systems reviewed are Neg Objective Alert: Yes [place]: Person Mood: Calm Affect: Restricted Memory Intact: Comment (impaired) Hallucinations: Other (none) Delusions: No Delusion Type: Other (internally preoccupied) Suicidal: Ideation (denies) Homicidal: Ideation (denies) Insight/Judgment Very poor Vitals/IOs Vital Signs Date Time Temp Pulse Resp B/P Pulse Ox O2 Delivery O2 Flow Rate FiO2 03/01/17 05:43 98.6 70 18 146/67 97 Intake and Output 02/28/17 02/28/17 03/01/17 08:00 16:00 00:00 Intake Total 600 ml 1680 ml Balance 600 ml 1680 ml Assessment & Plan Problem List: (1) Dementia of Alzheimer's type with behavioral disturbance ICD Code: G30.8 (2) DEMENTIA IN OTH DISEASES CLASSD ELSWHR W BEHAVIORAL DISTURB ICD Code: F02.81 Assessment & Plan Estimated LOS: days patient remains confused and demented though no significant behavioral problems at this time Justification for Cont. Inpt. At this time patient may decompensate now placed in an appropriate level of care Discharge Planning To be determined Request HC Surrog/Guard Advoc?: Yes Problem Qualifiers (1) Dementia of Alzheimer's type with behavioral disturbance: Qualified Code: G30.8 - Alzheimer's dementia with behavioral disturbance, unspecified timing of dementia onset Bharath Espinal MD Mar 01, 2017 13:58
--- NOTE | 2017-03-01 15:47 | PD.TTN ---
Present for Treatment Team Treatment Team Staff: Provider (Dr Bae;luc ), Nurse (Chanel), Psych Therapist (Amina ), Occupational Therapist (Veronica) Patient Problems 1. Discharge planning 2. Medication compliance 3. Knowledge deficit 4. Lack of coping skills Progress Toward Goals Provider Input: difficult to place Nurse Input: clear in responds and talking still easy aggitated when doing hygiene Psych Therapist Input: met with family Wednesday - they will go by facility in [place] next week and then will let us know if they have an opening for us to refer to them tried [place] but still denials locally called last week in [place] area and no luck last week Occupational Therapist Input: present but limited in participation Amina Elias [employer] Mar 01, 2017 15:47
[2017-03-01 18:27] VITALS: BP 165/96; PULSE 79; RESP 16; TEMP 98.6; O2SAT 97
[2017-03-01] MEDS: MELATONIN 5 MG TAB PO PRN (21:13)
[2017-03-01] MEDS: hydrOXYzine HCL 50 MG TAB PO PRN (21:13)
[2017-03-02 05:35] VITALS: BP 154/89; PULSE 70; RESP 19; TEMP 98.1; O2SAT 98
[2017-03-02] MEDS: METOPROLOL SUCCINATE 25 MG EXTENDED RELEASE TAB PO SCH (09:17)
[2017-03-02] MEDS: CHOLECALCIFEROL (VIT D3) 1000 UNIT TAB PO SCH (09:17)
[2017-03-02] MEDS: ASPIRIN EC 81 MG TABEC PO SCH (09:18)
[2017-03-02] MEDS: LOSARTAN 50 MG TAB PO SCH (09:18)
[2017-03-02] MEDS: CYANOCOBALAMIN 1,000 MCG TAB PO SCH (09:18)
[2017-03-02] MEDS: busPIRone HCL 5 MG TAB PO SCH ×2 (09:18→20:53)
[2017-03-02] MEDS: PRAVASTATIN SOD 20 MG TAB PO SCH (09:18)
[2017-03-02] MEDS: QUEtiapine FUMARATE 25 MG TAB PO SCH ×3 (09:31→20:53)
--- NOTE | 2017-03-02 15:41 | HHI.PYPN ---
Subjective Remarks Patient seen on unit with nurse Isamar and medical student , chart review, patient compliant medications. Patient continues diffusely confused disoriented, he has no significant behavioral problem. Placement remains problematic Review of Systems Except as stated in HPI: all other systems reviewed are Neg Objective Alert: Yes [place]: Person Mood: Calm Affect: Restricted Memory Intact: Comment (impaired) Hallucinations: Other (none) Delusions: No Delusion Type: Other (internally preoccupied) Suicidal: Ideation (denies) Homicidal: Ideation (denies) Insight/Judgment Very poor Vitals/IOs Vital Signs Date Time Temp Pulse Resp B/P Pulse Ox O2 Delivery O2 Flow Rate FiO2 03/02/17 05:35 98.1 70 19 154/89 98 Intake and Output 03/01/17 03/01/17 03/02/17 08:00 16:00 00:00 Intake Total 360 ml 1320 ml 2160 ml Balance 360 ml 1320 ml 2160 ml Assessment & Plan Problem List: (1) Dementia of Alzheimer's type with behavioral disturbance ICD Code: G30.8 (2) DEMENTIA IN OTH DISEASES CLASSD ELSWHR W BEHAVIORAL DISTURB ICD Code: F02.81 Assessment & Plan Estimated LOS: days patient remains demented and confused though no significant behavioral problems, compliant medication Justification for Cont. Inpt. At this time patient may decompensate if not placed in an appropriate level of care Discharge Planning To be determined Request HC Surrog/Guard Advoc?: Yes Problem Qualifiers (1) Dementia of Alzheimer's type with behavioral disturbance: Qualified Code: G30.8 - Alzheimer's dementia with behavioral disturbance, unspecified timing of dementia onset Bharath Espinal MD Mar 02, 2017 15:41
[2017-03-02 16:05] VITALS: BP 133/76; PULSE 80; RESP 20; TEMP 97.9; O2SAT 95
[2017-03-03 05:16] VITALS: BP 131/74; PULSE 70; RESP 16; TEMP 99.2; O2SAT 95
[2017-03-03] MEDS: QUEtiapine FUMARATE 25 MG TAB PO SCH ×3 (08:21→21:38)
[2017-03-03] MEDS: METOPROLOL SUCCINATE 25 MG EXTENDED RELEASE TAB PO SCH (09:00)
[2017-03-03] MEDS: CHOLECALCIFEROL (VIT D3) 1000 UNIT TAB PO SCH (09:40)
[2017-03-03] MEDS: LOSARTAN 50 MG TAB PO SCH (09:40)
[2017-03-03] MEDS: busPIRone HCL 5 MG TAB PO SCH ×2 (09:40→21:37)
[2017-03-03] MEDS: PRAVASTATIN SOD 20 MG TAB PO SCH (09:40)
[2017-03-03] MEDS: ASPIRIN EC 81 MG TABEC PO SCH (09:40)
[2017-03-03] MEDS: CYANOCOBALAMIN 1,000 MCG TAB PO SCH (09:40)
--- NOTE | 2017-03-03 11:14 | HHI.PYPN ---
Subjective Remarks Patient seen in day room with family practice resident Joao, chart review, patient compliant medication. Patient calm at this time, no behavior problems, continues diffusely confused disoriented. For now continue treatment Review of Systems Except as stated in HPI: all other systems reviewed are Neg Objective Alert: Yes [place]: Person Mood: Calm Affect: Restricted Memory Intact: Comment (impaired) Hallucinations: Other (none) Delusions: No Delusion Type: Other (internally preoccupied) Suicidal: Ideation (denies) Homicidal: Ideation (denies) Insight/Judgment Very poor Vitals/IOs Vital Signs Date Time Temp Pulse Resp B/P Pulse Ox O2 Delivery O2 Flow Rate FiO2 03/03/17 05:16 99.2 70 16 131/74 95 Intake and Output 03/02/17 03/02/17 03/03/17 08:00 16:00 00:00 Intake Total 600 ml 1320 ml Balance 600 ml 1320 ml Assessment & Plan Problem List: (1) Dementia of Alzheimer's type with behavioral disturbance ICD Code: G30.8 (2) DEMENTIA IN OTH DISEASES CLASSD ELSWHR W BEHAVIORAL DISTURB ICD Code: F02.81 Assessment & Plan Estimated LOS: days patient continues demented confused although no significant behavior problems at this time placement remains problematic Justification for Cont. Inpt. At this time patient may decompensate if not placed in an appropriate level of care Discharge Planning To be determined Request HC Surrog/Guard Advoc?: Yes Problem Qualifiers (1) Dementia of Alzheimer's type with behavioral disturbance: Qualified Code: G30.8 - Alzheimer's dementia with behavioral disturbance, unspecified timing of dementia onset Bharath Espinal MD Mar 03, 2017 11:14
[2017-03-03] MEDS: hydrOXYzine HCL 50 MG TAB PO PRN (17:00)
[2017-03-03] MEDS: ACETAMINOPHEN 325 MG TAB PO PRN (18:42)
[2017-03-03 22:01] VITALS: PULSE 88; RESP 18; TEMP 97.3
[2017-03-04 05:54] VITALS: BP 164/90; PULSE 69; RESP 17; TEMP 97.9; O2SAT 97
[2017-03-04 06:00] VITALS: RESP 18
[2017-03-04] MEDS: LOSARTAN 50 MG TAB PO SCH (09:24)
[2017-03-04] MEDS: CHOLECALCIFEROL (VIT D3) 1000 UNIT TAB PO SCH (09:24)
[2017-03-04] MEDS: QUEtiapine FUMARATE 25 MG TAB PO SCH ×3 (09:24→20:54)
[2017-03-04] MEDS: PRAVASTATIN SOD 20 MG TAB PO SCH (09:25)
[2017-03-04] MEDS: CYANOCOBALAMIN 1,000 MCG TAB PO SCH (09:25)
[2017-03-04] MEDS: METOPROLOL SUCCINATE 25 MG EXTENDED RELEASE TAB PO SCH (09:25)
[2017-03-04] MEDS: ASPIRIN EC 81 MG TABEC PO SCH (09:25)
[2017-03-04] MEDS: busPIRone HCL 5 MG TAB PO SCH ×2 (09:25→20:54)
--- NOTE | 2017-03-04 09:48 | HHI.PYPN ---
Subjective Remarks Patient seen in dayroom with floor staff, chart review, patient compliant medication patient calm napping at times, no behavioral problems noted. Remains confused disoriented. Placement remains problematic Review of Systems Except as stated in HPI: all other systems reviewed are Neg Objective Alert: Yes [place]: Person Mood: Calm Affect: Restricted Memory Intact: Comment (impaired) Hallucinations: Other (none) Delusions: No Delusion Type: Other (internally preoccupied) Suicidal: Ideation (denies) Homicidal: Ideation (denies) Insight/Judgment Very poor Vitals/IOs Vital Signs Date Time Temp Pulse Resp B/P Pulse Ox O2 Delivery O2 Flow Rate FiO2 03/04/17 06:00 18 03/04/17 05:54 97.9 69 164/90 97 Intake and Output 03/03/17 03/03/17 03/04/17 08:00 16:00 00:00 Intake Total 240 ml 600 ml Output Total 1 ml Balance 240 ml 599 ml Assessment & Plan Problem List: (1) Dementia of Alzheimer's type with behavioral disturbance ICD Code: G30.8 (2) DEMENTIA IN OTH DISEASES CLASSD ELSWHR W BEHAVIORAL DISTURB ICD Code: F02.81 Assessment & Plan Estimated LOS: days patient continues confused disoriented demented, but no significant behavioral problems. Placement remains problematic Justification for Cont. Inpt. This time patient may decompensate if not placed in an appropriate level of care Discharge Planning To be determined Request HC Surrog/Guard Advoc?: Yes Problem Qualifiers (1) Dementia of Alzheimer's type with behavioral disturbance: Qualified Code: G30.8 - Alzheimer's dementia with behavioral disturbance, unspecified timing of dementia onset Bharath Espinal MD Mar 04, 2017 09:48
[2017-03-04 19:39] VITALS: BP 143/88; PULSE 70; RESP 17; TEMP 98.1; O2SAT 97
[2017-03-05 06:10] VITALS: BP 160/97; PULSE 69; RESP 18; TEMP 97.6; O2SAT 96
[2017-03-05] MEDS: ASPIRIN EC 81 MG TABEC PO SCH (09:50)
[2017-03-05] MEDS: METOPROLOL SUCCINATE 25 MG EXTENDED RELEASE TAB PO SCH (09:50)
[2017-03-05] MEDS: busPIRone HCL 5 MG TAB PO SCH ×2 (09:50→20:58)
[2017-03-05] MEDS: CHOLECALCIFEROL (VIT D3) 1000 UNIT TAB PO SCH (09:50)
[2017-03-05] MEDS: PRAVASTATIN SOD 20 MG TAB PO SCH (09:50)
[2017-03-05] MEDS: LOSARTAN 50 MG TAB PO SCH (09:51)
[2017-03-05] MEDS: QUEtiapine FUMARATE 25 MG TAB PO SCH ×3 (09:51→20:58)
[2017-03-05] MEDS: CYANOCOBALAMIN 1,000 MCG TAB PO SCH (09:51)
--- NOTE | 2017-03-05 15:17 | HHI.PYPN ---
Subjective Remarks Patient seen in day room with medical student Elsa, chart review, patient compliant medication. Patient continues confused disoriented though no significant behavioral problems. For now continue treatment Review of Systems Except as stated in HPI: all other systems reviewed are Neg Objective Alert: Yes [place]: Person Mood: Calm Affect: Restricted Memory Intact: Comment (impaired) Hallucinations: Other (none) Delusions: No Delusion Type: Other (internally preoccupied) Suicidal: Ideation (denies) Homicidal: Ideation (denies) Insight/Judgment Very poor Vitals/IOs Vital Signs Date Time Temp Pulse Resp B/P Pulse Ox O2 Delivery O2 Flow Rate FiO2 03/05/17 06:10 97.6 69 18 160/97 96 Intake and Output 03/04/17 03/04/17 03/05/17 08:00 16:00 00:00 Intake Total 240 ml 480 ml 480 ml Balance 240 ml 480 ml 480 ml Assessment & Plan Problem List: (1) Dementia of Alzheimer's type with behavioral disturbance ICD Code: G30.8 (2) DEMENTIA IN OTH DISEASES CLASSD ELSWHR W BEHAVIORAL DISTURB ICD Code: F02.81 Assessment & Plan Estimated LOS: days patient continues diffusely confused and demented, though no significant behavioral problems at this time Justification for Cont. Inpt. At this time patient may decompensate if not placed in an appropriate level of care Discharge Planning To be determined Request HC Surrog/Guard Advoc?: Yes Problem Qualifiers (1) Dementia of Alzheimer's type with behavioral disturbance: Qualified Code: G30.8 - Alzheimer's dementia with behavioral disturbance, unspecified timing of dementia onset Bharath Espinal MD Mar 05, 2017 15:17
[2017-03-05 16:29] VITALS: BP 127/72; PULSE 77; RESP 18; O2SAT 97
[2017-03-06 06:00] VITALS: BP 147/79; PULSE 76; RESP 16; TEMP 98; O2SAT 96
[2017-03-06] MEDS: QUEtiapine FUMARATE 25 MG TAB PO SCH ×3 (08:00→20:17)
[2017-03-06] MEDS: ASPIRIN EC 81 MG TABEC PO SCH (10:28)
[2017-03-06] MEDS: busPIRone HCL 5 MG TAB PO SCH ×2 (10:28→20:17)
[2017-03-06] MEDS: LOSARTAN 50 MG TAB PO SCH (10:28)
[2017-03-06] MEDS: CHOLECALCIFEROL (VIT D3) 1000 UNIT TAB PO SCH (10:29)
[2017-03-06] MEDS: METOPROLOL SUCCINATE 25 MG EXTENDED RELEASE TAB PO SCH (10:29)
[2017-03-06] MEDS: CYANOCOBALAMIN 1,000 MCG TAB PO SCH (10:29)
[2017-03-06] MEDS: PRAVASTATIN SOD 20 MG TAB PO SCH (10:29)
[2017-03-06] MEDS: diphenhydrAMINE HCL 50 MG CAP PO PRN (20:17)
[2017-03-06] MEDS: ACETAMINOPHEN 325 MG TAB PO PRN (20:18)
--- NOTE | 2017-03-06 21:46 | HHI.PYPN ---
Subjective Remarks Pt seen and discussed with staff. No behavioral problems or aggression. He has been cooperative with care and compliant with mediations. No SI/HI Objective Alert: Yes [place]: Person Mood: Calm Affect: Restricted Memory Intact: Comment (impaired) Hallucinations: Other (none) Delusions: No Delusion Type: Other (internally preoccupied) Suicidal: Ideation (denies) Homicidal: Ideation (denies) Insight/Judgment poor Vitals/IOs Vital Signs Date Time Temp Pulse Resp B/P Pulse Ox O2 Delivery O2 Flow Rate FiO2 03/06/17 06:00 98.0 76 16 147/79 96 Intake and Output 03/05/17 03/05/17 03/05/17 07:59 15:59 23:59 Intake Total 120 ml 600 ml 360 ml Balance 120 ml 600 ml 360 ml Assessment & Plan Problem List: (1) Dementia of Alzheimer's type with behavioral disturbance ICD Code: G30.8 (2) DEMENTIA IN OTH DISEASES CLASSD ELSWHR W BEHAVIORAL DISTURB ICD Code: F02.81 Assessment & Plan Continue current tx plan. Estimated LOS: days Justification for Cont. Inpt. risk of decompensation Request HC Surrog/Guard Advoc?: Yes Problem Qualifiers (1) Dementia of Alzheimer's type with behavioral disturbance: Qualified Code: G30.8 - Alzheimer's dementia with behavioral disturbance, unspecified timing of dementia onset Ramona Garcia MD Mar 06, 2017 21:46
[2017-03-07 06:00] VITALS: BP 152/83; PULSE 75; RESP 18; TEMP 98; O2SAT 95
[2017-03-07] MEDS: ASPIRIN EC 81 MG TABEC PO SCH (09:35)
[2017-03-07] MEDS: METOPROLOL SUCCINATE 25 MG EXTENDED RELEASE TAB PO SCH (09:35)
[2017-03-07] MEDS: CHOLECALCIFEROL (VIT D3) 1000 UNIT TAB PO SCH (09:35)
[2017-03-07] MEDS: PRAVASTATIN SOD 20 MG TAB PO SCH (09:35)
[2017-03-07] MEDS: CYANOCOBALAMIN 1,000 MCG TAB PO SCH (09:35)
[2017-03-07] MEDS: busPIRone HCL 5 MG TAB PO SCH ×2 (09:36→21:46)
[2017-03-07] MEDS: LOSARTAN 50 MG TAB PO SCH (09:36)
[2017-03-07] MEDS: QUEtiapine FUMARATE 25 MG TAB PO SCH ×3 (09:37→21:47)
--- NOTE | 2017-03-07 16:24 | HHI.PYPN ---
Subjective Remarks Pt seen and discussed with staff. No behavioral problems on unit. He is cooperative with care. No SI/HI Objective Alert: Yes [place]: Person Mood: Calm Affect: Restricted Memory Intact: Comment (impaired) Hallucinations: Other (none) Delusions: No Delusion Type: Other (internally preoccupied) Suicidal: Ideation (denies) Homicidal: Ideation (denies) Insight/Judgment poor Vitals/IOs Vital Signs Date Time Temp Pulse Resp B/P Pulse Ox O2 Delivery O2 Flow Rate FiO2 03/07/17 06:00 98.0 75 18 152/83 95 Intake and Output 03/06/17 03/06/17 03/07/17 08:00 16:00 00:00 Intake Total 1440 ml Balance 1440 ml Assessment & Plan Problem List: (1) Dementia of Alzheimer's type with behavioral disturbance ICD Code: G30.8 (2) DEMENTIA IN OTH DISEASES CLASSD ELSWHR W BEHAVIORAL DISTURB ICD Code: F02.81 Assessment & Plan Continue current tx plan. Estimated LOS: days Justification for Cont. Inpt. risk of decompensation Request HC Surrog/Guard Advoc?: Yes Problem Qualifiers (1) Dementia of Alzheimer's type with behavioral disturbance: Qualified Code: G30.8 - Alzheimer's dementia with behavioral disturbance, unspecified timing of dementia onset Ramona Garcia MD Mar 07, 2017 16:24
[2017-03-07 18:58] VITALS: BP 125/80; PULSE 84; RESP 16; TEMP 96.5; O2SAT 96
[2017-03-08 05:49] VITALS: BP 116/83; PULSE 63; RESP 18; TEMP 96.1
[2017-03-08] MEDS: ASPIRIN EC 81 MG TABEC PO SCH (09:11)
[2017-03-08] MEDS: PRAVASTATIN SOD 20 MG TAB PO SCH (09:11)
[2017-03-08] MEDS: CHOLECALCIFEROL (VIT D3) 1000 UNIT TAB PO SCH (09:11)
[2017-03-08] MEDS: LOSARTAN 50 MG TAB PO SCH (09:12)
[2017-03-08] MEDS: METOPROLOL SUCCINATE 25 MG EXTENDED RELEASE TAB PO SCH (09:12)
[2017-03-08] MEDS: busPIRone HCL 5 MG TAB PO SCH ×2 (09:12→21:16)
[2017-03-08] MEDS: CYANOCOBALAMIN 1,000 MCG TAB PO SCH (09:12)
[2017-03-08] MEDS: QUEtiapine FUMARATE 25 MG TAB PO SCH ×3 (09:12→21:17)
--- NOTE | 2017-03-08 12:37 | HHI.PYPN ---
Subjective Remarks Patient discussed with treatment team. Patient seen in Saranya chair in day room chart review. Patient compliant medications. Patient no significant behavioral problems noted and remains diffusely confused overall cooperative. For now continue treatment. Placement remains problematic Review of Systems Except as stated in HPI: all other systems reviewed are Neg Objective Alert: Yes [place]: Person Mood: Calm Affect: Restricted Memory Intact: Comment (impaired) Hallucinations: Other (none) Delusions: No Delusion Type: Other (internally preoccupied) Suicidal: Ideation (denies) Homicidal: Ideation (denies) Insight/Judgment Very poor Vitals/IOs Vital Signs Date Time Temp Pulse Resp B/P Pulse Ox O2 Delivery O2 Flow Rate FiO2 03/08/17 05:49 96.1 63 18 116/83 03/07/17 18:58 96 Intake and Output 03/07/17 03/07/17 03/08/17 08:00 16:00 00:00 Intake Total 1680 ml Balance 1680 ml Assessment & Plan Problem List: (1) Dementia of Alzheimer's type with behavioral disturbance ICD Code: G30.8 (2) DEMENTIA IN OTH DISEASES CLASSD ELSWHR W BEHAVIORAL DISTURB ICD Code: F02.81 Assessment & Plan Estimated LOS: days this time patient remains demented and confused, the no significant behavioral problems. For now continue treatment Justification for Cont. Inpt. At this time patient will decompensate if not placed in an appropriate level of care Discharge Planning To be determined Request HC Surrog/Guard Advoc?: Yes Problem Qualifiers (1) Dementia of Alzheimer's type with behavioral disturbance: Qualified Code: G30.8 - Alzheimer's dementia with behavioral disturbance, unspecified timing of dementia onset Bharath Espinal MD Mar 08, 2017 12:36
--- NOTE | 2017-03-08 13:17 | PD.TTN ---
Patient Problems 1. Discharge planning 2. Medication compliance 3. Knowledge deficit 4. Lack of coping skills Progress Toward Goals Provider Input: Dr. Espinal's treatment team met to discuss patient's treatment plan, discharge, and medication. Patient's will remain on unit. Patient is medication compliant. Nurse Input: Patient's nurse Candi RN reports patient walked with her today. Patient is cooperative, needs assists with ADL"S, Medication complaint . Psych Therapist Input: Patient was found sleeping in his Saranya chair. Per reports patient was calm, medication compliant. needed to be hand feed this morning. Patient has not been combative on unit, cooperative and calm. Patient will remain on unit until stablization has been accomplished. Occupational Therapist Input: Melia ANNE reports patient is unable to tolerate groups [facility] Mar 08, 2017 13[facility]17
[2017-03-08 18:17] VITALS: BP 131/74; PULSE 79; RESP 16; TEMP 98.2; O2SAT 79
[2017-03-08] MEDS: diphenhydrAMINE HCL 50 MG CAP PO PRN (21:16)
[2017-03-09 05:40] VITALS: BP 135/80; PULSE 70; RESP 15; TEMP 98.4; O2SAT 93
[2017-03-09] MEDS: CYANOCOBALAMIN 1,000 MCG TAB PO SCH (09:38)
[2017-03-09] MEDS: CHOLECALCIFEROL (VIT D3) 1000 UNIT TAB PO SCH (09:38)
[2017-03-09] MEDS: PRAVASTATIN SOD 20 MG TAB PO SCH (09:38)
[2017-03-09] MEDS: ASPIRIN EC 81 MG TABEC PO SCH (09:38)
[2017-03-09] MEDS: METOPROLOL SUCCINATE 25 MG EXTENDED RELEASE TAB PO SCH (09:38)
[2017-03-09] MEDS: busPIRone HCL 5 MG TAB PO SCH (09:38)
[2017-03-09] MEDS: LOSARTAN 50 MG TAB PO SCH (09:38)
[2017-03-09] MEDS: QUEtiapine FUMARATE 25 MG TAB PO SCH ×3 (09:45→21:51)
--- NOTE | 2017-03-09 10:33 | HHI.PYPN ---
Subjective Remarks Patient seen on unit with nurse Melba and medical student Elsa, chart review, patient drowsy today but arousable to diffusely confused. Staff states though that he has had some increased irritability when approached for hygiene ADLs and various interventions. Patient also noted to have a somewhat red and swollen right eye with small amount of drainage. We'll have hospitalists consult with this. We will discontinue patient's BuSpar. Will increase Seroquel to 50 mg 8 AM 2 PM and 8 PM Review of Systems Except as stated in HPI: all other systems reviewed are Neg Objective Alert: Yes [place]: Person Mood: Calm Affect: Restricted Memory Intact: Comment (impaired) Hallucinations: Other (none) Delusions: No Delusion Type: Other (internally preoccupied) Suicidal: Ideation (denies) Homicidal: Ideation (denies) Insight/Judgment Very poor Vitals/IOs Vital Signs Date Time Temp Pulse Resp B/P Pulse Ox O2 Delivery O2 Flow Rate FiO2 03/09/17 05:40 98.4 70 15 135/80 93 Intake and Output 03/08/17 03/08/17 03/08/17 07:59 15:59 23:59 Intake Total 480 ml 2880 ml Output Total 3 ml Balance -3 ml 480 ml 2880 ml Assessment & Plan Problem List: (1) Dementia of Alzheimer's type with behavioral disturbance ICD Code: G30.8 (2) DEMENTIA IN OTH DISEASES CLASSD ELSWHR W BEHAVIORAL DISTURB ICD Code: F02.81 Assessment & Plan Estimated LOS: days patient continues confused demented, with some behavior problems noted at times of staff interventions. Is also some redness and drainage and patient's right eye will have hospitalist consult with that. She medication changes above Justification for Cont. Inpt. At this time patient may decompensate if not placed on the appropriate level of care Request HC Surrog/Guard Advoc?: Yes Problem Qualifiers (1) Dementia of Alzheimer's type with behavioral disturbance: Qualified Code: G30.8 - Alzheimer's dementia with behavioral disturbance, unspecified timing of dementia onset Bharath Espinal MD Mar 09, 2017 10:33
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
[2017-03-09] MEDS: CIPROFLOXACIN 0.3% OPTH SOLN 2.5 ML BTL EACH EYE SCH (18:29)
[2017-03-09 18:43] VITALS: BP 123/75; PULSE 73; RESP 18; TEMP 96.4; O2SAT 99
[2017-03-09] MEDS: diphenhydrAMINE HCL 50 MG CAP PO PRN (21:51)
[2017-03-10] MEDS: CIPROFLOXACIN 0.3% OPTH SOLN 2.5 ML BTL EACH EYE SCH ×4 (05:32→17:52)
[2017-03-10 05:45] VITALS: BP 144/84; PULSE 69; RESP 16; TEMP 97.9
[2017-03-10 06:47] VITALS: BP 144/84; PULSE 69; RESP 16; TEMP 97.9; O2SAT 100
[2017-03-10] MEDS: METOPROLOL SUCCINATE 25 MG EXTENDED RELEASE TAB PO SCH (08:46)
[2017-03-10] MEDS: QUEtiapine FUMARATE 25 MG TAB PO SCH ×3 (08:46→20:40)
[2017-03-10] MEDS: ASPIRIN EC 81 MG TABEC PO SCH (08:47)
[2017-03-10] MEDS: CHOLECALCIFEROL (VIT D3) 1000 UNIT TAB PO SCH (08:47)
[2017-03-10] MEDS: CYANOCOBALAMIN 1,000 MCG TAB PO SCH (08:49)
[2017-03-10] MEDS: PRAVASTATIN SOD 20 MG TAB PO SCH (08:50)
[2017-03-10] MEDS: LOSARTAN 50 MG TAB PO SCH (08:51)
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
--- NOTE | 2017-03-10 14:48 | HHI.PYPN ---
Subjective Remarks Patient seen in Saranya chair in day room with floor staff, patient drowsy to arousable somewhat irritable and confused. However no significant behavior problems noted. Compliant medication. Placement remains problematic Review of Systems Except as stated in HPI: all other systems reviewed are Neg Objective Alert: Yes [place]: Person Mood: Calm Affect: Restricted Memory Intact: Comment (impaired) Hallucinations: Other (none) Delusions: No Delusion Type: Other (internally preoccupied) Suicidal: Ideation (denies) Homicidal: Ideation (denies) Insight/Judgment Very poor Vitals/IOs Vital Signs Date Time Temp Pulse Resp B/P Pulse Ox O2 Delivery O2 Flow Rate FiO2 03/10/17 06:47 97.9 69 16 144/84 100 Intake and Output 03/09/17 03/09/17 03/10/17 08:00 16:00 00:00 Intake Total 240 ml 720 ml 1440 ml Balance 240 ml 720 ml 1440 ml Assessment & Plan Problem List: (1) Dementia of Alzheimer's type with behavioral disturbance ICD Code: G30.8 (2) DEMENTIA IN OTH DISEASES CLASSD ELSWHR W BEHAVIORAL DISTURB ICD Code: F02.81 Assessment & Plan Estimated LOS: days patient continues confused and demented, but no significant behavioral problems. Placement remains problematic Justification for Cont. Inpt. At this time patient may decompensate if not placed in an appropriate level of care Discharge Planning To be determined Request HC Surrog/Guard Advoc?: Yes Problem Qualifiers (1) Dementia of Alzheimer's type with behavioral disturbance: Qualified Code: G30.8 - Alzheimer's dementia with behavioral disturbance, unspecified timing of dementia onset Bharath Espinal MD Mar 10, 2017 14:48
[2017-03-10 18:00] VITALS: BP 130/92; PULSE 90; TEMP 91.1; O2SAT 98
[2017-03-10] MEDS: MELATONIN 5 MG TAB PO PRN (20:41)
[2017-03-11] MEDS: CIPROFLOXACIN 0.3% OPTH SOLN 2.5 ML BTL EACH EYE SCH ×4 (00:32→18:06)
[2017-03-11 06:00] VITALS: BP 135/83; PULSE 65; RESP 16; TEMP 96.8
[2017-03-11] MEDS: QUEtiapine FUMARATE 25 MG TAB PO SCH ×3 (08:43→20:37)
[2017-03-11] MEDS: LOSARTAN 50 MG TAB PO SCH (08:45)
[2017-03-11] MEDS: CYANOCOBALAMIN 1,000 MCG TAB PO SCH (08:45)
[2017-03-11] MEDS: ASPIRIN EC 81 MG TABEC PO SCH (08:46)
[2017-03-11] MEDS: PRAVASTATIN SOD 20 MG TAB PO SCH (08:46)
[2017-03-11] MEDS: METOPROLOL SUCCINATE 25 MG EXTENDED RELEASE TAB PO SCH (08:46)
[2017-03-11] MEDS: CHOLECALCIFEROL (VIT D3) 1000 UNIT TAB PO SCH (08:46)
--- NOTE | 2017-03-11 13:28 | HHI.PYPN ---
Subjective Remarks Patient seen in dayroom with voices, chart review, patient compliant medication. There is been no significant change in patient's behavior is quiet much of the day though when approached for interventions and staff assistance he becomes irritable. Placement remains problematic Review of Systems Except as stated in HPI: all other systems reviewed are Neg Objective Alert: Yes [place]: Person Mood: Calm Affect: Restricted Memory Intact: Comment (impaired) Hallucinations: Other (none) Delusions: No Delusion Type: Other (internally preoccupied) Suicidal: Ideation (denies) Homicidal: Ideation (denies) Insight/Judgment Poor Vitals/IOs Vital Signs Date Time Temp Pulse Resp B/P Pulse Ox O2 Delivery O2 Flow Rate FiO2 03/11/17 06:00 96.8 65 16 135/83 03/10/17 18:00 98 Intake and Output 03/10/17 03/10/17 03/11/17 08:00 16:00 00:00 Intake Total 240 ml 720 ml Output Total 960 ml Balance -720 ml 720 ml Assessment & Plan Problem List: (1) Dementia of Alzheimer's type with behavioral disturbance ICD Code: G30.8 (2) DEMENTIA IN OTH DISEASES CLASSD ELSWHR W BEHAVIORAL DISTURB ICD Code: F02.81 Assessment & Plan Estimated LOS: days patient continues confused and demented, with episodes of misbehavior Justification for Cont. Inpt. At this time patient will decompensate if not place an appropriate level of care Discharge Planning To be determined Request HC Surrog/Guard Advoc?: Yes Problem Qualifiers (1) Dementia of Alzheimer's type with behavioral disturbance: Qualified Code: G30.8 - Alzheimer's dementia with behavioral disturbance, unspecified timing of dementia onset Bharath Espinal MD Mar 11, 2017 13:28
[2017-03-11 17:11] VITALS: BP 119/78; PULSE 65; RESP 18; TEMP 98.3; O2SAT 96
[2017-03-11] MEDS: ACETAMINOPHEN 325 MG TAB PO PRN (20:37)
[2017-03-11] MEDS: MELATONIN 5 MG TAB PO PRN (20:39)
[2017-03-12] MEDS: CIPROFLOXACIN 0.3% OPTH SOLN 2.5 ML BTL EACH EYE SCH ×4 (00:27→18:00)
[2017-03-12 06:11] VITALS: BP 133/85; PULSE 66; TEMP 97.8; O2SAT 95
[2017-03-12] MEDS: CYANOCOBALAMIN 1,000 MCG TAB PO SCH (09:00)
[2017-03-12] MEDS: CHOLECALCIFEROL (VIT D3) 1000 UNIT TAB PO SCH (10:35)
[2017-03-12] MEDS: ASPIRIN EC 81 MG TABEC PO SCH (10:39)
[2017-03-12] MEDS: LOSARTAN 50 MG TAB PO SCH (10:40)
[2017-03-12] MEDS: PRAVASTATIN SOD 20 MG TAB PO SCH (10:40)
[2017-03-12] MEDS: METOPROLOL SUCCINATE 25 MG EXTENDED RELEASE TAB PO SCH (10:41)
[2017-03-12] MEDS: QUEtiapine FUMARATE 25 MG TAB PO SCH ×3 (10:52→20:41)
--- NOTE | 2017-03-12 12:22 | HHI.PYPN ---
Subjective Remarks Patient seen in dayroom with floor staff, patient seen in Saranya chair, chart reviewed, patient compliant medications. Patient's calm at this time continues confused and disoriented though no behavioral issues. For now continue treatment Review of Systems Except as stated in HPI: all other systems reviewed are Neg Objective Alert: Yes [place]: Person Mood: Calm Affect: Restricted Memory Intact: Comment (impaired) Hallucinations: Other (none) Delusions: No Delusion Type: Other (internally preoccupied) Suicidal: Ideation (denies) Homicidal: Ideation (denies) Insight/Judgment Very poor Vitals/IOs Vital Signs Date Time Temp Pulse Resp B/P Pulse Ox O2 Delivery O2 Flow Rate FiO2 03/12/17 06:11 97.8 66 133/85 95 03/11/17 17:11 18 Intake and Output 03/11/17 03/11/17 03/11/17 07:59 15:59 23:59 Intake Total 240 ml 480 ml Balance 240 ml 480 ml Assessment & Plan Problem List: (1) Dementia of Alzheimer's type with behavioral disturbance ICD Code: G30.8 (2) DEMENTIA IN OTH DISEASES CLASSD ELSWHR W BEHAVIORAL DISTURB ICD Code: F02.81 Assessment & Plan Estimated LOS: days patient is confused demented, overall most evident behavioral problems. At times somewhat resistant to interventions by staff Justification for Cont. Inpt. At the present time patient will decompensate if placed in a lower level of care Discharge Planning To be determined Request HC Surrog/Guard Advoc?: Yes Problem Qualifiers (1) Dementia of Alzheimer's type with behavioral disturbance: Qualified Code: G30.8 - Alzheimer's dementia with behavioral disturbance, unspecified timing of dementia onset Bharath Espinal MD Mar 12, 2017 12:22
[2017-03-12 17:33] VITALS: BP 130/84; PULSE 86; RESP 18; TEMP 97.9; O2SAT 100
[2017-03-12] MEDS: MAGNESIUM HYDROXIDE SUSP 30 ML CUP PO PRN (20:41)
[2017-03-12] MEDS: MELATONIN 5 MG TAB PO PRN (20:41)
[2017-03-13] MEDS: CIPROFLOXACIN 0.3% OPTH SOLN 2.5 ML BTL EACH EYE SCH ×4 (05:27→18:00)
[2017-03-13] MEDS: PRAVASTATIN SOD 20 MG TAB PO SCH (09:00)
[2017-03-13] MEDS: CYANOCOBALAMIN 1,000 MCG TAB PO SCH (09:00)
[2017-03-13] MEDS: ASPIRIN EC 81 MG TABEC PO SCH (09:42)
[2017-03-13] MEDS: METOPROLOL SUCCINATE 25 MG EXTENDED RELEASE TAB PO SCH (09:42)
[2017-03-13] MEDS: LOSARTAN 50 MG TAB PO SCH (09:42)
[2017-03-13] MEDS: CHOLECALCIFEROL (VIT D3) 1000 UNIT TAB PO SCH (09:43)
[2017-03-13] MEDS: QUEtiapine FUMARATE 25 MG TAB PO SCH ×3 (09:44→21:57)
--- NOTE | 2017-03-13 12:43 | HHI.PYPN ---
Subjective Remarks Patient was seen and case discussed with nursing. Patient is alert and oriented 1. Minimally interactive with interview. Eating and sleeping well per nursing. Compliant with medications. Objective Alert: Yes [place]: Person Mood: Calm Affect: Restricted Memory Intact: Comment (impaired) Hallucinations: Other (none) Delusions: No Delusion Type: Other (internally preoccupied) Suicidal: Ideation (denies) Homicidal: Ideation (denies) Insight/Judgment Poor Vitals/IOs Vital Signs Date Time Temp Pulse Resp B/P Pulse Ox O2 Delivery O2 Flow Rate FiO2 03/12/17 17:33 97.9 86 18 130/84 100 Intake and Output 03/12/17 03/12/17 03/13/17 08:00 16:00 00:00 Intake Total 0 ml 700 ml Balance 0 ml 700 ml Assessment & Plan Problem List: (1) Dementia of Alzheimer's type with behavioral disturbance ICD Code: G30.8 (2) DEMENTIA IN OTH DISEASES CLASSD ELSWHR W BEHAVIORAL DISTURB ICD Code: F02.81 Assessment & Plan Continue current treatment plan Justification for Cont. Inpt. Patient will decompensate in a less restrictive setting Request HC Surrog/Guard Advoc?: Yes Problem Qualifiers (1) Dementia of Alzheimer's type with behavioral disturbance: Qualified Code: G30.8 - Alzheimer's dementia with behavioral disturbance, unspecified timing of dementia onset Omkar Lazcano DO Mar 13, 2017 12:43
[2017-03-14] MEDS: CIPROFLOXACIN 0.3% OPTH SOLN 2.5 ML BTL EACH EYE SCH ×5 (05:29→23:46)
[2017-03-14 05:45] VITALS: BP 138/72; PULSE 69; RESP 16; TEMP 99.2; O2SAT 96
[2017-03-14] MEDS: QUEtiapine FUMARATE 25 MG TAB PO SCH ×3 (08:00→21:21)
[2017-03-14] MEDS: PRAVASTATIN SOD 20 MG TAB PO SCH (09:00)
[2017-03-14] MEDS: LOSARTAN 50 MG TAB PO SCH (09:00)
[2017-03-14] MEDS: CYANOCOBALAMIN 1,000 MCG TAB PO SCH (09:00)
[2017-03-14] MEDS: METOPROLOL SUCCINATE 25 MG EXTENDED RELEASE TAB PO SCH (09:00)
[2017-03-14] MEDS: CHOLECALCIFEROL (VIT D3) 1000 UNIT TAB PO SCH (09:00)
[2017-03-14] MEDS: ASPIRIN EC 81 MG TABEC PO SCH (09:00)
--- NOTE | 2017-03-14 15:12 | HHI.PYPN ---
Subjective Remarks Patient was seen and case discussed with nursing. Patient remains mildly sedated during the interview. He is apathetic not engaging. Alert and oriented 1. Behaving well on the unit. Compliant with medications. Remains internally preoccupied. Family is asking for a haircut. Medical team came to evaluate patient and we will recommend a heavy equipment sales manager to check on his pacemaker per request from Objective Alert: Yes [place]: Person Mood: Calm Affect: Restricted Memory Intact: Comment (impaired) Hallucinations: Other (none) Delusions: No Delusion Type: Other (internally preoccupied) Suicidal: Ideation (denies) Homicidal: Ideation (denies) Insight/Judgment Poor Vitals/IOs Vital Signs Date Time Temp Pulse Resp B/P (MAP) Pulse Ox O2 Delivery O2 Flow Rate FiO2 03/14/17 05:45 99.2 69 16 138/72 (94) 96 Intake and Output 03/14/17 03/14/17 03/15/17 08:00 16:00 00:00 Intake Total 240 ml 240 ml Balance 240 ml 240 ml Assessment & Plan Problem List: (1) Dementia of Alzheimer's type with behavioral disturbance ICD Codes: G30.8 - Other Alzheimer's disease; F02.81 - Dementia in other diseases classified elsewhere with behavioral disturbance Status: Acute (2) DEMENTIA IN OTH DISEASES CLASSD ELSWHR W BEHAVIORAL DISTURB ICD Codes: F02.81 - DEMENTIA IN OTH DISEASES CLASSD ELSWHR W BEHAVIORAL DISTURB Status: Acute Assessment & Plan Continue current treatment plan Justification for Cont. Inpt. Patient would decompensate in a less restrictive setting Request HC Surrog/Guard Advoc?: Yes Problem Qualifiers (1) Dementia of Alzheimer's type with behavioral disturbance: Omkar Lazcano DO Mar 14, 2017 15:12
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
[2017-03-14 18:18] VITALS: BP 137/75; PULSE 68; RESP 16; TEMP 99.1; O2SAT 99
[2017-03-15] MEDS: CIPROFLOXACIN 0.3% OPTH SOLN 2.5 ML BTL EACH EYE SCH ×3 (04:50→17:02)
[2017-03-15 06:22] VITALS: BP 149/70; PULSE 67; RESP 17; TEMP 97.6
[2017-03-15] MEDS: ASPIRIN EC 81 MG TABEC PO SCH (09:16)
[2017-03-15] MEDS: METOPROLOL SUCCINATE 25 MG EXTENDED RELEASE TAB PO SCH (09:16)
[2017-03-15] MEDS: CHOLECALCIFEROL (VIT D3) 1000 UNIT TAB PO SCH (09:17)
[2017-03-15] MEDS: LOSARTAN 50 MG TAB PO SCH (09:17)
[2017-03-15] MEDS: CYANOCOBALAMIN 1,000 MCG TAB PO SCH (09:17)
[2017-03-15] MEDS: PRAVASTATIN SOD 20 MG TAB PO SCH (09:17)
[2017-03-15] MEDS: QUEtiapine FUMARATE 25 MG TAB PO SCH ×3 (09:19→20:47)
--- NOTE | 2017-03-15 12:33 | HHI.PYPN ---
Subjective Remarks Patient seen in day room with nurse Candy, chart reviewed, patient compliant medications. Patient sitting in Saranya chair drowsy but awake a little to alert the diffusely confused. Was cooperative this morning with his ADLs and his a.m. meds Review of Systems Except as stated in HPI: all other systems reviewed are Neg Objective Alert: Yes [place]: Person Mood: Calm Affect: Restricted Memory Intact: Comment (impaired) Hallucinations: Other (none) Delusions: No Delusion Type: Other (internally preoccupied) Suicidal: Ideation (denies) Homicidal: Ideation (denies) Insight/Judgment Very poor Vitals/IOs Vital Signs Date Time Temp Pulse Resp B/P (MAP) Pulse Ox O2 Delivery O2 Flow Rate FiO2 03/15/17 06:22 97.6 67 17 149/70 (96) 03/14/17 18:18 99 Assessment & Plan Problem List: (1) Dementia of Alzheimer's type with behavioral disturbance ICD Codes: G30.8 - Other Alzheimer's disease; F02.81 - Dementia in other diseases classified elsewhere with behavioral disturbance Status: Acute (2) DEMENTIA IN OTH DISEASES CLASSD ELSWHR W BEHAVIORAL DISTURB ICD Codes: F02.81 - DEMENTIA IN OTH DISEASES CLASSD ELSWHR W BEHAVIORAL DISTURB Status: Acute Assessment & Plan Estimated LOS: days patient continues confused and demented, though no significant behavior problems at this time, compliant medications Justification for Cont. Inpt. At this time patient may decompensate if not placed in an appropriate level of care Discharge Planning To be determined Request HC Surrog/Guard Advoc?: Yes Problem Qualifiers (1) Dementia of Alzheimer's type with behavioral disturbance: Bharath Espinal MD Mar 15, 2017 12:33
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
[2017-03-15 18:17] VITALS: BP 149/87; PULSE 72; RESP 16; TEMP 99.1; O2SAT 96
[2017-03-16] MEDS: CIPROFLOXACIN 0.3% OPTH SOLN 2.5 ML BTL EACH EYE SCH ×3 (00:04→12:02)
[2017-03-16 06:22] VITALS: BP 163/81; PULSE 66; RESP 20; TEMP 97.8; O2SAT 94
[2017-03-16] MEDS: PRAVASTATIN SOD 20 MG TAB PO SCH (09:00)
[2017-03-16] MEDS: CYANOCOBALAMIN 1,000 MCG TAB PO SCH (10:04)
[2017-03-16] MEDS: LOSARTAN 50 MG TAB PO SCH (10:05)
[2017-03-16] MEDS: CHOLECALCIFEROL (VIT D3) 1000 UNIT TAB PO SCH (10:05)
[2017-03-16] MEDS: METOPROLOL SUCCINATE 25 MG EXTENDED RELEASE TAB PO SCH (10:05)
[2017-03-16] MEDS: ASPIRIN EC 81 MG TABEC PO SCH (10:05)
[2017-03-16] MEDS: QUEtiapine FUMARATE 25 MG TAB PO SCH ×3 (10:06→20:24)
--- NOTE | 2017-03-16 12:55 | HHI.PYPN ---
Subjective Remarks Patient seen in dayroom with floor staff, chart review, patient compliant medications. Patient continues calm with me at times napping but arousable to alert him confused. Patient with mild irritability but overall redirectable. Review of Systems Except as stated in HPI: all other systems reviewed are Neg Objective Alert: Yes [place]: Person Mood: Calm Affect: Restricted Memory Intact: Comment (impaired) Hallucinations: Other (none) Delusions: No Delusion Type: Other (internally preoccupied) Suicidal: Ideation (denies) Homicidal: Ideation (denies) Insight/Judgment Very poor Vitals/IOs Vital Signs Date Time Temp Pulse Resp B/P (MAP) Pulse Ox O2 Delivery O2 Flow Rate FiO2 03/16/17 06:22 97.8 66 20 163/81 (108) 94 Intake and Output 03/16/17 03/16/17 03/17/17 08:00 16:00 00:00 Intake Total 240 ml 480 ml Balance 240 ml 480 ml Assessment & Plan Problem List: (1) Dementia of Alzheimer's type with behavioral disturbance ICD Codes: G30.8 - Other Alzheimer's disease; F02.81 - Dementia in other diseases classified elsewhere with behavioral disturbance Status: Acute (2) DEMENTIA IN OTH DISEASES CLASSD ELSWHR W BEHAVIORAL DISTURB ICD Codes: F02.81 - DEMENTIA IN OTH DISEASES CLASSD ELSWHR W BEHAVIORAL DISTURB Status: Chronic Assessment & Plan Estimated LOS: days patient remains confused and demented, though no significant behavioral problems. Justification for Cont. Inpt. At this time patient will decompensate have not placed in an appropriate level of care Discharge Planning To be determined Request HC Surrog/Guard Advoc?: Yes Problem Qualifiers (1) Dementia of Alzheimer's type with behavioral disturbance: Bharath Espinal MD Mar 16, 2017 12:55
[2017-03-16] MEDS: MELATONIN 5 MG TAB PO PRN (20:24)
[2017-03-17 05:55] VITALS: BP 150/84; PULSE 71; RESP 17; O2SAT 98
[2017-03-17] MEDS: QUEtiapine FUMARATE 25 MG TAB PO SCH ×3 (07:49→19:55)
[2017-03-17] MEDS ORDERED: cloNIDine HCL 0.1 MG TAB PO PRN (08:00)
[2017-03-17] MEDS: PRAVASTATIN SOD 20 MG TAB PO SCH (08:14)
[2017-03-17] MEDS: ASPIRIN EC 81 MG TABEC PO SCH (08:14)
[2017-03-17] MEDS: METOPROLOL SUCCINATE 25 MG EXTENDED RELEASE TAB PO SCH (08:15)
[2017-03-17] MEDS: CYANOCOBALAMIN 1,000 MCG TAB PO SCH (08:15)
[2017-03-17] MEDS: LOSARTAN 50 MG TAB PO SCH (08:25)
[2017-03-17] MEDS: CHOLECALCIFEROL (VIT D3) 1000 UNIT TAB PO SCH (08:27)
--- NOTE | 2017-03-17 11:32 | HHI.PYPN ---
Subjective Remarks Patient seen in dayroom and flexion of, patient drowsy, but arousable to alert and confused. Compliant medications. No significant behavioral problems. Placement remains problematic Review of Systems Except as stated in HPI: all other systems reviewed are Neg Objective Alert: Yes [place]: Person Mood: Calm Affect: Restricted Memory Intact: Comment (impaired) Hallucinations: Other (none) Delusions: No Delusion Type: Other (internally preoccupied) Suicidal: Ideation (denies) Homicidal: Ideation (denies) Insight/Judgment Very poor Vitals/IOs Vital Signs Date Time Temp Pulse Resp B/P (MAP) Pulse Ox O2 Delivery O2 Flow Rate FiO2 03/17/17 05:55 71 17 150/84 (106) 98 03/16/17 06:22 97.8 Intake and Output 03/17/17 03/17/17 03/18/17 08:00 16:00 00:00 Intake Total 240 ml Balance 240 ml Assessment & Plan Problem List: (1) Dementia of Alzheimer's type with behavioral disturbance ICD Codes: G30.8 - Other Alzheimer's disease; F02.81 - Dementia in other diseases classified elsewhere with behavioral disturbance Status: Acute (2) DEMENTIA IN OTH DISEASES CLASSD ELSWHR W BEHAVIORAL DISTURB ICD Codes: F02.81 - DEMENTIA IN OTH DISEASES CLASSD ELSWHR W BEHAVIORAL DISTURB Status: Chronic Assessment & Plan Estimated LOS: days patient continues confused and demented though no significant behavioral problems Justification for Cont. Inpt. At this time patient may decompensate if not placed in an appropriate level of care Discharge Planning To be determined Request HC Surrog/Guard Advoc?: Yes Problem Qualifiers (1) Dementia of Alzheimer's type with behavioral disturbance: Bharath Espinal MD Mar 17, 2017 11:32
[2017-03-17 17:54] VITALS: BP 168/73; PULSE 72; RESP 17; TEMP 97.8; O2SAT 100
[2017-03-18 05:55] VITALS: BP 151/92; PULSE 85; RESP 16; TEMP 98.4; O2SAT 94
[2017-03-18] MEDS: PRAVASTATIN SOD 20 MG TAB PO SCH (09:11)
[2017-03-18] MEDS: LOSARTAN 50 MG TAB PO SCH (09:11)
[2017-03-18] MEDS: METOPROLOL SUCCINATE 25 MG EXTENDED RELEASE TAB PO SCH (09:12)
[2017-03-18] MEDS: QUEtiapine FUMARATE 25 MG TAB PO SCH ×3 (09:12→19:34)
[2017-03-18] MEDS: CYANOCOBALAMIN 1,000 MCG TAB PO SCH (09:12)
[2017-03-18] MEDS: ASPIRIN EC 81 MG TABEC PO SCH (09:12)
[2017-03-18] MEDS: CHOLECALCIFEROL (VIT D3) 1000 UNIT TAB PO SCH (09:12)
--- NOTE | 2017-03-18 14:11 | HHI.PYPN ---
Subjective Remarks Patient seen in day room in Saranya chair with nurse Candi, chart reviewed. Patient continues somewhat drowsy arousable to alert confused disoriented. States his episodes of missed behavior are few or related to interventions. For now continue treatment Review of Systems Except as stated in HPI: all other systems reviewed are Neg Objective Alert: Yes [place]: Person Mood: Calm Affect: Restricted Memory Intact: Comment (impaired) Hallucinations: Other (none) Delusions: No Delusion Type: Other (internally preoccupied) Suicidal: Ideation (denies) Homicidal: Ideation (denies) Insight/Judgment Poor Vitals/IOs Vital Signs Date Time Temp Pulse Resp B/P (MAP) Pulse Ox O2 Delivery O2 Flow Rate FiO2 03/18/17 05:55 98.4 85 16 151/92 (111) 94 Intake and Output 03/18/17 03/18/17 03/19/17 08:00 16:00 00:00 Intake Total 480 ml Balance 480 ml Assessment & Plan Problem List: (1) Dementia of Alzheimer's type with behavioral disturbance ICD Codes: G30.8 - Other Alzheimer's disease; F02.81 - Dementia in other diseases classified elsewhere with behavioral disturbance Status: Acute (2) DEMENTIA IN OTH DISEASES CLASSD ELSWHR W BEHAVIORAL DISTURB ICD Codes: F02.81 - DEMENTIA IN OTH DISEASES CLASSD ELSWHR W BEHAVIORAL DISTURB Status: Chronic Assessment & Plan Estimated LOS: days patient continues demented and confused no significant behavioral problems. Placement remains problematic Justification for Cont. Inpt. The present time patient may decompensate has not placed in an appropriate level of care Discharge Planning To be determined Request HC Surrog/Guard Advoc?: Yes Problem Qualifiers (1) Dementia of Alzheimer's type with behavioral disturbance: Bharath Espinal MD Mar 18, 2017 14:11
[2017-03-19 05:39] VITALS: BP 157/92; PULSE 75; RESP 18; TEMP 98.1
[2017-03-19] MEDS: CYANOCOBALAMIN 1,000 MCG TAB PO SCH (09:46)
[2017-03-19] MEDS: CHOLECALCIFEROL (VIT D3) 1000 UNIT TAB PO SCH (09:46)
[2017-03-19] MEDS: ASPIRIN EC 81 MG TABEC PO SCH (09:46)
[2017-03-19] MEDS: QUEtiapine FUMARATE 25 MG TAB PO SCH ×4 (09:46→21:06)
[2017-03-19] MEDS: PRAVASTATIN SOD 20 MG TAB PO SCH (09:46)
[2017-03-19] MEDS: METOPROLOL SUCCINATE 25 MG EXTENDED RELEASE TAB PO SCH (09:46)
[2017-03-19] MEDS: LOSARTAN 50 MG TAB PO SCH (09:46)
--- NOTE | 2017-03-19 14:16 | HHI.PYPN ---
Subjective Remarks Patient seen in day room the floor staff, patient dosing though arousable to alert and diffusely confused. No significant behavioral problems noted, compliant medication Review of Systems Except as stated in HPI: all other systems reviewed are Neg Objective Alert: Yes [place]: Person Mood: Calm Affect: Restricted Memory Intact: Comment (impaired) Hallucinations: Other (none) Delusions: No Delusion Type: Other (internally preoccupied) Suicidal: Ideation (denies) Homicidal: Ideation (denies) Insight/Judgment Very poor Vitals/IOs Vital Signs Date Time Temp Pulse Resp B/P (MAP) Pulse Ox O2 Delivery O2 Flow Rate FiO2 03/19/17 05:39 98.1 75 18 157/92 (113) 03/18/17 05:55 94 Intake and Output 03/19/17 03/19/17 03/19/17 07:59 15:59 23:59 Intake Total 1200 ml Balance 1200 ml Assessment & Plan Problem List: (1) Dementia of Alzheimer's type with behavioral disturbance ICD Codes: G30.8 - Other Alzheimer's disease; F02.81 - Dementia in other diseases classified elsewhere with behavioral disturbance Status: Acute (2) DEMENTIA IN OTH DISEASES CLASSD ELSWHR W BEHAVIORAL DISTURB ICD Codes: F02.81 - DEMENTIA IN OTH DISEASES CLASSD ELSWHR W BEHAVIORAL DISTURB Status: Chronic Assessment & Plan Estimated LOS: days she continues demented confused though no significant behavior problems at this time, compliant medications Justification for Cont. Inpt. At this time patient will decompensate if no place to appropriate level of care Discharge Planning To be determined Request HC Surrog/Guard Advoc?: Yes Problem Qualifiers (1) Dementia of Alzheimer's type with behavioral disturbance: Bharath Espinal MD Mar 19, 2017 14:16
[2017-03-19 18:04] VITALS: BP 158/95; PULSE 91; RESP 18; TEMP 97.8; O2SAT 95
[2017-03-20 06:47] VITALS: BP 120/60; PULSE 77; RESP 15; TEMP 98.4; O2SAT 96
[2017-03-20] MEDS: QUEtiapine FUMARATE 25 MG TAB PO SCH ×3 (08:00→20:01)
[2017-03-20] MEDS: LOSARTAN 50 MG TAB PO SCH (09:40)
[2017-03-20] MEDS: PRAVASTATIN SOD 20 MG TAB PO SCH (09:40)
[2017-03-20] MEDS: CYANOCOBALAMIN 1,000 MCG TAB PO SCH (09:40)
[2017-03-20] MEDS: METOPROLOL SUCCINATE 25 MG EXTENDED RELEASE TAB PO SCH (09:40)
[2017-03-20] MEDS: CHOLECALCIFEROL (VIT D3) 1000 UNIT TAB PO SCH (09:40)
[2017-03-20] MEDS: ASPIRIN EC 81 MG TABEC PO SCH (09:40)
[2017-03-20 18:24] VITALS: BP 145/84; PULSE 68; RESP 17; TEMP 98.1; O2SAT 97
--- NOTE | 2017-03-20 19:35 | HHI.PYPN ---
Subjective Remarks Pt seen and discussed with staff. He has been compliant with care. No behavioral problems. Oriented to self only. He has been napping off and on for most of the day. Objective Alert: Yes [place]: Person Mood: Calm Affect: Restricted Memory Intact: Comment (impaired) Hallucinations: Other (none) Delusions: No Delusion Type: Other (internally preoccupied) Suicidal: Ideation (denies) Homicidal: Ideation (denies) Insight/Judgment poor Vitals/IOs Vital Signs Date Time Temp Pulse Resp B/P (MAP) Pulse Ox O2 Delivery O2 Flow Rate FiO2 03/20/17 18:24 98.1 68 17 145/84 (104) 97 Intake and Output 03/20/17 03/20/17 03/20/17 07:59 15:59 23:59 Intake Total 240 ml 120 ml Balance 240 ml 120 ml Assessment & Plan Problem List: (1) Dementia of Alzheimer's type with behavioral disturbance ICD Codes: G30.8 - Other Alzheimer's disease; F02.81 - Dementia in other diseases classified elsewhere with behavioral disturbance Status: Acute (2) DEMENTIA IN OTH DISEASES CLASSD ELSWHR W BEHAVIORAL DISTURB ICD Codes: F02.81 - DEMENTIA IN OTH DISEASES CLASSD ELSWHR W BEHAVIORAL DISTURB Status: Chronic Assessment & Plan Continue current tx plan Estimated LOS: days Justification for Cont. Inpt. risk of decompensation Request HC Surrog/Guard Advoc?: Yes Problem Qualifiers (1) Dementia of Alzheimer's type with behavioral disturbance: Ramona Garcia MD Mar 20, 2017 19:35
[2017-03-21 06:31] VITALS: BP 151/87; PULSE 70; RESP 18; TEMP 98.1; O2SAT 96
[2017-03-21] MEDS: CYANOCOBALAMIN 1,000 MCG TAB PO SCH (09:00)
[2017-03-21] MEDS: LOSARTAN 50 MG TAB PO SCH (09:00)
[2017-03-21] MEDS: ASPIRIN EC 81 MG TABEC PO SCH (09:00)
[2017-03-21] MEDS: CHOLECALCIFEROL (VIT D3) 1000 UNIT TAB PO SCH (09:01)
[2017-03-21] MEDS: METOPROLOL SUCCINATE 25 MG EXTENDED RELEASE TAB PO SCH (09:01)
[2017-03-21] MEDS: PRAVASTATIN SOD 20 MG TAB PO SCH (09:01)
[2017-03-21] MEDS: QUEtiapine FUMARATE 25 MG TAB PO SCH ×3 (09:02→20:57)
--- NOTE | 2017-03-21 13:59 | HHI.PYPN ---
Subjective Remarks Pt seen and discussed with staff. Pt has been cooperative with care. He spends most of time in dayroom.He is pleasant during interview. No behavioral problems. No SI/HI Objective Alert: Yes [place]: Person Mood: Calm Affect: Restricted Memory Intact: Comment (impaired) Hallucinations: Other (none) Delusions: No Delusion Type: Other (internally preoccupied) Suicidal: Ideation (denies) Homicidal: Ideation (denies) Insight/Judgment poor Vitals/IOs Vital Signs Date Time Temp Pulse Resp B/P (MAP) Pulse Ox O2 Delivery O2 Flow Rate FiO2 03/21/17 06:31 98.1 70 18 151/87 (108) 96 Intake and Output 03/21/17 03/21/17 03/21/17 07:59 15:59 23:59 Intake Total 240 ml Balance 240 ml Assessment & Plan Problem List: (1) Dementia of Alzheimer's type with behavioral disturbance ICD Codes: G30.8 - Other Alzheimer's disease; F02.81 - Dementia in other diseases classified elsewhere with behavioral disturbance Status: Acute (2) DEMENTIA IN OTH DISEASES CLASSD ELSWHR W BEHAVIORAL DISTURB ICD Codes: F02.81 - DEMENTIA IN OTH DISEASES CLASSD ELSWHR W BEHAVIORAL DISTURB Status: Chronic Assessment & Plan Continue current tx plan. Estimated LOS: days Justification for Cont. Inpt. risk of decompensation Request HC Surrog/Guard Advoc?: Yes Problem Qualifiers (1) Dementia of Alzheimer's type with behavioral disturbance: Ramona Garcia MD Mar 21, 2017 13:59
[2017-03-21 19:09] VITALS: BP 134/69; PULSE 70; RESP 16; TEMP 97.5; O2SAT 95
[2017-03-21] MEDS: hydrOXYzine HCL 50 MG TAB PO PRN (20:57)
[2017-03-22 06:09] VITALS: BP 135/94; PULSE 65; RESP 16; TEMP 97.7; O2SAT 100
[2017-03-22] MEDS: QUEtiapine FUMARATE 25 MG TAB PO SCH ×3 (08:48→20:05)
[2017-03-22] MEDS: ASPIRIN EC 81 MG TABEC PO SCH (08:48)
[2017-03-22] MEDS: CYANOCOBALAMIN 1,000 MCG TAB PO SCH (08:48)
[2017-03-22] MEDS: METOPROLOL SUCCINATE 25 MG EXTENDED RELEASE TAB PO SCH (08:48)
[2017-03-22] MEDS: LOSARTAN 50 MG TAB PO SCH (08:48)
[2017-03-22] MEDS: CHOLECALCIFEROL (VIT D3) 1000 UNIT TAB PO SCH (08:49)
[2017-03-22] MEDS: PRAVASTATIN SOD 20 MG TAB PO SCH (08:49)
--- NOTE | 2017-03-22 12:49 | HHI.PYPN ---
Subjective Remarks Patient seen in dayroom the floor staff, chart reviewed, patient compliant medications. Patient continues calm at times dosing to arousable. He continues confused disoriented with no significant behavioral problems. Placement remains problematic Review of Systems Except as stated in HPI: all other systems reviewed are Neg Objective Alert: Yes [place]: Person Mood: Calm Affect: Restricted Memory Intact: Comment (impaired) Hallucinations: Other (none) Delusions: No Delusion Type: Other (internally preoccupied) Suicidal: Ideation (denies) Homicidal: Ideation (denies) Insight/Judgment Very poor Vitals/IOs Vital Signs Date Time Temp Pulse Resp B/P (MAP) Pulse Ox O2 Delivery O2 Flow Rate FiO2 03/22/17 06:09 97.7 65 16 135/94 (108) 100 Intake and Output 03/22/17 03/22/17 03/23/17 08:00 16:00 00:00 Intake Total 240 ml 240 ml Balance 240 ml 240 ml Assessment & Plan Problem List: (1) Dementia of Alzheimer's type with behavioral disturbance ICD Codes: G30.8 - Other Alzheimer's disease; F02.81 - Dementia in other diseases classified elsewhere with behavioral disturbance Status: Acute (2) DEMENTIA IN OTH DISEASES CLASSD ELSWHR W BEHAVIORAL DISTURB ICD Codes: F02.81 - DEMENTIA IN OTH DISEASES CLASSD ELSWHR W BEHAVIORAL DISTURB Status: Chronic Assessment & Plan Estimated LOS: days patient continues demented confused though no significant behavioral problems. Justification for Cont. Inpt. At this time patient will decompensate if placed in a lower level of care Discharge Planning To be determined Request HC Surrog/Guard Advoc?: Yes Problem Qualifiers (1) Dementia of Alzheimer's type with behavioral disturbance: Bharath Espinal MD Mar 22, 2017 12:49
[2017-03-22 18:00] VITALS: BP 141/70; PULSE 73; RESP 16; TEMP 97.3; O2SAT 100
[2017-03-23 05:40] VITALS: BP 155/87; PULSE 63; RESP 18; TEMP 97.4; O2SAT 97
[2017-03-23] MEDS: PRAVASTATIN SOD 20 MG TAB PO SCH (09:00)
[2017-03-23] MEDS: CHOLECALCIFEROL (VIT D3) 1000 UNIT TAB PO SCH (09:10)
[2017-03-23] MEDS: ASPIRIN EC 81 MG TABEC PO SCH (09:10)
[2017-03-23] MEDS: QUEtiapine FUMARATE 25 MG TAB PO SCH (09:10)
[2017-03-23] MEDS: METOPROLOL SUCCINATE 25 MG EXTENDED RELEASE TAB PO SCH (09:10)
[2017-03-23] MEDS: CYANOCOBALAMIN 1,000 MCG TAB PO SCH (09:10)
[2017-03-23] MEDS: LOSARTAN 50 MG TAB PO SCH (09:12)
[2017-03-23] MEDS ORDERED: VITA1000 PO (10:55)
[2017-03-23] MEDS ORDERED: COZA50TA PO (10:55)
[2017-03-23] MEDS ORDERED: PRAV20TA PO (10:55)
[2017-03-23] MEDS ORDERED: QUET1TAB7 PO (10:55)
[2017-03-23] MEDS ORDERED: AMLO10 PO (10:55)
[2017-03-23] MEDS ORDERED: VITA10002 PO (10:55)
[2017-03-23] MEDS ORDERED: METO25TA6 PO (10:55)
[2017-03-23] MEDS ORDERED: ASPI-99 PO (10:55)
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
== END 2017-03-23 13:30 | DRG 57 ==
LOC: NEPD 19:34 → NEDA 12-21 10:08 → H250 12-21 10:50
PROVIDERS: ADMIT Psychiatry & Neurology Psychiatry; ATTEND Psychiatry & Neurology Psychiatry
DX: G30.9 Alzheimer's disease, unspecified (principal); N17.9 Acute kidney failure, unspecified; F02.81 Dementia in other diseases classified elsewhere, unspecified severity, with behavioral disturbance; E78.5 Hyperlipidemia, unspecified; I10 Essential (primary) hypertension; I25.10 Atherosclerotic heart disease of native coronary artery without angina pectoris; H10.9 Unspecified conjunctivitis; Z95.0 Presence of cardiac pacemaker
CPT/HCPCS: 80048; 80053; 80061; 81001; 82306; 82607; 83036; 84443; 85025; J1200; J1630; J2060; P9612; Q0163